=== PATIENT | female | born 1940 | race Two or more races ===

== ENCOUNTER 2018-05-24 12:49 | Inpatient (IN) | payer MEDICARE ==
[~2018-05-24] VITALS: Ht 154.9 cm; Wt 54.7 kg
[2018-05-24 13:09] VITALS: BP 148/94
[2018-05-24] MEDS ORDERED: MAG HYDROX/AL HYDROX/SIMETH 30 ML ORAL.SUSP PO PRN (13:45)
[2018-05-24] MEDS ORDERED: traMADol 50 MG TABLET PO PRN (13:45)
[2018-05-24] MEDS ORDERED: PROPAFENONE HCL 150 MG PO SCH (14:00)
[2018-05-24] MEDS ORDERED: GABA-585 PO (14:07)
[2018-05-24] MEDS ORDERED: MAG355OR12 PO (14:07)
[2018-05-24] MEDS ORDERED: APIX5TAB3 PO (14:07)
[2018-05-24] MEDS ORDERED: DONE5TAB7 PO (14:07)
[2018-05-24] MEDS ORDERED: ACET500T68 PO (14:07)
[2018-05-24] MEDS ORDERED: CALC-30 PO (14:07)
[2018-05-24] MEDS ORDERED: TRAM50TA PO (14:07)
[2018-05-24] MEDS ORDERED: RISP0.5T24 PO (14:07)
[2018-05-24] MEDS ORDERED: TRAZ-120 PO (14:07)
[2018-05-24] MEDS ORDERED: ACET325T9 PO (14:07)
[2018-05-24] MEDS ORDERED: LEVE500T6 PO (14:07)
[2018-05-24] MEDS ORDERED: MIRA25TA PO (14:07)
[2018-05-24] MEDS ORDERED: BISA10SU55 RC (14:07)
[2018-05-24] MEDS ORDERED: MAGN2400 PO (14:07)
[2018-05-24] MEDS ORDERED: LORA0.5T PO ×2 (14:07)
[2018-05-24] MEDS ORDERED: LEVO100T5 PO (14:07)
[2018-05-24] MEDS ORDERED: PROP150T2 PO (14:07)
[2018-05-24] MEDS ORDERED: OLAN5TAB9 PO (14:07)
[2018-05-24] MEDS ORDERED: METHYL SALICYLATE/MENTHOL TOPICAL OINTMENT 29GM TUBE. TP PRN (14:15)
[2018-05-24] MEDS: GABAPENTIN 100 MG CAPSULE. PO SCH ×2 (14:19→20:42)
[2018-05-24] MEDS ORDERED: LORazepam 0.5 MG TABLET PO PRN (14:30)
[2018-05-24] MEDS ORDERED: ACETAMINOPHEN 500 MG TABLET PO PRN (14:30)
[2018-05-24] MEDS ORDERED: BISACODYL 10 MG SUPP.RECT PR PRN (14:30)
[2018-05-24] MEDS ORDERED: risperiDONE 0.5 MG TABLET. PO PRN (14:45)
[2018-05-24] MEDS ORDERED: traZODone 50 MG TABLET. PO PRN (14:45)
[2018-05-24 15:17] LABS: BASO % 0 % (0-3); EOS # 0.2 x10^3/uL (0.0-0.7); EOS % 4 % (0-3); HEMATOCRIT 41.3 % (36.0-47.0); HEMOGLOBIN 13.7 g/dL (12.0-15.5); LYMPH # 1.6 x10^3/uL (1.0-4.8); LYMPH % 30 % (24-48); MEAN CORPUSCULAR HEMOGLOBIN 32 pg (25-35); MEAN CORPUSCULAR HGB CONC 33 g/dL (31-37); MEAN CORPUSCULAR VOLUME 97 fL (79-100); MONO # 0.4 x10^3/uL (0.0-1.1); MONO % 7 % (0-9); NEUT # 3.2 x10^3uL (1.8-7.7); NEUT % 59 % (31-73); PLATELET COUNT 252 x10^3/uL (140-400); RED BLOOD COUNT 4.25 x10^6/uL (3.50-5.40); RED CELL DISTRIBUTION WIDTH 13.3 % (11.5-14.5); WHITE BLOOD COUNT 5.5 x10^3/uL (4.0-11.0)
[2018-05-24 15:29] LABS: ALBUMIN 3.8 g/dL (3.4-5.0); ALBUMIN/GLOBULIN RATIO 0.9 (1.0-1.7); CALCIUM 9.1 mg/dL (8.5-10.1); CREATININE 1.8 mg/dL (0.6-1.0); GFR 27.1; MAGNESIUM 2.2 mg/dL (1.8-2.4); POTASSIUM 4.5 mmol/L (3.5-5.1); TOTAL BILIRUBIN 0.4 mg/dL (0.2-1.0); TOTAL PROTEIN 8.1 g/dL (6.4-8.2)
[2018-05-24 15:35] VITALS: BP 120/78
[2018-05-24] MEDS: PROPAFENONE 150 MG TABLET. PO SCH ×2 (16:18→20:42)
[2018-05-24] MEDS: APIXABAN 5 MG TABLET. PO SCH (20:42)
[2018-05-24] MEDS: ACETAMINOPHEN 325 MG TABLET PO SCH (20:42)
[2018-05-24] MEDS: levETIRAcetam 500 MG TABLET PO SCH (20:42)
[2018-05-24] MEDS: DONEPEZIL HCL 5 MG TABLET. PO SCH (20:42)
[2018-05-24 20:44] VITALS: BP 133/84
[2018-05-24] MEDS ORDERED: PROPAFENONE 150 MG TABLET. PO SCH (21:00)
--- NOTE | 2018-05-24 22:24 | PDOC ---
Exam Note: Christopher Note: Please also refer to the separate dictated note~for this date of service dictated separately. Discussed the patient with Nursing staff reviewed the chart.~Reviewed interim history and current functioning. Reviewed vital signs,~ Labs/ Radiology~and current medications noted below. Continue current treatment with the changes noted in the dictated addendum note Assessment: Vital Signs: Vital Signs Date Time Temp Pulse Resp B/P (MAP) Pulse Ox O2 Delivery O2 Flow Rate FiO2 05/24/18 20:44 82 133/84 (100) 05/24/18 15:35 97.7 16 97 Labs: Laboratory Tests Test 05/24/18 15:00 White Blood Count 5.5 x10^3/uL (4.0-11.0) Red Blood Count 4.25 x10^6/uL (3.50-5.40) Hemoglobin 13.7 g/dL (12.0-15.5) Hematocrit 41.3 % (36.0-47.0) Mean Corpuscular Volume 97 fL (79-100) Mean Corpuscular Hemoglobin 32 pg (25-35) Mean Corpuscular Hemoglobin Concent 33 g/dL (31-37) Red Cell Distribution Width 13.3 % (11.5-14.5) Platelet Count 252 x10^3/uL (140-400) Neutrophils (%) (Auto) 59 % (31-73) Lymphocytes (%) (Auto) 30 % (24-48) Monocytes (%) (Auto) 7 % (0-9) Eosinophils (%) (Auto) 4 % (0-3) H Basophils (%) (Auto) 0 % (0-3) Neutrophils # (Auto) 3.2 x10^3uL (1.8-7.7) Lymphocytes # (Auto) 1.6 x10^3/uL (1.0-4.8) Monocytes # (Auto) 0.4 x10^3/uL (0.0-1.1) Eosinophils # (Auto) 0.2 x10^3/uL (0.0-0.7) Basophils # (Auto) 0.0 x10^3/uL (0.0-0.2) Sodium Level 141 mmol/L (136-145) Potassium Level 4.5 mmol/L (3.5-5.1) Chloride Level 104 mmol/L (98-107) Carbon Dioxide Level 29 mmol/L (21-32) Anion Gap 8 (6-14) Blood Urea Nitrogen 26 mg/dL (7-20) H Creatinine 1.8 mg/dL (0.6-1.0) H Estimated GFR (Cockcroft-Gault) 27.1 BUN/Creatinine Ratio 14 (6-20) Glucose Level 101 mg/dL (70-99) H Calcium Level 9.1 mg/dL (8.5-10.1) Magnesium Level 2.2 mg/dL (1.8-2.4) Total Bilirubin 0.4 mg/dL (0.2-1.0) Aspartate Amino Transferase (AST) 24 U/L (15-37) Alanine Aminotransferase (ALT) 23 U/L (14-59) Alkaline Phosphatase 78 U/L (46-116) Total Protein 8.1 g/dL (6.4-8.2) Albumin 3.8 g/dL (3.4-5.0) Albumin/Globulin Ratio 0.9 (1.0-1.7) L Current Medications: Meds: Current Medications Acetaminophen (Tylenol) 650 mg BID PO Last administered on 05/24/18at 20:42; Start 05/24/18 at 21:00 Gabapentin (Neurontin) 200 mg TID PO Last administered on 05/24/18at 20:42; Start 05/24/18 at 14:30 Levothyroxine Sodium (Synthroid) 100 mcg DAILYAC PO ; Start 05/25/18 at 07:30 Al Hydroxide/Mg Hydroxide (Mylanta Plus Xs) 20 ml PRN Q4HRS PRN PO DYSPEPSIA; Start 05/24/18 at 13:45 Mirabegron (Myrbetriq) 25 mg DAILY PO ; Start 05/25/18 at 09:00 Tramadol HCl (Ultram) 50 mg PRN Q8HRS PRN PO PAIN; Start 05/24/18 at 13:45 Acetaminophen (Tylenol) 1,000 mg PRN Q6HRS PRN PO PAIN / TEMP; Start 05/24/18 at 14:30 Apixaban (Eliquis) 5 mg BID PO Last administered on 05/24/18at 20:42; Start at 21:00 Bisacodyl (Dulcolax Supp) 10 mg PRN DAILY PRN [place] CONSTIPATION; Start 05/24/18 at 14:30 Calcium/Vitamin D (Oscal D 500mg/ 200uts) 1 tab DAILY PO ; Start 05/25/18 at 09: 00 Donepezil HCl (Aricept) 5 mg HS PO Last administered on 05/24/18at 20:42; Start 05/24/18 at 21:00 Levetiracetam (Keppra) 500 mg BID PO Last administered on 05/24/18at 20:42; Start 05/24/18 at 21:00 Lorazepam (Ativan) 0.5 mg DAILYWLUN PO ; Start 05/25/18 at 12:00 Lorazepam (Ativan) 0.5 mg PRN Q6HRS PRN PO ANXIETY / AGITATION; Start 05/24/18 at 14:30 Magnesium Hydroxide (Milk Of Magnesia) 2,400 mg PRN QHS PRN PO CONSTIPATION; Start 05/24/18 at 14:30 Olanzapine (ZyPREXA ZYDIS) 2.5 mg PRN Q6HRS PRN PO ANXIETY / AGITATION; Start 05/24/18 at 14:45 Non-Formulary Medication (Propafenone Hcl ) 150 mg TID PO ; Start 05/24/18 at 14 :00; Stop 05/24/18 at 14:37; Status DC Risperidone (RisperDAL) 0.5 mg PRN Q12HR PRN PO ANXIETY / AGITATION; Start at 14:45 Trazodone HCl (Desyrel) 50 mg PRN QHS PRN PO INSOMNIA; Start 05/24/18 at 14:45 Multi-Ingredient Ointment (Analgesic [place]) 1 norbert PRN QID PRN TP MUSCLE PAIN; Start 05/24/18 at 14:15 Propafenone HCl (Rythmol) 150 mg TID PO ; Start 05/24/18 at 21:00; Status Cancel Propafenone HCl (Rythmol) 150 mg TID PO Last administered on 05/24/18at 20:42; Start 05/24/18 at 15:00 Active Scripts Active Reported Acetaminophen 500 Mg Tablet 1,000 Mg PO PRN Q6HRS PRN Lorazepam 0.5 Mg Tablet 0.5 Mg PO PRN Q6HRS PRN Dulcolax (Bisacodyl) 10 Mg Supp.rect 10 Mg RC PRN DAILY PRN Maalox Maximum Strength Susp (Mag Hydrox/Al Hydrox/Simeth) 355 Ml Oral.susp 20 Ml PO PRN Q4HRS PRN Propafenone Hcl 150 Mg Tablet 150 Mg PO TID Myrbetriq (Mirabegron) 25 Mg Tab.er.24h 25 Mg PO DAILY Trazodone Hcl 50 Mg Tablet 50 Mg PO PRN QHS PRN Tramadol Hcl (Tramadol HCl) 50 Mg Tablet 50 Mg PO PRN Q8HRS PRN Risperdal (Risperidone) 0.5 Mg Tablet 0.5 Mg PO PRN Q12HR PRN Olanzapine 5 Mg Tablet 2.5 Mg PO PRN Q6HRS PRN Milk Of Magnesia (Magnesium Hydroxide) 2,400 Mg/10 Ml Oral.susp 2,400 Mg PO PRN QHS PRN Tylenol (Acetaminophen) 325 Mg Tablet 650 Mg PO BID Lorazepam 0.5 Mg Tablet 0.5 Mg PO DAILYWLUN Levothyroxine Sodium 100 Mcg Tablet 100 Mcg PO DAILYAC Levetiracetam 500 Mg Tablet 500 Mg PO BID Gabapentin (Gabapentin) 100 Mg Capsule 200 Mg PO TID Eliquis (Apixaban) 5 Mg Tablet 5 Mg PO BID Donepezil Hcl 5 Mg Tablet 5 Mg PO HS Calcium 500 + Vit D 400 Tablet (Calcium Carbonate/Vitamin D3) 1 Each Tablet 1 Each PO DAILY I have reviewed the current psychotropics carefully including drug interactions. Risk benefit ratio favors no change other than as noted in my dictated progress note. VIKI VALLE MD May 24, 2018 22:24
[2018-05-25 05:53] VITALS: BP 133/73
[2018-05-25] MEDS ORDERED: LEVOTHYROXINE 100 MCG TABLET PO SCH (07:30)
[2018-05-25] MEDS: levETIRAcetam 500 MG TABLET PO SCH ×2 (07:51→20:12)
[2018-05-25] MEDS: APIXABAN 5 MG TABLET. PO SCH ×2 (07:51→20:12)
[2018-05-25] MEDS: ACETAMINOPHEN 325 MG TABLET PO SCH ×2 (07:52→20:12)
[2018-05-25] MEDS: CALCIUM CARB/VIT D3 500/200 TABLET PO SCH (07:56)
[2018-05-25] MEDS: GABAPENTIN 100 MG CAPSULE. PO SCH ×3 (07:56→20:12)
[2018-05-25] MEDS: PROPAFENONE 150 MG TABLET. PO SCH ×3 (07:57→20:14)
[2018-05-25] MEDS: MIRABEGRON 25 MG TAB.ER.24H PO SCH (07:57)
[2018-05-25] MEDS: LORazepam 0.5 MG TABLET PO SCH (12:10)
[2018-05-25 12:57] LABS: THYROID STIM HORMONE (TSH) 2.841 uIU/mL (0.358-3.740)
[2018-05-25 16:35] VITALS: BP 148/74
[2018-05-25 17:43] LABS: BILIRUBIN,URINE NEG (NEG); CLARITY,URINE HAZY; COLOR,URINE YELLOW; GLUCOSE,URINE NEG (NEG); UROBILINOGEN,URINE 1 mg/dL (0.2 mg/dL)
[2018-05-25 17:44] LABS: BACTERIA,URINE MANY /HPF (0-FEW); HYALINE CASTS, URINE OCC /HPF; NITRITE,URINE NEG (NEG); SQUAMOUS EPITHELIAL CELL,UR OCC /LPF
--- NOTE | 2018-05-25 18:10 | EKG ---
[address] [address] Test Date: 2018-05-24 Test Time: 16:12:02 Pat Name: MARIA LUISA RUFFIN Department: Room: [address] [place] [address] Gender: F Tile Setter: : 1940 Requested By: VIKI VALLE Order Number: [id number] Reading MD: Joseph Stevenson Measurements Intervals [place] Rate: 77 P: 28 DC: 194 QRS: -21 QRSD: 126 T: 134 QT: 416 QTc: 473 Interpretive Statements SINUS RHYTHM LEFT BUNDLE BRANCH BLOCK ABNORMAL ECG RI6.01 No previous ECG available for comparison Electronically Signed On 06-03-2018 17:03:43 [employer] by Joseph Stevenson
[2018-05-25] MEDS ORDERED: CHOLECALCIFEROL (VITAMIN D3) 50,000 UNIT CAPSULE PO SCH (18:15)
[2018-05-25] MEDS: DONEPEZIL HCL 5 MG TABLET. PO SCH (20:12)
--- NOTE | 2018-05-25 20:12 | HP ---
ADMIT DATE: 05/25/2018 PSYCHIATRIC ADMISSION HISTORY/EVALUATION This note covers elements not covered in my initial note of 05/25/2018. I have discussed with nursing staff several times since the patient's admission and prior to the patient's admission including reviewing referral information with Maribel Deluca, giving admission orders to nursing staff and earlier during the day today as the patient was extremely agitated, psychotic, started on Zyprexa p.r.n. IDENTIFYING DATA: The patient is a 77-year-old female referred from the [facility] by Dr. Hooker, her primary care physician on account of worsening confusion within the context of her dementia, probably vascular with delusion, behavioral disturbance. The patient had become aggressive at the facility, was having explosive behaviors. She flipped over a table through her coffee, was verbally and physically aggressive to staff and peers, resistive to medications and agitated. She had failed outpatient psychiatric interventions, was quite psychotic, confused. She had been previously sent to the Emergency Room on 05/20/2018, received Zyprexa intramuscular in the ER, returned back to the facility. She is unmanageable at the facility and is being admitted by her son, Bridger Villafana, who is her DPOA together with her daughter, Hoda Puente. CHIEF COMPLAINT: "I'm okay." After I visit the patient was "quite insistent" shut the door behind you. She is quite hard of hearing. I had to talk loudly to communicate with her. HISTORY OF PRESENT ILLNESS: The patient has a history of dementia, probably vascular, possibly Alzheimer's. She has been getting more confused recently having some sleep and appetite changes with worsening paranoia, agitation, aggression as noted above. Behaviors have been dangerous, out of control, especially after she flipped over a table and threw coffee at the facility. No clear history of bipolar disorder, suicidal or homicidal ideation. PAST PSYCHIATRIC HISTORY: As above. PAST MEDICAL HISTORY: Positive for atrial fibrillation, hypertension, degenerative joint disease, pacemaker in place, hypothyroidism, history of syncope, history of DVT, cardiomyopathy, seizure disorder, hard of hearing, GERD, osteoporosis, tachycardia, progressive memory deficits. ACCU-CHEKS: None. DIET: Regular. Takes medications whole, ambulates independently and with walker. CODE STATUS: Full code. ALLERGIES: ADHESIVE, AMITRIPTYLINE, PENICILLIN, SULFA, KETOROLAC, NEVANAC. FAMILY HISTORY: Noncontributory. CURRENT PSYCHOTROPICS: Aricept 5 mg a day, Ativan 0.5 1200 and p.r.n. q. 6 hours, Zyprexa 2.5 mg q. 6 hours p.r.n. psychosis, agitation. Risperdal 0.5 mg q. 12 hours p.r.n., Keppra 500 b.i.d., Neurontin 200 mg t.i.d., trazodone 50 mg at bedtime p.r.n. FAMILY HISTORY: Noncontributory. SOCIAL HISTORY: No history of alcohol, drug abuse, physical, sexual or elder abuse. She is not known to be a perpetrator. REACTION TO HOSPITALIZATION: The patient accepting of this, but oblivious to way she is. ASSETS: Supportive family, stable living at the [facility]. MENTAL STATUS EXAMINATION: The patient was seen individually evening of 05/25/2018. She is quite irritable, had to talk loudly. She is quite hard of hearing. Insight, judgment, recent and remote memory, attention, concentration, fund of knowledge poor, consistent with her diagnosis. She minimizes being depressed, but seems extremely anxious, somewhat paranoid, very confused. LABORATORY DATA: Reviewed. IMPRESSION: Major neurocognitive disorder, probably vascular with delusion, depression, behavioral disturbance; anxiety disorder, unspecified; impulse control disorder, unspecified. Rest as above. PLAN: Admit to geropsychiatry unit at [facility]. I will see the patient daily individually from a psychiatric standpoint, medical followup with Dr. Mejia. Continue the patient on her current psychotropics and Zyprexa was initiated p.r.n. Discontinue the Risperdal p.r.n. Start Zoloft 25 mg a day for 3 days, then 50 mg a day thereafter. We will make further adjustments as clinically indicated. Keep open the option of using BuSpar for anxiety and/or Depakote as a mood stabilizer. MAN Eddi VALLE MD DR: SPIKE/stefano JOB#: [id number] / [id number]
--- NOTE | 2018-05-25 21:19 | CONS ---
DATE OF CONSULTATION: 05/25/2018 REASON FOR CONSULTATION: Medical management. HISTORY OF PRESENT ILLNESS: The patient is a 77-year-old female, resident at [facility], who was admitted on account of having displaying explosive behavior, flipped over a table, threw coffee, verbally and physically aggressive to staff and peers, resistive to medication, agitation, all this in a background of dementia with behavioral disturbances. She apparently was seen at [facility] and has had extensive lab work that seemed to be within acceptable range. [facility]. PAST MEDICAL HISTORY: Significant for atrial fibrillation, hypertension, degenerative joint disease, pacemaker, hypothyroidism, syncope, history of DVT, cardiomyopathy, seizure disorder, hearing loss, gastroesophageal reflux disease, osteoporosis, tachycardia and dementia. PAST SURGICAL HISTORY: Unremarkable. ALLERGIES: SHE IS ALLERGIC TO ADHESIVES, AMITRIPTYLINE, PENICILLIN, SULFA, KETOROLAC AND NEVANAC. FAMILY HISTORY: Noncontributory. SOCIAL HISTORY: She is a resident at [facility]. She apparently does not smoke, drink alcohol or recreational drugs. She ambulates with a walker. MEDICATIONS: She is currently on following medications: She is on Aricept 5 mg at bedtime, apixaban 5 mg twice a day, propafenone 150 mg 3 times a day, tramadol 50 mg every 8 hours, acetaminophen 650 mg p.o. b.i.d. and 1000 mg every 6 hours as needed, gabapentin 200 mg 3 times a day, Keppra 500 mg twice a day, trazodone 50 mg at bedtime, olanzapine 2.5 mg every 6 hours, risperidone 0.5 mg every 12 hours and lorazepam 0.5 mg daily with lunch, lorazepam 0.5 mg every 6 hours as needed for anxiety and agitation. She is on calcium carbonate with vitamin D3 one tablet once a day, Maalox 20 mL every 4 hours as needed for dyspepsia, bisacodyl 10 mg suppositories as needed rectally for constipation, magnesium hydroxide for milk of magnesia 30 mL p.o. daily p.r.n. for constipation, levothyroxine sodium 100 mcg daily before breakfast and Myrbetriq 25 mg daily for overactive bladder. REVIEW OF SYSTEMS: Unobtainable as the patient is very hard of hearing and demented. PHYSICAL EXAMINATION: GENERAL: When I examined her this afternoon, she was sitting comfortably in her chair, in no apparent respiratory distress, she was pale, but no jaundice, cyanosis or thyromegaly. No jugular venous distension. No limb edema. VITAL SIGNS: Her heart rate was 67, blood pressure 148/74, temperature was 98, respiratory rate was 18 and oxygen saturation was 97%. HEAD, EYES, EARS, NOSE AND THROAT: Showed normocephalic, atraumatic. NECK: Supple. HEART: Showed normal first and second heart sounds. No gallop, rub or murmur. CHEST: Clear to auscultation. No crepitation or rhonchi. ABDOMEN: Distended, soft, nontender. No guarding or rigidity. No organomegaly. All hernial orifices intact. Bowel sounds normal. NEUROLOGIC: She is very hard of hearing, otherwise, all other cranial nerves are intact. EXTREMITIES: She moves extremities without difficulty. She ambulates with a walker. LABORATORY DATA: Today showed a white cell count of 5500, hemoglobin 14, hematocrit 41, MCV 97 and platelet count 252,000. Her chemistry showed a serum sodium 141, potassium 4.5, chloride 104, bicarbonate 29, anion gap of 8, BUN 26, creatinine 1.8. Estimated GFR was 27 mL per minute. Her glucose was 101, calcium was 9.1, magnesium was 2.2. Serum iron was 52, TIBC was 323, iron saturation was 16%. Her total bilirubin, AST, ALT, alkaline phosphatase were normal. Total protein 8.1, albumin 3.8. Her serum triglycerides were 99. Total cholesterol 184, LDL cholesterol was 111, VLDL was 19 and HDL cholesterol was 54, ratio was 3. Her vitamin B12 was 328 pg/mL, 25-hydroxy vitamin D was only 24.9. Her TSH was normal. Urinalysis showed that the urine was yellow, hazy with a pH of 8.5, specific gravity 1.015. There was small amount of protein. The urine was negative for glucose, ketones, small amount of blood, negative for nitrite, small amount of leukocyte esterase, 1-2 rbc's, 11-20 wbc's, and many bacteria. Her treponema pallidum antibody was nonreactive. IMPRESSION: In summary, this is a 77-year-old female patient, a resident at [facility], who was admitted on account of explosive behavior, flipped over a table, threw coffee, verbally and physically aggressive to staff and peers, resistive to medication and very agitated, all this in a background of dementia with behavioral disturbances. She has multiple medical problems including atrial fibrillation, hypertension, history of deep vein thrombosis, hypothyroidism, cardiomyopathy, seizure disorder, severe sensorineural deafness, gastroesophageal reflux disease, osteoporosis, dementia. She seemed to be, all in all, medically stable. All her vital signs are within acceptable range. Her lab works are all within normal range except perhaps for vitamin D deficiency. Urinalysis showed that she has leukocytosis and many bacteria and I will definitely send the urine for culture and sensitivity. She does not seem to be symptomatic. I would wait for the culture and sensitivity, and once we have the culture and sensitivity, we will start her on antibiotic unless she is decompensated, becomes afebrile, and we will start her sooner on that. Thank you, Dr. Jones, for allowing me to participate in the care of this patient. LEONARDO GONZALES MD DR: ARLENE/stefano JOB#: [id number] / [id number]
[2018-05-25 22:08] LABS: THYROXINE 7.1 ug/dL (4.5-12.0)
--- NOTE | 2018-05-25 22:28 | PDOC ---
Exam Note: Christopher Note: Please also refer to the separate dictated note~for this date of service dictated separately.~Patient seen individually. Discussed the patient with Nursing staff reviewed the chart.~Reviewed interim history and current functioning. Reviewed vital signs,~Labs/ Radiology~and current medications noted below. Continue current treatment with the changes noted in the dictated addendum note Assessment: Vital Signs: Vital Signs Date Time Temp Pulse Resp B/P (MAP) Pulse Ox O2 Delivery O2 Flow Rate FiO2 05/25/18 20:14 67 148/74 05/25/18 16:35 98.0 18 97 I&O Intake and Output 05/25/18 07:01 Intake Total 360 ml Balance 360 ml Intake Oral 360 ml Labs: Laboratory Tests Test 05/25/18 17:00 Urine Collection Type Unknown Urine Color Yellow Urine Clarity Hazy Urine pH 8.5 Urine Specific [place] 1.015 Urine Protein 30 mg/dl (NEG-TRACE) Urine Glucose (UA) Neg mg/dL (NEG) Urine Ketones (Stick) Neg mg/dL (NEG) Urine Blood Small (NEG) Urine Nitrite Neg (NEG) Urine Bilirubin Neg (NEG) Urine Urobilinogen Dipstick 1 mg/dL (0.2 mg/dL) Urine Leukocyte Esterase Small (NEG) Urine RBC 1-2 /HPF (0-2) Urine WBC 11-20 /HPF (0-4) Urine Squamous Epithelial Cells Occ /LPF Urine Bacteria Many /HPF (0-FEW) Urine Hyaline Casts Occ /HPF Current Medications: Meds: Current Medications Acetaminophen (Tylenol) 650 mg BID PO Last administered on 05/25/18at 20:12; Start 05/24/18 at 21:00 Gabapentin (Neurontin) 200 mg TID PO Last administered on 05/25/18at 20:12; Start 05/24/18 at 14:30 Levothyroxine Sodium (Synthroid) 100 mcg DAILYAC PO Last administered on at 07:56; Start 05/25/18 at 07:30; Stop 05/25/18 at 07:59; Status DC Al Hydroxide/Mg Hydroxide (Mylanta Plus Xs) 20 ml PRN Q4HRS PRN PO DYSPEPSIA; Start 05/24/18 at 13:45 Mirabegron (Myrbetriq) 25 mg DAILY PO Last administered on 05/25/18at 07:57; Start 05/25/18 at 09:00 Tramadol HCl (Ultram) 50 mg PRN Q8HRS PRN PO PAIN; Start 05/24/18 at 13:45 Acetaminophen (Tylenol) 1,000 mg PRN Q6HRS PRN PO PAIN / TEMP; Start 05/24/18 at 14:30 Apixaban (Eliquis) 5 mg BID PO Last administered on 05/25/18at 20:12; Start at 21:00 Bisacodyl (Dulcolax Supp) 10 mg PRN DAILY PRN [place] CONSTIPATION; Start 05/24/18 at 14:30 Calcium/Vitamin D (Oscal D 500mg/ 200uts) 1 tab DAILY PO Last administered on at 07:56; Start 05/25/18 at 09:00 Donepezil HCl (Aricept) 5 mg HS PO Last administered on 05/25/18at 20:12; Start 05/24/18 at 21:00 Levetiracetam (Keppra) 500 mg BID PO Last administered on 05/25/18at 20:12; Start 05/24/18 at 21:00 Lorazepam (Ativan) 0.5 mg DAILYWLUN PO Last administered on 05/25/18at 12:10; Start 05/25/18 at 12:00 Lorazepam (Ativan) 0.5 mg PRN Q6HRS PRN PO ANXIETY / AGITATION; Start 05/24/18 at 14:30 Magnesium Hydroxide (Milk Of Magnesia) 2,400 mg PRN QHS PRN PO CONSTIPATION; Start 05/24/18 at 14:30 Olanzapine (ZyPREXA ZYDIS) 2.5 mg PRN Q6HRS PRN PO ANXIETY / AGITATION Last administered on 05/25/18at 10:15; Start 05/24/18 at 14:45 Non-Formulary Medication (Propafenone Hcl ) 150 mg TID PO ; Start 05/24/18 at 14 :00; Stop 05/24/18 at 14:37; Status DC Risperidone (RisperDAL) 0.5 mg PRN Q12HR PRN PO ANXIETY / AGITATION; Start at 14:45; Stop 05/25/18 at 21:57; Status DC Trazodone HCl (Desyrel) 50 mg PRN QHS PRN PO INSOMNIA; Start 05/24/18 at 14:45 Multi-Ingredient Ointment (Analgesic [place]) 1 norbert PRN QID PRN TP MUSCLE PAIN; Start 05/24/18 at 14:15 Propafenone HCl (Rythmol) 150 mg TID PO ; Start 05/24/18 at 21:00; Status Cancel Propafenone HCl (Rythmol) 150 mg TID PO Last administered on 05/25/18at 20:14; Start 05/24/18 at 15:00 Levothyroxine Sodium (Synthroid) 100 mcg 0600 PO ; Start 05/26/18 at 06:00 Vitamin D (Vitamin D3) 50,000 unit WEEKLY PO ; Start 05/25/18 at 18:15; Stop at 18:36; Status DC Vitamin D (Vitamin D3) 50,000 unit WEEKLY PO ; Start 05/26/18 at 09:00 Sertraline HCl (Zoloft) 25 mg DAILY PO ; Start 05/26/18 at 09:00; Stop 05/29/18 at 08:59 Sertraline HCl (Zoloft) 50 mg DAILY PO ; Start 05/29/18 at 09:00 Active Scripts Active Reported Acetaminophen 500 Mg Tablet 1,000 Mg PO PRN Q6HRS PRN Lorazepam 0.5 Mg Tablet 0.5 Mg PO PRN Q6HRS PRN Dulcolax (Bisacodyl) 10 Mg Supp.rect 10 Mg RC PRN DAILY PRN Maalox Maximum Strength Susp (Mag Hydrox/Al Hydrox/Simeth) 355 Ml Oral.susp 20 Ml PO PRN Q4HRS PRN Propafenone Hcl 150 Mg Tablet 150 Mg PO TID Myrbetriq (Mirabegron) 25 Mg Tab.er.24h 25 Mg PO DAILY Trazodone Hcl 50 Mg Tablet 50 Mg PO PRN QHS PRN Tramadol Hcl (Tramadol HCl) 50 Mg Tablet 50 Mg PO PRN Q8HRS PRN Risperdal (Risperidone) 0.5 Mg Tablet 0.5 Mg PO PRN Q12HR PRN Olanzapine 5 Mg Tablet 2.5 Mg PO PRN Q6HRS PRN Milk Of Magnesia (Magnesium Hydroxide) 2,400 Mg/10 Ml Oral.susp 2,400 Mg PO PRN QHS PRN Tylenol (Acetaminophen) 325 Mg Tablet 650 Mg PO BID Lorazepam 0.5 Mg Tablet 0.5 Mg PO DAILYWLUN Levothyroxine Sodium 100 Mcg Tablet 100 Mcg PO DAILYAC Levetiracetam 500 Mg Tablet 500 Mg PO BID Gabapentin (Gabapentin) 100 Mg Capsule 200 Mg PO TID Eliquis (Apixaban) 5 Mg Tablet 5 Mg PO BID Donepezil Hcl 5 Mg Tablet 5 Mg PO HS Calcium 500 + Vit D 400 Tablet (Calcium Carbonate/Vitamin D3) 1 Each Tablet 1 Each PO DAILY I have reviewed the current psychotropics carefully including drug interactions. Risk benefit ratio favors no change other than as noted in my dictated progress note. Diagnosis: Problems: (1) Anxiety disorder (2) Dementia, vascular, with delusions (3) Dementia, vascular, with depression (4) Dementia in Alzheimer's disease with delusions (5) Dementia in Alzheimer's disease with depression (6) Impulse control disorder VIKI VALLE MD May 25, 2018 22:28
[2018-05-25 23:11] LABS: HEMOGLOBIN A1C 5.3 % (4.8-5.6)
[2018-05-26] MEDS: LEVOTHYROXINE 100 MCG TABLET PO SCH (05:27)
[2018-05-26 05:31] VITALS: BP 114/77
[2018-05-26] MEDS: CALCIUM CARB/VIT D3 500/200 TABLET PO SCH (07:48)
[2018-05-26] MEDS: ACETAMINOPHEN 325 MG TABLET PO SCH ×2 (07:48→20:08)
[2018-05-26] MEDS: MIRABEGRON 25 MG TAB.ER.24H PO SCH (07:49)
[2018-05-26] MEDS: levETIRAcetam 500 MG TABLET PO SCH ×2 (07:49→20:08)
[2018-05-26] MEDS: GABAPENTIN 100 MG CAPSULE. PO SCH ×3 (07:49→20:09)
[2018-05-26] MEDS: PROPAFENONE 150 MG TABLET. PO SCH ×3 (07:49→20:09)
[2018-05-26] MEDS: APIXABAN 5 MG TABLET. PO SCH ×2 (07:49→20:09)
[2018-05-26] MEDS: SERTRALINE 25 MG TABLET. PO SCH (07:50)
[2018-05-26] MEDS: CHOLECALCIFEROL (VITAMIN D3) 50,000 UNIT CAPSULE PO SCH (07:51)
[2018-05-26] MEDS: LORazepam 0.5 MG TABLET PO SCH (11:58)
[2018-05-26 15:43] VITALS: BP 107/70
[2018-05-26] MEDS: DONEPEZIL HCL 5 MG TABLET. PO SCH (20:09)
--- NOTE | 2018-05-26 22:19 | PDOC ---
Exam Note: Christopher Note: Please also refer to the separate dictated note~for this date of service dictated separately.~Patient seen individually. Discussed the patient with Nursing staff reviewed the chart.~Reviewed interim history and current functioning. Reviewed vital signs,~Labs/ Radiology~and current medications noted below. Continue current treatment with the changes noted in the dictated addendum note Assessment: Vital Signs: Vital Signs Date Time Temp Pulse Resp B/P (MAP) Pulse Ox O2 Delivery O2 Flow Rate FiO2 05/26/18 20:09 72 107/70 05/26/18 15:43 97.2 20 94 05/26/18 05:31 Room Air I&O Intake and Output 05/26/18 07:01 Intake Total 1320 ml Balance 1320 ml Intake Oral 1320 ml Current Medications: Meds: Current Medications Acetaminophen (Tylenol) 650 mg BID PO Last administered on 05/26/18at 20:08; Start 05/24/18 at 21:00 Gabapentin (Neurontin) 200 mg TID PO Last administered on 05/26/18at 20:09; Start 05/24/18 at 14:30 Levothyroxine Sodium (Synthroid) 100 mcg DAILYAC PO Last administered on at 07:56; Start 05/25/18 at 07:30; Stop 05/25/18 at 07:59; Status DC Al Hydroxide/Mg Hydroxide (Mylanta Plus Xs) 20 ml PRN Q4HRS PRN PO DYSPEPSIA; Start 05/24/18 at 13:45 Mirabegron (Myrbetriq) 25 mg DAILY PO Last administered on 05/26/18at 07:49; Start 05/25/18 at 09:00 Tramadol HCl (Ultram) 50 mg PRN Q8HRS PRN PO PAIN; Start 05/24/18 at 13:45 Acetaminophen (Tylenol) 1,000 mg PRN Q6HRS PRN PO PAIN / TEMP; Start 05/24/18 at 14:30 Apixaban (Eliquis) 5 mg BID PO Last administered on 05/26/18at 20:09; Start at 21:00 Bisacodyl (Dulcolax Supp) 10 mg PRN DAILY PRN [place] CONSTIPATION; Start 05/24/18 at 14:30 Calcium/Vitamin D (Oscal D 500mg/ 200uts) 1 tab DAILY PO Last administered on at 07:48; Start 05/25/18 at 09:00 Donepezil HCl (Aricept) 5 mg HS PO Last administered on 05/26/18at 20:09; Start 05/24/18 at 21:00 Levetiracetam (Keppra) 500 mg BID PO Last administered on 05/26/18 20:08; Start 05/24/18 at 21:00 Lorazepam (Ativan) 0.5 mg DAILYWLUN PO Last administered on 05/26/18at 11:58; Start 05/25/18 at 12:00 Lorazepam (Ativan) 0.5 mg PRN Q6HRS PRN PO ANXIETY / AGITATION; Start 05/24/18 at 14:30 Magnesium Hydroxide (Milk Of Magnesia) 2,400 mg PRN QHS PRN PO CONSTIPATION; Start 05/24/18 at 14:30 Olanzapine (ZyPREXA ZYDIS) 2.5 mg PRN Q6HRS PRN PO ANXIETY / AGITATION Last administered on 05/26/18at 12:33; Start 05/24/18 at 14:45 Non-Formulary Medication (Propafenone Hcl ) 150 mg TID PO ; Start 05/24/18 at 14 :00; Stop 05/24/18 at 14:37; Status DC Risperidone (RisperDAL) 0.5 mg PRN Q12HR PRN PO ANXIETY / AGITATION; Start at 14:45; Stop 05/25/18 at 21:57; Status DC Trazodone HCl (Desyrel) 50 mg PRN QHS PRN PO INSOMNIA; Start 05/24/18 at 14:45 Multi-Ingredient Ointment (Analgesic [place]) 1 norbert PRN QID PRN TP MUSCLE PAIN; Start 05/24/18 at 14:15 Propafenone HCl (Rythmol) 150 mg TID PO ; Start 05/24/18 at 21:00; Status Cancel Propafenone HCl (Rythmol) 150 mg TID PO Last administered on 05/26/18at 20:09; Start 05/24/18 at 15:00 Levothyroxine Sodium (Synthroid) 100 mcg 0600 PO Last administered on at 05:27; Start 05/26/18 at 06:00 Vitamin D (Vitamin D3) 50,000 unit WEEKLY PO ; Start 05/25/18 at 18:15; Stop at 18:36; Status DC Vitamin D (Vitamin D3) 50,000 unit WEEKLY PO Last administered on 05/26/18at 07: 51; Start 05/26/18 at 09:00 Sertraline HCl (Zoloft) 25 mg DAILY PO Last administered on 05/26/18at 07:50; Start 05/26/18 at 09:00; Stop 05/29/18 at 08:59 Sertraline HCl (Zoloft) 50 mg DAILY PO ; Start 05/29/18 at 09:00 Active Scripts Active Reported Acetaminophen 500 Mg Tablet 1,000 Mg PO PRN Q6HRS PRN Lorazepam 0.5 Mg Tablet 0.5 Mg PO PRN Q6HRS PRN Dulcolax (Bisacodyl) 10 Mg Supp.rect 10 Mg RC PRN DAILY PRN Maalox Maximum Strength Susp (Mag Hydrox/Al Hydrox/Simeth) 355 Ml Oral.susp 20 Ml PO PRN Q4HRS PRN Propafenone Hcl 150 Mg Tablet 150 Mg PO TID Myrbetriq (Mirabegron) 25 Mg Tab.er.24h 25 Mg PO DAILY Trazodone Hcl 50 Mg Tablet 50 Mg PO PRN QHS PRN Tramadol Hcl (Tramadol HCl) 50 Mg Tablet 50 Mg PO PRN Q8HRS PRN Risperdal (Risperidone) 0.5 Mg Tablet 0.5 Mg PO PRN Q12HR PRN Olanzapine 5 Mg Tablet 2.5 Mg PO PRN Q6HRS PRN Milk Of Magnesia (Magnesium Hydroxide) 2,400 Mg/10 Ml Oral.susp 2,400 Mg PO PRN QHS PRN Tylenol (Acetaminophen) 325 Mg Tablet 650 Mg PO BID Lorazepam 0.5 Mg Tablet 0.5 Mg PO DAILYWLUN Levothyroxine Sodium 100 Mcg Tablet 100 Mcg PO DAILYAC Levetiracetam 500 Mg Tablet 500 Mg PO BID Gabapentin (Gabapentin) 100 Mg Capsule 200 Mg PO TID Eliquis (Apixaban) 5 Mg Tablet 5 Mg PO BID Donepezil Hcl 5 Mg Tablet 5 Mg PO HS Calcium 500 + Vit D 400 Tablet (Calcium Carbonate/Vitamin D3) 1 Each Tablet 1 Each PO DAILY I have reviewed the current psychotropics carefully including drug interactions. Risk benefit ratio favors no change other than as noted in my dictated progress note. Diagnosis: Problems: (1) Anxiety disorder (2) Dementia, vascular, with delusions (3) Dementia, vascular, with depression (4) Dementia in Alzheimer's disease with delusions (5) Dementia in Alzheimer's disease with depression (6) Impulse control disorder VIKI VALLE MD May 26, 2018 22:19
--- NOTE | 2018-05-26 23:27 | PN ---
DATE: 05/25/2018 PSYCHIATRIC PROGRESS NOTE This late entry, date of service 05/25/2018 covers elements not covered in my initial note 05/25/2018 and initial admission history and evaluation. MENTAL STATUS EXAM: The patient does present with depressive symptoms. PLAN: We will start Zoloft 25 mg a day for 3 days, then 50 mg a day and stop the Risperdal p.r.n. since she is on Zyprexa p.r.n. Maintain Aricept along with Ativan scheduled and p.r.n., trazodone, gabapentin, and Keppra, the latter for her seizures. VIKI VALLE MD DR: SPIKE/stefano JOB#: [id number] / [id number]
[2018-05-27 06:13] VITALS: BP 92/59
[2018-05-27] MEDS: LEVOTHYROXINE 100 MCG TABLET PO SCH (06:28)
[2018-05-27] MEDS: SERTRALINE 25 MG TABLET. PO SCH (07:08)
[2018-05-27] MEDS: APIXABAN 5 MG TABLET. PO SCH ×2 (07:08→19:50)
[2018-05-27] MEDS: levETIRAcetam 500 MG TABLET PO SCH ×2 (07:08→19:50)
[2018-05-27] MEDS: CALCIUM CARB/VIT D3 500/200 TABLET PO SCH (07:08)
[2018-05-27] MEDS: GABAPENTIN 100 MG CAPSULE. PO SCH ×3 (07:08→19:55)
[2018-05-27] MEDS: ACETAMINOPHEN 325 MG TABLET PO SCH ×2 (07:09→19:50)
[2018-05-27] MEDS: MIRABEGRON 25 MG TAB.ER.24H PO SCH (07:09)
[2018-05-27] MEDS: PROPAFENONE 150 MG TABLET. PO SCH ×3 (08:58→19:55)
[2018-05-27] MEDS: LORazepam 0.5 MG TABLET PO SCH (12:14)
[2018-05-27 16:53] VITALS: BP 128/66
[2018-05-27] MEDS: DONEPEZIL HCL 10 MG TABLET PO SCH (19:56)
--- NOTE | 2018-05-27 20:32 | PN ---
DATE: 05/26/2018 This late entry for 05/26/2018 covers elements not covered in my initial note. SUBJECTIVE: I met with the patient in the evening. The patient slept 7 hours previous night. I met with her in her room. She has been disorganized per nursing staff, looking for her baby, did well in the morning till the late afternoon, then was agitated, angry, looking for "Ambrose." She received Zyprexa at 12:40 p.m. then took a nap and did better. REVIEW OF SYSTEMS: No CV, , pulmonary, eye, ENT system symptoms on review. Gait unsteady with walker. Reliability poor. MENTAL STATUS EXAM: Oriented to herself. Insight, judgment, recent and remote memory, attention, concentration, fund of knowledge poor, consistent with her diagnosis mentioned in my initial note. IMPRESSION: Major neurocognitive disorder, Alzheimer, vascular with delusion, depression, behavioral disturbance; anxiety disorder, unspecified; impulse control disorder, unspecified. PLAN: Continue psychotropics from initial note. Zoloft was initiated. We will gradually increase to 50 mg a day. Risperdal was discontinued p.r.n. MAN Eddi VALLE MD DR: SPIKE/stefano JOB#: [id number] / [id number]
--- NOTE | 2018-05-27 22:33 | PDOC ---
Exam Note: Christopher Note: Please also refer to the separate dictated note~for this date of service dictated separately.~Patient seen individually. Discussed the patient with Nursing staff reviewed the chart.~Reviewed interim history and current functioning. Reviewed vital signs,~Labs/ Radiology~and current medications noted below. Continue current treatment with the changes noted in the dictated addendum note Assessment: Vital Signs: Vital Signs Date Time Temp Pulse Resp B/P (MAP) Pulse Ox O2 Delivery O2 Flow Rate FiO2 05/27/18 19:55 74 128/66 05/27/18 16:53 98.4 19 95 05/26/18 05:31 Room Air I&O Intake and Output 05/27/18 07:01 Intake Total 960 ml Balance 960 ml Intake Oral 960 ml Current Medications: Meds: Current Medications Acetaminophen (Tylenol) 650 mg BID PO Last administered on 05/27/18at 19:50; Start 05/24/18 at 21:00 Gabapentin (Neurontin) 200 mg TID PO Last administered on 05/27/18at 19:55; Start 05/24/18 at 14:30 Levothyroxine Sodium (Synthroid) 100 mcg DAILYAC PO Last administered on at 07:56; Start 05/25/18 at 07:30; Stop 05/25/18 at 07:59; Status DC Al Hydroxide/Mg Hydroxide (Mylanta Plus Xs) 20 ml PRN Q4HRS PRN PO DYSPEPSIA; Start 05/24/18 at 13:45 Mirabegron (Myrbetriq) 25 mg DAILY PO Last administered on 05/27/18at 07:09; Start 05/25/18 at 09:00 Tramadol HCl (Ultram) 50 mg PRN Q8HRS PRN PO PAIN; Start 05/24/18 at 13:45 Acetaminophen (Tylenol) 1,000 mg PRN Q6HRS PRN PO PAIN / TEMP; Start 05/24/18 at 14:30 Apixaban (Eliquis) 5 mg BID PO Last administered on 05/27/18at 19:50; Start at 21:00 Bisacodyl (Dulcolax Supp) 10 mg PRN DAILY PRN [place] CONSTIPATION; Start 05/24/18 at 14:30 Calcium/Vitamin D (Oscal D 500mg/ 200uts) 1 tab DAILY PO Last administered on at 07:08; Start 05/25/18 at 09:00 Donepezil HCl (Aricept) 5 mg HS PO Last administered on 05/26/18at 20:09; Start 05/24/18 at 21:00; Stop 05/27/18 at 18:19; Status DC Levetiracetam (Keppra) 500 mg BID PO Last administered on 05/27/18at 19:50; Start 05/24/18 at 21:00 Lorazepam (Ativan) 0.5 mg DAILYWLUN PO Last administered on 05/27/18at 12:14; Start 05/25/18 at 12:00 Lorazepam (Ativan) 0.5 mg PRN Q6HRS PRN PO ANXIETY / AGITATION; Start 05/24/18 at 14:30 Magnesium Hydroxide (Milk Of Magnesia) 2,400 mg PRN QHS PRN PO CONSTIPATION; Start 05/24/18 at 14:30 Olanzapine (ZyPREXA ZYDIS) 2.5 mg PRN Q6HRS PRN PO ANXIETY / AGITATION Last administered on 05/26/18at 12:33; Start 05/24/18 at 14:45 Non-Formulary Medication (Propafenone Hcl ) 150 mg TID PO ; Start 05/24/18 at 14 :00; Stop 05/24/18 at 14:37; Status DC Risperidone (RisperDAL) 0.5 mg PRN Q12HR PRN PO ANXIETY / AGITATION; Start at 14:45; Stop 05/25/18 at 21:57; Status DC Trazodone HCl (Desyrel) 50 mg PRN QHS PRN PO INSOMNIA; Start 05/24/18 at 14:45 Multi-Ingredient Ointment (Analgesic [place]) 1 norbert PRN QID PRN TP MUSCLE PAIN; Start 05/24/18 at 14:15 Propafenone HCl (Rythmol) 150 mg TID PO ; Start 05/24/18 at 21:00; Status Cancel Propafenone HCl (Rythmol) 150 mg TID PO Last administered on 05/27/18at 19:55; Start 05/24/18 at 15:00 Levothyroxine Sodium (Synthroid) 100 mcg 0600 PO Last administered on at 06:28; Start 05/26/18 at 06:00 Vitamin D (Vitamin D3) 50,000 unit WEEKLY PO ; Start 05/25/18 at 18:15; Stop at 18:36; Status DC Vitamin D (Vitamin D3) 50,000 unit WEEKLY PO Last administered on 05/26/18at 07: 51; Start 05/26/18 at 09:00 Sertraline HCl (Zoloft) 25 mg DAILY PO Last administered on 05/27/18at 07:08; Start 05/26/18 at 09:00; Stop 05/29/18 at 08:59 Sertraline HCl (Zoloft) 50 mg DAILY PO ; Start 05/29/18 at 09:00 Donepezil HCl (Aricept) 10 mg QHS PO Last administered on 05/27/18at 19:56; Start 05/27/18 at 21:00 Active Scripts Active Reported Acetaminophen 500 Mg Tablet 1,000 Mg PO PRN Q6HRS PRN Lorazepam 0.5 Mg Tablet 0.5 Mg PO PRN Q6HRS PRN Dulcolax (Bisacodyl) 10 Mg Supp.rect 10 Mg RC PRN DAILY PRN Maalox Maximum Strength Susp (Mag Hydrox/Al Hydrox/Simeth) 355 Ml Oral.susp 20 Ml PO PRN Q4HRS PRN Propafenone Hcl 150 Mg Tablet 150 Mg PO TID Myrbetriq (Mirabegron) 25 Mg Tab.er.24h 25 Mg PO DAILY Trazodone Hcl 50 Mg Tablet 50 Mg PO PRN QHS PRN Tramadol Hcl (Tramadol HCl) 50 Mg Tablet 50 Mg PO PRN Q8HRS PRN Risperdal (Risperidone) 0.5 Mg Tablet 0.5 Mg PO PRN Q12HR PRN Olanzapine 5 Mg Tablet 2.5 Mg PO PRN Q6HRS PRN Milk Of Magnesia (Magnesium Hydroxide) 2,400 Mg/10 Ml Oral.susp 2,400 Mg PO PRN QHS PRN Tylenol (Acetaminophen) 325 Mg Tablet 650 Mg PO BID Lorazepam 0.5 Mg Tablet 0.5 Mg PO DAILYWLUN Levothyroxine Sodium 100 Mcg Tablet 100 Mcg PO DAILYAC Levetiracetam 500 Mg Tablet 500 Mg PO BID Gabapentin (Gabapentin) 100 Mg Capsule 200 Mg PO TID Eliquis (Apixaban) 5 Mg Tablet 5 Mg PO BID Donepezil Hcl 5 Mg Tablet 5 Mg PO HS Calcium 500 + Vit D 400 Tablet (Calcium Carbonate/Vitamin D3) 1 Each Tablet 1 Each PO DAILY I have reviewed the current psychotropics carefully including drug interactions. Risk benefit ratio favors no change other than as noted in my dictated progress note. Diagnosis: Problems: (1) Anxiety disorder (2) Dementia, vascular, with delusions (3) Dementia, vascular, with depression (4) Dementia in Alzheimer's disease with delusions (5) Dementia in Alzheimer's disease with depression (6) Impulse control disorder VIKI VALLE MD May 27, 2018 22:33
[2018-05-28] MEDS: LEVOTHYROXINE 100 MCG TABLET PO SCH (05:17)
[2018-05-28 05:30] VITALS: BP 112/66
[2018-05-28] MEDS: SERTRALINE 25 MG TABLET. PO SCH (07:59)
[2018-05-28] MEDS: CALCIUM CARB/VIT D3 500/200 TABLET PO SCH (07:59)
[2018-05-28] MEDS: APIXABAN 5 MG TABLET. PO SCH ×2 (07:59→20:05)
[2018-05-28] MEDS: levETIRAcetam 500 MG TABLET PO SCH ×2 (07:59→20:04)
[2018-05-28] MEDS: GABAPENTIN 100 MG CAPSULE. PO SCH ×3 (07:59→20:05)
[2018-05-28] MEDS: MIRABEGRON 25 MG TAB.ER.24H PO SCH (08:01)
[2018-05-28] MEDS: ACETAMINOPHEN 325 MG TABLET PO SCH ×2 (08:01→20:05)
[2018-05-28] MEDS: PROPAFENONE 150 MG TABLET. PO SCH ×3 (08:02→20:05)
[2018-05-28] MEDS: LORazepam 0.5 MG TABLET PO SCH (12:11)
[2018-05-28] MEDS: MAGNESIUM HYDROXIDE 2,400 MG/30 ML ORAL.SUSP. PO PRN (12:11)
[2018-05-28] MEDS: DONEPEZIL HCL 10 MG TABLET PO SCH (20:04)
[2018-05-28] MEDS: AMOXICILLIN/K CLAV 500/125MG TABLET. PO SCH (20:08)
--- NOTE | 2018-05-28 22:44 | PDOC ---
Exam Note: Christopher Note: Please also refer to the separate dictated note~for this date of service dictated separately.~Patient seen individually. Discussed the patient with Nursing staff reviewed the chart.~Reviewed interim history and current functioning. Reviewed vital signs,~Labs/ Radiology~and current medications noted below. Continue current treatment with the changes noted in the dictated addendum note Assessment: Vital Signs: Vital Signs Date Time Temp Pulse Resp B/P (MAP) Pulse Ox O2 Delivery O2 Flow Rate FiO2 05/28/18 20:05 62 112/66 05/28/18 05:30 98.5 18 94 05/26/18 05:31 Room Air I&O Intake and Output 05/28/18 07:01 Intake Total 640 ml Balance 640 ml Intake Oral 640 ml Current Medications: Meds: Current Medications Acetaminophen (Tylenol) 650 mg BID PO Last administered on 05/28/18at 20:05; Start 05/24/18 at 21:00 Gabapentin (Neurontin) 200 mg TID PO Last administered on 05/28/18at 20:05; Start 05/24/18 at 14:30 Levothyroxine Sodium (Synthroid) 100 mcg DAILYAC PO Last administered on at 07:56; Start 05/25/18 at 07:30; Stop 05/25/18 at 07:59; Status DC Al Hydroxide/Mg Hydroxide (Mylanta Plus Xs) 20 ml PRN Q4HRS PRN PO DYSPEPSIA; Start 05/24/18 at 13:45 Mirabegron (Myrbetriq) 25 mg DAILY PO Last administered on 05/28/18at 08:01; Start 05/25/18 at 09:00 Tramadol HCl (Ultram) 50 mg PRN Q8HRS PRN PO PAIN; Start 05/24/18 at 13:45 Acetaminophen (Tylenol) 1,000 mg PRN Q6HRS PRN PO PAIN / TEMP; Start 05/24/18 at 14:30 Apixaban (Eliquis) 5 mg BID PO Last administered on 05/28/18at 20:05; Start at 21:00 Bisacodyl (Dulcolax Supp) 10 mg PRN DAILY PRN [place] CONSTIPATION; Start 05/24/18 at 14:30 Calcium/Vitamin D (Oscal D 500mg/ 200uts) 1 tab DAILY PO Last administered on 07:59; Start 05/25/18 at 09:00 Donepezil HCl (Aricept) 5 mg HS PO Last administered on 05/26/18 20:09; Start 05/24/18 at 21:00; Stop 05/27/18 at 18:19; Status DC Levetiracetam (Keppra) 500 mg BID PO Last administered on 05/28/18 20:04; Start 05/24/18 at 21:00 Lorazepam (Ativan) 0.5 mg DAILYWLUN PO Last administered on 05/28/18 12:11; Start 05/25/18 at 12:00 Lorazepam (Ativan) 0.5 mg PRN Q6HRS PRN PO ANXIETY / AGITATION Last administered on 05/28/18 16:00; Start 05/24/18 at 14:30 Magnesium Hydroxide (Milk Of Magnesia) 2,400 mg PRN QHS PRN PO CONSTIPATION Last administered on 05/28/18 12:11; Start 05/24/18 at 14:30 Olanzapine (ZyPREXA ZYDIS) 2.5 mg PRN Q6HRS PRN PO ANXIETY / AGITATION Last administered on 05/28/18 15:11; Start 05/24/18 at 14:45 Non-Formulary Medication (Propafenone Hcl ) 150 mg TID PO ; Start 05/24/18 at 14 :00; Stop 05/24/18 at 14:37; Status DC Risperidone (RisperDAL) 0.5 mg PRN Q12HR PRN PO ANXIETY / AGITATION; Start at 14:45; Stop 05/25/18 at 21:57; Status DC Trazodone HCl (Desyrel) 50 mg PRN QHS PRN PO INSOMNIA; Start 05/24/18 at 14:45 Multi-Ingredient Ointment (Analgesic [place]) 1 norbert PRN QID PRN TP MUSCLE PAIN; Start 05/24/18 at 14:15 Propafenone HCl (Rythmol) 150 mg TID PO ; Start 05/24/18 at 21:00; Status Cancel Propafenone HCl (Rythmol) 150 mg TID PO Last administered on 05/28/18 20:05; Start 05/24/18 at 15:00 Levothyroxine Sodium (Synthroid) 100 mcg 0600 PO Last administered on at 05:17; Start 05/26/18 at 06:00 Vitamin D (Vitamin D3) 50,000 unit WEEKLY PO ; Start 05/25/18 at 18:15; Stop at 18:36; Status DC Vitamin D (Vitamin D3) 50,000 unit WEEKLY PO Last administered on 05/26/18at 07: 51; Start 05/26/18 at 09:00 Sertraline HCl (Zoloft) 25 mg DAILY PO Last administered on 05/28/18at 07:59; Start 05/26/18 at 09:00; Stop 05/29/18 at 08:59 Sertraline HCl (Zoloft) 50 mg DAILY PO ; Start 05/29/18 at 09:00 Donepezil HCl (Aricept) 10 mg QHS PO Last administered on 05/28/18at 20:04; Start 05/27/18 at 21:00 Amoxicillin/ Clavulanate Potassium (Augmentin 500/ 125mg) 1 tab BID PO Last administered on 05/28/18at 20:08; Start 05/28/18 at 21:00; Stop 06/04/18 at 20:59 Active Scripts Active Reported Acetaminophen 500 Mg Tablet 1,000 Mg PO PRN Q6HRS PRN Lorazepam 0.5 Mg Tablet 0.5 Mg PO PRN Q6HRS PRN Dulcolax (Bisacodyl) 10 Mg Supp.rect 10 Mg RC PRN DAILY PRN Maalox Maximum Strength Susp (Mag Hydrox/Al Hydrox/Simeth) 355 Ml Oral.susp 20 Ml PO PRN Q4HRS PRN Propafenone Hcl 150 Mg Tablet 150 Mg PO TID Myrbetriq (Mirabegron) 25 Mg Tab.er.24h 25 Mg PO DAILY Trazodone Hcl 50 Mg Tablet 50 Mg PO PRN QHS PRN Tramadol Hcl (Tramadol HCl) 50 Mg Tablet 50 Mg PO PRN Q8HRS PRN Risperdal (Risperidone) 0.5 Mg Tablet 0.5 Mg PO PRN Q12HR PRN Olanzapine 5 Mg Tablet 2.5 Mg PO PRN Q6HRS PRN Milk Of Magnesia (Magnesium Hydroxide) 2,400 Mg/10 Ml Oral.susp 2,400 Mg PO PRN QHS PRN Tylenol (Acetaminophen) 325 Mg Tablet 650 Mg PO BID Lorazepam 0.5 Mg Tablet 0.5 Mg PO DAILYWLUN Levothyroxine Sodium 100 Mcg Tablet 100 Mcg PO DAILYAC Levetiracetam 500 Mg Tablet 500 Mg PO BID Gabapentin (Gabapentin) 100 Mg Capsule 200 Mg PO TID Eliquis (Apixaban) 5 Mg Tablet 5 Mg PO BID Donepezil Hcl 5 Mg Tablet 5 Mg PO HS Calcium 500 + Vit D 400 Tablet (Calcium Carbonate/Vitamin D3) 1 Each Tablet 1 Each PO DAILY I have reviewed the current psychotropics carefully including drug interactions. Risk benefit ratio favors no change other than as noted in my dictated progress note. Diagnosis: Problems: (1) Anxiety disorder (2) Dementia, vascular, with delusions (3) Dementia, vascular, with depression (4) Dementia in Alzheimer's disease with delusions (5) Dementia in Alzheimer's disease with depression (6) Impulse control disorder VIKI VALLE MD May 28, 2018 22:44
[2018-05-29 05:55] VITALS: BP 143/84
[2018-05-29] MEDS: LEVOTHYROXINE 100 MCG TABLET PO SCH (06:12)
[2018-05-29] MEDS: levETIRAcetam 500 MG TABLET PO SCH ×2 (07:53→19:33)
[2018-05-29] MEDS: AMOXICILLIN/K CLAV 500/125MG TABLET. PO SCH ×2 (07:53→19:32)
[2018-05-29] MEDS: CALCIUM CARB/VIT D3 500/200 TABLET PO SCH (07:53)
[2018-05-29] MEDS: APIXABAN 5 MG TABLET. PO SCH ×2 (07:53→19:33)
[2018-05-29] MEDS: ACETAMINOPHEN 325 MG TABLET PO SCH ×2 (07:53→19:32)
[2018-05-29] MEDS: GABAPENTIN 100 MG CAPSULE. PO SCH ×3 (07:54→19:33)
[2018-05-29] MEDS: PROPAFENONE 150 MG TABLET. PO SCH ×3 (07:58→19:33)
[2018-05-29] MEDS: SERTRALINE 50 MG TABLET. PO SCH (07:58)
[2018-05-29] MEDS: MIRABEGRON 25 MG TAB.ER.24H PO SCH (07:59)
[2018-05-29] MEDS: LACTOBACILLUS RHAMNOSUS GG 1 CAPSULE. PO SCH ×2 (09:00→19:33)
[2018-05-29] MEDS: LORazepam 0.5 MG TABLET PO SCH (13:06)
--- NOTE | 2018-05-29 15:43 | PN ---
DATE: 05/27/2018 PSYCHIATRIC PROGRESS NOTE This late entry 05/27/2018 covers elements not covered in my initial note. SUBJECTIVE: I met with the patient in the evening in her room. The patient slept 7-3/4 hours previous night. She has been confused, otherwise pleasant, hard of hearing. Ambulation impaired with walker. The patient is compliant with her psychotropics, agitated at times, wandering. Appetite is fair. REVIEW OF SYSTEMS: No CV, , pulmonary, eye, ENT system symptoms on review. Reliability poor other than being hard of hearing. MENTAL STATUS EXAM: Oriented to herself. Insight, judgment, recent and remote memory, attention, concentration, fund of knowledge poor, consistent with her diagnosis mentioned in my initial note. PLAN: No change from initial note, but we will increase the Aricept from 5 mg a day to 10 mg a day. Rest unchanged. MAN Eddi VALLE MD DR: SPIKE/stefano JOB#: [id number] / [id number]
--- NOTE | 2018-05-29 16:04 | PN ---
DATE: 05/28/2018 PSYCHIATRIC PROGRESS NOTE This late entry 05/28/2018 covers elements not covered in my initial note. SUBJECTIVE: I met with the patient in the evening and staffed at a treatment team meeting with the entire team in the morning. The patient's appetite is 50%, slept 7 hours. She does have a urinary tract infection. We will defer to Dr. Mejia for treatment. REVIEW OF SYSTEMS: No CV, , pulmonary, eye, ENT system symptoms on review. Reliability poor. MENTAL STATUS EXAM: Oriented to herself. Insight, judgment, recent and remote memory, attention, concentration, fund of knowledge poor, consistent with her diagnosis. She is quite hard of hearing. She received Zyprexa and Ativan at 3:15 and 4:30 p.m., was agitated, pulling on the curtains, paranoid, believes someone is killing her . MENTAL STATUS EXAM: Oriented to herself. Insight, judgment, recent and remote memory, attention, concentration, fund of knowledge poor, consistent with her diagnosis. IMPRESSION: Major neurocognitive disorder, Alzheimer, vascular with delusion, depression, behavioral disturbance, urinary tract infection; anxiety disorder, unspecified; impulse control disorder, unspecified. PLAN: Continue psychotropics from initial note. Treat the UTI, Zoloft 50 mg a day. Rest unchanged. MAN Eddi VALLE MD DR: SPIKE/stefano JOB#: [id number] / [id number]
[2018-05-29 16:33] VITALS: BP 195/71
[2018-05-29] MEDS: DONEPEZIL HCL 10 MG TABLET PO SCH (19:33)
--- NOTE | 2018-05-29 22:34 | PDOC ---
Exam Note: Christopher Note: Please also refer to the separate dictated note~for this date of service dictated separately.~Patient seen individually. Discussed the patient with Nursing staff reviewed the chart.~Reviewed interim history and current functioning. Reviewed vital signs,~Labs/ Radiology~and current medications noted below. Continue current treatment with the changes noted in the dictated addendum note Assessment: Vital Signs: Vital Signs Date Time Temp Pulse Resp B/P (MAP) Pulse Ox O2 Delivery O2 Flow Rate FiO2 05/29/18 19:33 75 195/71 05/29/18 16:33 97.5 20 96 Room Air I&O Intake and Output 05/29/18 07:01 Intake Total 800 ml Balance 800 ml Intake Oral 800 ml # Voids 1 Current Medications: Meds: Current Medications Acetaminophen (Tylenol) 650 mg BID PO Last administered on 05/29/18at 19:32; Start 05/24/18 at 21:00 Gabapentin (Neurontin) 200 mg TID PO Last administered on 05/29/18at 19:33; Start 05/24/18 at 14:30 Levothyroxine Sodium (Synthroid) 100 mcg DAILYAC PO Last administered on at 07:56; Start 05/25/18 at 07:30; Stop 05/25/18 at 07:59; Status DC Al Hydroxide/Mg Hydroxide (Mylanta Plus Xs) 20 ml PRN Q4HRS PRN PO DYSPEPSIA; Start 05/24/18 at 13:45 Mirabegron (Myrbetriq) 25 mg DAILY PO Last administered on 05/29/18at 07:59; Start 05/25/18 at 09:00 Tramadol HCl (Ultram) 50 mg PRN Q8HRS PRN PO PAIN; Start 05/24/18 at 13:45 Acetaminophen (Tylenol) 1,000 mg PRN Q6HRS PRN PO PAIN / TEMP; Start 05/24/18 at 14:30 Apixaban (Eliquis) 5 mg BID PO Last administered on 05/29/18at 19:33; Start at 21:00 Bisacodyl (Dulcolax Supp) 10 mg PRN DAILY PRN [place] CONSTIPATION; Start 05/24/18 at 14:30 Calcium/Vitamin D (Oscal D 500mg/ 200uts) 1 tab DAILY PO Last administered on 07:53; Start 05/25/18 at 09:00 Donepezil HCl (Aricept) 5 mg HS PO Last administered on 05/26/18 20:09; Start 05/24/18 at 21:00; Stop 05/27/18 at 18:19; Status DC Levetiracetam (Keppra) 500 mg BID PO Last administered on 05/29/18 19:33; Start 05/24/18 at 21:00 Lorazepam (Ativan) 0.5 mg DAILYWLUN PO Last administered on 05/29/18 13:06; Start 05/25/18 at 12:00 Lorazepam (Ativan) 0.5 mg PRN Q6HRS PRN PO ANXIETY / AGITATION Last administered on 05/28/18 16:00; Start 05/24/18 at 14:30 Magnesium Hydroxide (Milk Of Magnesia) 2,400 mg PRN QHS PRN PO CONSTIPATION Last administered on 05/28/18 12:11; Start 05/24/18 at 14:30 Olanzapine (ZyPREXA ZYDIS) 2.5 mg PRN Q6HRS PRN PO ANXIETY / AGITATION Last administered on 05/28/18 15:11; Start 05/24/18 at 14:45 Non-Formulary Medication (Propafenone Hcl ) 150 mg TID PO ; Start 05/24/18 at 14 :00; Stop 05/24/18 at 14:37; Status DC Risperidone (RisperDAL) 0.5 mg PRN Q12HR PRN PO ANXIETY / AGITATION; Start at 14:45; Stop 05/25/18 at 21:57; Status DC Trazodone HCl (Desyrel) 50 mg PRN QHS PRN PO INSOMNIA; Start 05/24/18 at 14:45 Multi-Ingredient Ointment (Analgesic [place]) 1 norbert PRN QID PRN TP MUSCLE PAIN; Start 05/24/18 at 14:15 Propafenone HCl (Rythmol) 150 mg TID PO ; Start 05/24/18 at 21:00; Status Cancel Propafenone HCl (Rythmol) 150 mg TID PO Last administered on 05/29/18 19:33; Start 05/24/18 at 15:00 Levothyroxine Sodium (Synthroid) 100 mcg 0600 PO Last administered on at 06:12; Start 05/26/18 at 06:00 Vitamin D (Vitamin D3) 50,000 unit WEEKLY PO ; Start 05/25/18 at 18:15; Stop at 18:36; Status DC Vitamin D (Vitamin D3) 50,000 unit WEEKLY PO Last administered on 05/26/18at 07: 51; Start 05/26/18 at 09:00 Sertraline HCl (Zoloft) 25 mg DAILY PO Last administered on 05/28/18at 07:59; Start 05/26/18 at 09:00; Stop 05/29/18 at 08:59; Status DC Sertraline HCl (Zoloft) 50 mg DAILY PO Last administered on 05/29/18at 07:58; Start 05/29/18 at 09:00 Donepezil HCl (Aricept) 10 mg QHS PO Last administered on 05/29/18at 19:33; Start 05/27/18 at 21:00 Amoxicillin/ Clavulanate Potassium (Augmentin 500/ 125mg) 1 tab BID PO Last administered on 05/29/18at 19:32; Start 05/28/18 at 21:00; Stop 06/04/18 at 20:59 Lactobacillus Rhamnosus (Culturelle) 1 cap BID PO Last administered on at 19:33; Start 05/29/18 at 09:00 Active Scripts Active Reported Acetaminophen 500 Mg Tablet 1,000 Mg PO PRN Q6HRS PRN Lorazepam 0.5 Mg Tablet 0.5 Mg PO PRN Q6HRS PRN Dulcolax (Bisacodyl) 10 Mg Supp.rect 10 Mg RC PRN DAILY PRN Maalox Maximum Strength Susp (Mag Hydrox/Al Hydrox/Simeth) 355 Ml Oral.susp 20 Ml PO PRN Q4HRS PRN Propafenone Hcl 150 Mg Tablet 150 Mg PO TID Myrbetriq (Mirabegron) 25 Mg Tab.er.24h 25 Mg PO DAILY Trazodone Hcl 50 Mg Tablet 50 Mg PO PRN QHS PRN Tramadol Hcl (Tramadol HCl) 50 Mg Tablet 50 Mg PO PRN Q8HRS PRN Risperdal (Risperidone) 0.5 Mg Tablet 0.5 Mg PO PRN Q12HR PRN Olanzapine 5 Mg Tablet 2.5 Mg PO PRN Q6HRS PRN Milk Of Magnesia (Magnesium Hydroxide) 2,400 Mg/10 Ml Oral.susp 2,400 Mg PO PRN QHS PRN Tylenol (Acetaminophen) 325 Mg Tablet 650 Mg PO BID Lorazepam 0.5 Mg Tablet 0.5 Mg PO DAILYWLUN Levothyroxine Sodium 100 Mcg Tablet 100 Mcg PO DAILYAC Levetiracetam 500 Mg Tablet 500 Mg PO BID Gabapentin (Gabapentin) 100 Mg Capsule 200 Mg PO TID Eliquis (Apixaban) 5 Mg Tablet 5 Mg PO BID Donepezil Hcl 5 Mg Tablet 5 Mg PO HS Calcium 500 + Vit D 400 Tablet (Calcium Carbonate/Vitamin D3) 1 Each Tablet 1 Each PO DAILY I have reviewed the current psychotropics carefully including drug interactions. Risk benefit ratio favors no change other than as noted in my dictated progress note. Diagnosis: Problems: (1) Anxiety disorder (2) Dementia, vascular, with delusions (3) Dementia, vascular, with depression (4) Dementia in Alzheimer's disease with delusions (5) Dementia in Alzheimer's disease with depression (6) Impulse control disorder VIKI VALLE MD May 29, 2018 22:34
[2018-05-30] MEDS: LEVOTHYROXINE 100 MCG TABLET PO SCH (05:02)
[2018-05-30 06:23] VITALS: BP 131/72
[2018-05-30 07:04] LABS: BASO % 0 % (0-3); EOS # 0.2 x10^3/uL (0.0-0.7); EOS % 3 % (0-3); HEMATOCRIT 36.2 % (36.0-47.0); HEMOGLOBIN 12.3 g/dL (12.0-15.5); LYMPH # 1.1 x10^3/uL (1.0-4.8); LYMPH % 19 % (24-48); MEAN CORPUSCULAR HEMOGLOBIN 32 pg (25-35); MEAN CORPUSCULAR HGB CONC 34 g/dL (31-37); MEAN CORPUSCULAR VOLUME 95 fL (79-100); MONO # 0.4 x10^3/uL (0.0-1.1); MONO % 7 % (0-9); NEUT # 4.1 x10^3uL (1.8-7.7); NEUT % 70 % (31-73); PLATELET COUNT 216 x10^3/uL (140-400); RED BLOOD COUNT 3.81 x10^6/uL (3.50-5.40); RED CELL DISTRIBUTION WIDTH 13.1 % (11.5-14.5); WHITE BLOOD COUNT 5.8 x10^3/uL (4.0-11.0)
[2018-05-30 07:17] LABS: ALBUMIN 3.3 g/dL (3.4-5.0); ALBUMIN/GLOBULIN RATIO 0.9 (1.0-1.7); CALCIUM 8.6 mg/dL (8.5-10.1); CREATININE 1.3 mg/dL (0.6-1.0); GFR 39.5; TOTAL BILIRUBIN 0.4 mg/dL (0.2-1.0); TOTAL PROTEIN 6.9 g/dL (6.4-8.2)
[2018-05-30] MEDS: GABAPENTIN 100 MG CAPSULE. PO SCH ×3 (07:26→19:54)
[2018-05-30] MEDS: AMOXICILLIN/K CLAV 500/125MG TABLET. PO SCH ×2 (07:27→19:53)
[2018-05-30] MEDS: APIXABAN 5 MG TABLET. PO SCH ×2 (07:27→19:53)
[2018-05-30] MEDS: CALCIUM CARB/VIT D3 500/200 TABLET PO SCH (07:27)
[2018-05-30] MEDS: ACETAMINOPHEN 325 MG TABLET PO SCH ×2 (07:27→19:54)
[2018-05-30] MEDS: SERTRALINE 50 MG TABLET. PO SCH (07:27)
[2018-05-30] MEDS: LACTOBACILLUS RHAMNOSUS GG 1 CAPSULE. PO SCH ×2 (07:27→19:53)
[2018-05-30] MEDS: levETIRAcetam 500 MG TABLET PO SCH ×2 (07:28→19:54)
[2018-05-30] MEDS: MIRABEGRON 25 MG TAB.ER.24H PO SCH (07:29)
[2018-05-30] MEDS: PROPAFENONE 150 MG TABLET. PO SCH ×3 (07:30→20:03)
[2018-05-30] MEDS: LORazepam 0.5 MG TABLET PO SCH (12:47)
[2018-05-30 15:44] VITALS: BP 113/81
[2018-05-30] MEDS: DONEPEZIL HCL 10 MG TABLET PO SCH (19:54)
[2018-05-30 20:02] VITALS: BP 129/69
--- NOTE | 2018-05-30 22:13 | PDOC ---
Exam Note: Christopher Note: Please also refer to the separate dictated note~for this date of service dictated separately.~Patient seen individually. Discussed the patient with Nursing staff reviewed the chart.~Reviewed interim history and current functioning. Reviewed vital signs,~Labs/ Radiology~and current medications noted below. Continue current treatment with the changes noted in the dictated addendum note Assessment: Vital Signs: Vital Signs Date Time Temp Pulse Resp B/P (MAP) Pulse Ox O2 Delivery O2 Flow Rate FiO2 05/30/18 20:03 68 129/69 05/30/18 15:44 98.5 18 95 05/29/18 16:33 Room Air I&O Intake and Output 05/30/18 07:01 Intake Total 840 ml Balance 840 ml Intake Oral 840 ml Labs: Laboratory Tests Test 05/30/18 06:45 White Blood Count 5.8 x10^3/uL (4.0-11.0) Red Blood Count 3.81 x10^6/uL (3.50-5.40) Hemoglobin 12.3 g/dL (12.0-15.5) Hematocrit 36.2 % (36.0-47.0) Mean Corpuscular Volume 95 fL (79-100) Mean Corpuscular Hemoglobin 32 pg (25-35) Mean Corpuscular Hemoglobin Concent 34 g/dL (31-37) Red Cell Distribution Width 13.1 % (11.5-14.5) Platelet Count 216 x10^3/uL (140-400) Neutrophils (%) (Auto) 70 % (31-73) Lymphocytes (%) (Auto) 19 % (24-48) L Monocytes (%) (Auto) 7 % (0-9) Eosinophils (%) (Auto) 3 % (0-3) Basophils (%) (Auto) 0 % (0-3) Neutrophils # (Auto) 4.1 x10^3uL (1.8-7.7) Lymphocytes # (Auto) 1.1 x10^3/uL (1.0-4.8) Monocytes # (Auto) 0.4 x10^3/uL (0.0-1.1) Eosinophils # (Auto) 0.2 x10^3/uL (0.0-0.7) Basophils # (Auto) 0.0 x10^3/uL (0.0-0.2) Sodium Level 142 mmol/L (136-145) Potassium Level 4.0 mmol/L (3.5-5.1) Chloride Level 107 mmol/L (98-107) Carbon Dioxide Level 27 mmol/L (21-32) Anion Gap 8 (6-14) Blood Urea Nitrogen 23 mg/dL (7-20) H Creatinine 1.3 mg/dL (0.6-1.0) H Estimated GFR (Cockcroft-Gault) 39.5 BUN/Creatinine Ratio 18 (6-20) Glucose Level 99 mg/dL (70-99) Calcium Level 8.6 mg/dL (8.5-10.1) Total Bilirubin 0.4 mg/dL (0.2-1.0) Aspartate Amino Transferase (AST) 31 U/L (15-37) Alanine Aminotransferase (ALT) 22 U/L (14-59) Alkaline Phosphatase 73 U/L (46-116) Total Protein 6.9 g/dL (6.4-8.2) Albumin 3.3 g/dL (3.4-5.0) L Albumin/Globulin Ratio 0.9 (1.0-1.7) L Current Medications: Meds: Current Medications Acetaminophen (Tylenol) 650 mg BID PO Last administered on 05/30/18 19:54; Start 05/24/18 at 21:00 Gabapentin (Neurontin) 200 mg TID PO Last administered on 05/30/18at 19:54; Start 05/24/18 at 14:30 Levothyroxine Sodium (Synthroid) 100 mcg DAILYAC PO Last administered on at 07:56; Start 05/25/18 at 07:30; Stop 05/25/18 at 07:59; Status DC Al Hydroxide/Mg Hydroxide (Mylanta Plus Xs) 20 ml PRN Q4HRS PRN PO DYSPEPSIA; Start 05/24/18 at 13:45 Mirabegron (Myrbetriq) 25 mg DAILY PO Last administered on 05/30/18at 07:29; Start 05/25/18 at 09:00 Tramadol HCl (Ultram) 50 mg PRN Q8HRS PRN PO PAIN; Start 05/24/18 at 13:45 Acetaminophen (Tylenol) 1,000 mg PRN Q6HRS PRN PO PAIN / TEMP; Start 05/24/18 at 14:30 Apixaban (Eliquis) 5 mg BID PO Last administered on 05/30/18 19:53; Start at 21:00 Bisacodyl (Dulcolax Supp) 10 mg PRN DAILY PRN [place] CONSTIPATION; Start 05/24/18 at 14:30 Calcium/Vitamin D (Oscal D 500mg/ 200uts) 1 tab DAILY PO Last administered on at 07:27; Start 05/25/18 at 09:00 Donepezil HCl (Aricept) 5 mg HS PO Last administered on 05/26/18 20:09; Start 05/24/18 at 21:00; Stop 05/27/18 at 18:19; Status DC Levetiracetam (Keppra) 500 mg BID PO Last administered on 05/30/18 19:54; Start 05/24/18 at 21:00 Lorazepam (Ativan) 0.5 mg DAILYWLUN PO Last administered on 05/30/18at 12:47; Start 05/25/18 at 12:00 Lorazepam (Ativan) 0.5 mg PRN Q6HRS PRN PO ANXIETY / AGITATION Last administered on 05/28/18 16:00; Start 05/24/18 at 14:30 Magnesium Hydroxide (Milk Of Magnesia) 2,400 mg PRN QHS PRN PO CONSTIPATION Last administered on 05/28/18 12:11; Start 05/24/18 at 14:30 Olanzapine (ZyPREXA ZYDIS) 2.5 mg PRN Q6HRS PRN PO ANXIETY / AGITATION Last administered on 05/30/18 09:11; Start 05/24/18 at 14:45 Non-Formulary Medication (Propafenone Hcl ) 150 mg TID PO ; Start 05/24/18 at 14 :00; Stop 05/24/18 at 14:37; Status DC Risperidone (RisperDAL) 0.5 mg PRN Q12HR PRN PO ANXIETY / AGITATION; Start at 14:45; Stop 05/25/18 at 21:57; Status DC Trazodone HCl (Desyrel) 50 mg PRN QHS PRN PO INSOMNIA; Start 05/24/18 at 14:45 Multi-Ingredient Ointment (Analgesic [place]) 1 norbert PRN QID PRN TP MUSCLE PAIN; Start 05/24/18 at 14:15 Propafenone HCl (Rythmol) 150 mg TID PO ; Start 05/24/18 at 21:00; Status Cancel Propafenone HCl (Rythmol) 150 mg TID PO Last administered on 05/30/18at 20:03; Start 05/24/18 at 15:00 Levothyroxine Sodium (Synthroid) 100 mcg 0600 PO Last administered on at 05:02; Start 05/26/18 at 06:00 Vitamin D (Vitamin D3) 50,000 unit WEEKLY PO ; Start 05/25/18 at 18:15; Stop at 18:36; Status DC Vitamin D (Vitamin D3) 50,000 unit WEEKLY PO Last administered on 05/26/18at 07: 51; Start 05/26/18 at 09:00 Sertraline HCl (Zoloft) 25 mg DAILY PO Last administered on 05/28/18at 07:59; Start 05/26/18 at 09:00; Stop 05/29/18 at 08:59; Status DC Sertraline HCl (Zoloft) 50 mg DAILY PO Last administered on 05/30/18at 07:27; Start 05/29/18 at 09:00 Donepezil HCl (Aricept) 10 mg QHS PO Last administered on 05/30/18at 19:54; Start 05/27/18 at 21:00 Amoxicillin/ Clavulanate Potassium (Augmentin 500/ 125mg) 1 tab BID PO Last administered on 05/30/18at 19:53; Start 05/28/18 at 21:00; Stop 06/04/18 at 20:59 Lactobacillus Rhamnosus (Culturelle) 1 cap BID PO Last administered on at 19:53; Start 05/29/18 at 09:00 Active Scripts Active Reported Acetaminophen 500 Mg Tablet 1,000 Mg PO PRN Q6HRS PRN Lorazepam 0.5 Mg Tablet 0.5 Mg PO PRN Q6HRS PRN Dulcolax (Bisacodyl) 10 Mg Supp.rect 10 Mg RC PRN DAILY PRN Maalox Maximum Strength Susp (Mag Hydrox/Al Hydrox/Simeth) 355 Ml Oral.susp 20 Ml PO PRN Q4HRS PRN Propafenone Hcl 150 Mg Tablet 150 Mg PO TID Myrbetriq (Mirabegron) 25 Mg Tab.er.24h 25 Mg PO DAILY Trazodone Hcl 50 Mg Tablet 50 Mg PO PRN QHS PRN Tramadol Hcl (Tramadol HCl) 50 Mg Tablet 50 Mg PO PRN Q8HRS PRN Risperdal (Risperidone) 0.5 Mg Tablet 0.5 Mg PO PRN Q12HR PRN Olanzapine 5 Mg Tablet 2.5 Mg PO PRN Q6HRS PRN Milk Of Magnesia (Magnesium Hydroxide) 2,400 Mg/10 Ml Oral.susp 2,400 Mg PO PRN QHS PRN Tylenol (Acetaminophen) 325 Mg Tablet 650 Mg PO BID Lorazepam 0.5 Mg Tablet 0.5 Mg PO DAILYWLUN Levothyroxine Sodium 100 Mcg Tablet 100 Mcg PO DAILYAC Levetiracetam 500 Mg Tablet 500 Mg PO BID Gabapentin (Gabapentin) 100 Mg Capsule 200 Mg PO TID Eliquis (Apixaban) 5 Mg Tablet 5 Mg PO BID Donepezil Hcl 5 Mg Tablet 5 Mg PO HS Calcium 500 + Vit D 400 Tablet (Calcium Carbonate/Vitamin D3) 1 Each Tablet 1 Each PO DAILY I have reviewed the current psychotropics carefully including drug interactions. Risk benefit ratio favors no change other than as noted in my dictated progress note. Diagnosis: Problems: (1) Anxiety disorder (2) Dementia, vascular, with delusions (3) Dementia, vascular, with depression (4) Dementia in Alzheimer's disease with delusions (5) Dementia in Alzheimer's disease with depression (6) Impulse control disorder VIKI VALLE MD May 30, 2018 22:12
--- NOTE | 2018-05-31 01:26 | PN ---
DATE: 05/29/2018 PSYCHIATRIC PROGRESS NOTE This is a late entry of 05/29/2018, covers elements not covered in my initial note. SUBJECTIVE: I met with the patient in the evening. The patient slept 10 hours previous evening. She remains confused, withdrawn, does have a UTI and started on Augmentin. She gets a little anxious at times. REVIEW OF SYSTEMS: Extremely hard of hearing. No CV, , pulmonary, eye system symptoms on review. MENTAL STATUS EXAM: Oriented to herself. Insight, judgment, recent and remote memory, attention, concentration, fund of knowledge poor, consistent with her diagnosis mentioned in my initial note. PLAN: No change from initial note. Treat the UTI and then decide thereafter. She remains intermittently paranoid, suspicious about different things, pulling on the curtains, believes someone is killing her . MAN Eddi VALLE MD DR: SPIKE/stefano JOB#: [id number] / [id number]
[2018-05-31 05:49] VITALS: BP 119/76
[2018-05-31] MEDS: LEVOTHYROXINE 100 MCG TABLET PO SCH (06:02)
[2018-05-31] MEDS: SERTRALINE 50 MG TABLET. PO SCH (07:37)
[2018-05-31] MEDS: levETIRAcetam 500 MG TABLET PO SCH ×2 (07:37→21:27)
[2018-05-31] MEDS: MIRABEGRON 25 MG TAB.ER.24H PO SCH (07:38)
[2018-05-31] MEDS: CALCIUM CARB/VIT D3 500/200 TABLET PO SCH (07:38)
[2018-05-31] MEDS: AMOXICILLIN/K CLAV 500/125MG TABLET. PO SCH ×2 (07:38→21:27)
[2018-05-31] MEDS: PROPAFENONE 150 MG TABLET. PO SCH ×3 (07:38→21:27)
[2018-05-31] MEDS: APIXABAN 5 MG TABLET. PO SCH ×2 (07:38→21:27)
[2018-05-31] MEDS: ACETAMINOPHEN 325 MG TABLET PO SCH ×2 (07:38→21:27)
[2018-05-31] MEDS: LACTOBACILLUS RHAMNOSUS GG 1 CAPSULE. PO SCH ×2 (07:38→21:27)
[2018-05-31] MEDS: GABAPENTIN 100 MG CAPSULE. PO SCH ×3 (07:38→21:27)
[2018-05-31] MEDS: LORazepam 0.5 MG TABLET PO SCH (13:34)
[2018-05-31 16:07] VITALS: BP 132/69
[2018-05-31] MEDS ORDERED: CARBIDOPA/LEVODOPA CR 25/100MG TABLET.SA PO SCH (21:00)
[2018-05-31] MEDS: DONEPEZIL HCL 10 MG TABLET PO SCH (21:27)
--- NOTE | 2018-05-31 22:51 | PDOC ---
Exam Note: Christopher Note: Please also refer to the separate dictated note~for this date of service dictated separately.~Patient seen individually. Discussed the patient with Nursing staff reviewed the chart.~Reviewed interim history and current functioning. Reviewed vital signs,~Labs/ Radiology~and current medications noted below. Continue current treatment with the changes noted in the dictated addendum note Assessment: Vital Signs: Vital Signs Date Time Temp Pulse Resp B/P (MAP) Pulse Ox O2 Delivery O2 Flow Rate FiO2 05/31/18 21:27 67 132/69 05/31/18 16:07 98.7 18 95 05/29/18 16:33 Room Air I&O Intake and Output 05/31/18 07:01 Intake Total 720 ml Balance 720 ml Intake Oral 720 ml Current Medications: Meds: Current Medications Acetaminophen (Tylenol) 650 mg BID PO Last administered on 05/31/18at 21:27; Start 05/24/18 at 21:00 Gabapentin (Neurontin) 200 mg TID PO Last administered on 05/31/18at 21:27; Start 05/24/18 at 14:30 Levothyroxine Sodium (Synthroid) 100 mcg DAILYAC PO Last administered on at 07:56; Start 05/25/18 at 07:30; Stop 05/25/18 at 07:59; Status DC Al Hydroxide/Mg Hydroxide (Mylanta Plus Xs) 20 ml PRN Q4HRS PRN PO DYSPEPSIA; Start 05/24/18 at 13:45 Mirabegron (Myrbetriq) 25 mg DAILY PO Last administered on 05/31/18at 07:38; Start 05/25/18 at 09:00 Tramadol HCl (Ultram) 50 mg PRN Q8HRS PRN PO PAIN; Start 05/24/18 at 13:45 Acetaminophen (Tylenol) 1,000 mg PRN Q6HRS PRN PO PAIN / TEMP; Start 05/24/18 at 14:30 Apixaban (Eliquis) 5 mg BID PO Last administered on 05/31/18at 21:27; Start at 21:00 Bisacodyl (Dulcolax Supp) 10 mg PRN DAILY PRN [place] CONSTIPATION; Start 05/24/18 at 14:30 Calcium/Vitamin D (Oscal D 500mg/ 200uts) 1 tab DAILY PO Last administered on 07:38; Start 05/25/18 at 09:00 Donepezil HCl (Aricept) 5 mg HS PO Last administered on 05/26/18at 20:09; Start 05/24/18 at 21:00; Stop 05/27/18 at 18:19; Status DC Levetiracetam (Keppra) 500 mg BID PO Last administered on 05/31/18at 21:27; Start 05/24/18 at 21:00 Lorazepam (Ativan) 0.5 mg DAILYWLUN PO Last administered on 05/31/18 13:34; Start 05/25/18 at 12:00 Lorazepam (Ativan) 0.5 mg PRN Q6HRS PRN PO ANXIETY / AGITATION Last administered on 05/28/18 16:00; Start 05/24/18 at 14:30 Magnesium Hydroxide (Milk Of Magnesia) 2,400 mg PRN QHS PRN PO CONSTIPATION Last administered on 05/28/18 12:11; Start 05/24/18 at 14:30 Olanzapine (ZyPREXA ZYDIS) 2.5 mg PRN Q6HRS PRN PO ANXIETY / AGITATION Last administered on 05/31/18 18:07; Start 05/24/18 at 14:45; Stop 05/31/18 at 20:27 ; Status DC Non-Formulary Medication (Propafenone Hcl ) 150 mg TID PO ; Start 05/24/18 at 14 :00; Stop 05/24/18 at 14:37; Status DC Risperidone (RisperDAL) 0.5 mg PRN Q12HR PRN PO ANXIETY / AGITATION; Start at 14:45; Stop 05/25/18 at 21:57; Status DC Trazodone HCl (Desyrel) 50 mg PRN QHS PRN PO INSOMNIA; Start 05/24/18 at 14:45 Multi-Ingredient Ointment (Analgesic [place]) 1 norbert PRN QID PRN TP MUSCLE PAIN; Start 05/24/18 at 14:15 Propafenone HCl (Rythmol) 150 mg TID PO ; Start 05/24/18 at 21:00; Status Cancel Propafenone HCl (Rythmol) 150 mg TID PO Last administered on 05/31/18 21:27; Start 05/24/18 at 15:00 Levothyroxine Sodium (Synthroid) 100 mcg 0600 PO Last administered on at 06:02; Start 05/26/18 at 06:00 Vitamin D (Vitamin D3) 50,000 unit WEEKLY PO ; Start 05/25/18 at 18:15; Stop at 18:36; Status DC Vitamin D (Vitamin D3) 50,000 unit WEEKLY PO Last administered on 05/26/18at 07: 51; Start 05/26/18 at 09:00 Sertraline HCl (Zoloft) 25 mg DAILY PO Last administered on 05/28/18 07:59; Start 05/26/18 at 09:00; Stop 05/29/18 at 08:59; Status DC Sertraline HCl (Zoloft) 50 mg DAILY PO Last administered on 05/31/18at 07:37; Start 05/29/18 at 09:00 Donepezil HCl (Aricept) 10 mg QHS PO Last administered on 05/31/18at 21:27; Start 05/27/18 at 21:00 Amoxicillin/ Clavulanate Potassium (Augmentin 500/ 125mg) 1 tab BID PO Last administered on 05/31/18at 21:27; Start 05/28/18 at 21:00; Stop 06/04/18 at 20:59 Lactobacillus Rhamnosus (Culturelle) 1 cap BID PO Last administered on at 21:27; Start 05/29/18 at 09:00 Carbidopa/Levodopa (Sinemet Cr) 1 tab.sa TID PO ; Start 05/31/18 at 21:00; Stop 05/31/18 at 21:00; Status DC Olanzapine (ZyPREXA ZYDIS) 2.5 mg PRN Q2HR PRN PO ANXIETY / AGITATION; Start at 20:30 Olanzapine (ZyPREXA ZYDIS) 5 mg 1X ONCE PO Last administered on 05/31/18at 20: 36; Start 05/31/18 at 20:30; Stop 05/31/18 at 20:34; Status DC Active Scripts Active Reported Acetaminophen 500 Mg Tablet 1,000 Mg PO PRN Q6HRS PRN Lorazepam 0.5 Mg Tablet 0.5 Mg PO PRN Q6HRS PRN Dulcolax (Bisacodyl) 10 Mg Supp.rect 10 Mg RC PRN DAILY PRN Maalox Maximum Strength Susp (Mag Hydrox/Al Hydrox/Simeth) 355 Ml Oral.susp 20 Ml PO PRN Q4HRS PRN Propafenone Hcl 150 Mg Tablet 150 Mg PO TID Myrbetriq (Mirabegron) 25 Mg Tab.er.24h 25 Mg PO DAILY Trazodone Hcl 50 Mg Tablet 50 Mg PO PRN QHS PRN Tramadol Hcl (Tramadol HCl) 50 Mg Tablet 50 Mg PO PRN Q8HRS PRN Risperdal (Risperidone) 0.5 Mg Tablet 0.5 Mg PO PRN Q12HR PRN Olanzapine 5 Mg Tablet 2.5 Mg PO PRN Q6HRS PRN Milk Of Magnesia (Magnesium Hydroxide) 2,400 Mg/10 Ml Oral.susp 2,400 Mg PO PRN QHS PRN Tylenol (Acetaminophen) 325 Mg Tablet 650 Mg PO BID Lorazepam 0.5 Mg Tablet 0.5 Mg PO DAILYWLUN Levothyroxine Sodium 100 Mcg Tablet 100 Mcg PO DAILYAC Levetiracetam 500 Mg Tablet 500 Mg PO BID Gabapentin (Gabapentin) 100 Mg Capsule 200 Mg PO TID Eliquis (Apixaban) 5 Mg Tablet 5 Mg PO BID Donepezil Hcl 5 Mg Tablet 5 Mg PO HS Calcium 500 + Vit D 400 Tablet (Calcium Carbonate/Vitamin D3) 1 Each Tablet 1 Each PO DAILY I have reviewed the current psychotropics carefully including drug interactions. Risk benefit ratio favors no change other than as noted in my dictated progress note. Diagnosis: Problems: (1) Anxiety disorder (2) Dementia, vascular, with delusions (3) Dementia, vascular, with depression (4) Dementia in Alzheimer's disease with delusions (5) Dementia in Alzheimer's disease with depression (6) Impulse control disorder VIKI VALLE MD May 31, 2018 22:51
[2018-06-01 05:42] VITALS: BP 106/61
[2018-06-01] MEDS: LEVOTHYROXINE 100 MCG TABLET PO SCH (05:46)
[2018-06-01] MEDS: CALCIUM CARB/VIT D3 500/200 TABLET PO SCH (07:43)
[2018-06-01] MEDS: levETIRAcetam 500 MG TABLET PO SCH ×2 (07:43→19:43)
[2018-06-01] MEDS: SERTRALINE 50 MG TABLET. PO SCH (07:43)
[2018-06-01] MEDS: ACETAMINOPHEN 325 MG TABLET PO SCH ×2 (07:43→19:43)
[2018-06-01] MEDS: APIXABAN 5 MG TABLET. PO SCH ×2 (07:43→19:41)
[2018-06-01] MEDS: LACTOBACILLUS RHAMNOSUS GG 1 CAPSULE. PO SCH ×2 (07:44→19:43)
[2018-06-01] MEDS: AMOXICILLIN/K CLAV 500/125MG TABLET. PO SCH ×2 (07:44→19:43)
[2018-06-01] MEDS: GABAPENTIN 100 MG CAPSULE. PO SCH ×3 (07:45→19:43)
[2018-06-01] MEDS: MIRABEGRON 25 MG TAB.ER.24H PO SCH (07:45)
[2018-06-01] MEDS: PROPAFENONE 150 MG TABLET. PO SCH ×3 (07:46→19:48)
--- NOTE | 2018-06-01 08:22 | PN ---
DATE: 05/31/2018 This note covers elements not covered in my initial note. SUBJECTIVE: I met with the patient in the evening. The patient slept 8-3/4 hours previous night. She remains confused, withdrawn, did alright till about dinnertime and since then she has been extremely paranoid. She tried to flip over an overweight chair and has been banging on the doors, agitated, aggressive, disruptive, yelling, screaming, totally unmanageable. She has received Zyprexa p.r.n., extremely paranoid, believes the nursing staff has stolen her shoes. REVIEW OF SYSTEMS: Hard of hearing. No CV, , pulmonary, eye system symptoms on review. Reliability poor. As I met with her, she is convinced that someone is trying to kill her . MENTAL STATUS EXAM: Oriented to herself. Insight, judgment, recent and remote memory, attention, concentration, fund of knowledge poor, consistent with her diagnoses. IMPRESSION: Major neurocognitive disorder, Alzheimer, vascular with delusion, depression, behavioral disturbance. Rest unchanged. PLAN: No change from initial note. She does have a UTI and is on Augmentin and as this resolves, I feel the agitation will improve as well, but we will increase her Zyprexa p.r.n. with respect to frequency to help temporarily. MAN Eddi VALLE MD DR: SPIKE/stefano JOB#: [id number] / [id number]
[2018-06-01] MEDS: LORazepam 0.5 MG TABLET PO SCH (12:15)
[2018-06-01 15:39] VITALS: BP 133/61
[2018-06-01] MEDS: DONEPEZIL HCL 10 MG TABLET PO SCH (19:43)
[2018-06-01] MEDS: risperiDONE 0.25 MG TABLET. PO SCH (19:48)
--- NOTE | 2018-06-01 22:12 | PN ---
DATE: 05/30/2018 This is a late entry for 05/30/2018 covers elements not covered in my initial note. SUBJECTIVE: I met with the patient in the evening. The patient slept 8-1/2 hours previous night. She was agitated in the morning, received Zyprexa x 1, delusional thought she had a miscarriage. REVIEW OF SYSTEMS: Hard of hearing. No CV, , pulmonary, eye system symptoms on review. MENTAL STATUS EXAM: Oriented to herself. Insight, judgment, recent and remote memory, attention, concentration, fund of knowledge poor, consistent with her diagnosis. She appears quite paranoid. LABORATORY DATA: Reviewed. IMPRESSION: Major neurocognitive disorder, Alzheimer, vascular with delusion, depression, behavioral disturbance. Rest unchanged from initial note. PLAN: No change from initial note, but we may add Risperdal as an atypical antipsychotic if her paranoia persists. MAN Eddi VALLE MD DR: SPIKE/stefano JOB#: [id number] / [id number]
--- NOTE | 2018-06-01 22:47 | PDOC ---
Exam Note: Christopher Note: Please also refer to the separate dictated note~for this date of service dictated separately.~Patient seen individually. Discussed the patient with Nursing staff reviewed the chart.~Reviewed interim history and current functioning. Reviewed vital signs,~Labs/ Radiology~and current medications noted below. Continue current treatment with the changes noted in the dictated addendum note Assessment: Vital Signs: Vital Signs Date Time Temp Pulse Resp B/P (MAP) Pulse Ox O2 Delivery O2 Flow Rate FiO2 06/01/18 19:48 66 133/61 06/01/18 15:39 98.7 18 98 05/29/18 16:33 Room Air I&O Intake and Output 06/01/18 07:01 Intake Total 1080 ml Balance 1080 ml Intake Oral 1080 ml # Voids 1 Current Medications: Meds: Current Medications Acetaminophen (Tylenol) 650 mg BID PO Last administered on 06/01/18at 19:43; Start 05/24/18 at 21:00 Gabapentin (Neurontin) 200 mg TID PO Last administered on 06/01/18at 19:43; Start 05/24/18 at 14:30 Levothyroxine Sodium (Synthroid) 100 mcg DAILYAC PO Last administered on at 07:56; Start 05/25/18 at 07:30; Stop 05/25/18 at 07:59; Status DC Al Hydroxide/Mg Hydroxide (Mylanta Plus Xs) 20 ml PRN Q4HRS PRN PO DYSPEPSIA; Start 05/24/18 at 13:45 Mirabegron (Myrbetriq) 25 mg DAILY PO Last administered on 06/01/18at 07:45; Start 05/25/18 at 09:00 Tramadol HCl (Ultram) 50 mg PRN Q8HRS PRN PO PAIN; Start 05/24/18 at 13:45 Acetaminophen (Tylenol) 1,000 mg PRN Q6HRS PRN PO PAIN / TEMP; Start 05/24/18 at 14:30 Apixaban (Eliquis) 5 mg BID PO Last administered on 06/01/18at 19:41; Start at 21:00 Bisacodyl (Dulcolax Supp) 10 mg PRN DAILY PRN [place] CONSTIPATION; Start 05/24/18 at 14:30 Calcium/Vitamin D (Oscal D 500mg/ 200uts) 1 tab DAILY PO Last administered on 07:43; Start 05/25/18 at 09:00 Donepezil HCl (Aricept) 5 mg HS PO Last administered on 05/26/18 20:09; Start 05/24/18 at 21:00; Stop 05/27/18 at 18:19; Status DC Levetiracetam (Keppra) 500 mg BID PO Last administered on 06/01/18 19:43; Start 05/24/18 at 21:00 Lorazepam (Ativan) 0.5 mg DAILYWLUN PO Last administered on 06/01/18 12:15; Start 05/25/18 at 12:00 Lorazepam (Ativan) 0.5 mg PRN Q6HRS PRN PO ANXIETY / AGITATION Last administered on 05/28/18 16:00; Start 05/24/18 at 14:30 Magnesium Hydroxide (Milk Of Magnesia) 2,400 mg PRN QHS PRN PO CONSTIPATION Last administered on 05/28/18 12:11; Start 05/24/18 at 14:30 Olanzapine (ZyPREXA ZYDIS) 2.5 mg PRN Q6HRS PRN PO ANXIETY / AGITATION Last administered on 05/31/18 18:07; Start 05/24/18 at 14:45; Stop 05/31/18 at 20:27 ; Status DC Non-Formulary Medication (Propafenone Hcl ) 150 mg TID PO ; Start 05/24/18 at 14 :00; Stop 05/24/18 at 14:37; Status DC Risperidone (RisperDAL) 0.5 mg PRN Q12HR PRN PO ANXIETY / AGITATION; Start at 14:45; Stop 05/25/18 at 21:57; Status DC Trazodone HCl (Desyrel) 50 mg PRN QHS PRN PO INSOMNIA; Start 05/24/18 at 14:45 Multi-Ingredient Ointment (Analgesic [place]) 1 norbert PRN QID PRN TP MUSCLE PAIN; Start 05/24/18 at 14:15 Propafenone HCl (Rythmol) 150 mg TID PO ; Start 05/24/18 at 21:00; Status Cancel Propafenone HCl (Rythmol) 150 mg TID PO Last administered on 06/01/18 19:48; Start 05/24/18 at 15:00 Levothyroxine Sodium (Synthroid) 100 mcg 0600 PO Last administered on 05:46; Start 05/26/18 at 06:00 Vitamin D (Vitamin D3) 50,000 unit WEEKLY PO ; Start 05/25/18 at 18:15; Stop at 18:36; Status DC Vitamin D (Vitamin D3) 50,000 unit WEEKLY PO Last administered on 05/26/18 07: 51; Start 05/26/18 at 09:00 Sertraline HCl (Zoloft) 25 mg DAILY PO Last administered on 05/28/18 07:59; Start 05/26/18 at 09:00; Stop 05/29/18 at 08:59; Status DC Sertraline HCl (Zoloft) 50 mg DAILY PO Last administered on 06/01/18 07:43; Start 05/29/18 at 09:00 Donepezil HCl (Aricept) 10 mg QHS PO Last administered on 06/01/18 19:43; Start 05/27/18 at 21:00 Amoxicillin/ Clavulanate Potassium (Augmentin 500/ 125mg) 1 tab BID PO Last administered on 06/01/18 19:43; Start 05/28/18 at 21:00; Stop 06/04/18 at 20:59 Lactobacillus Rhamnosus (Culturelle) 1 cap BID PO Last administered on 19:43; Start 05/29/18 at 09:00 Carbidopa/Levodopa (Sinemet Cr) 1 tab.sa TID PO ; Start 05/31/18 at 21:00; Stop 05/31/18 at 21:00; Status DC Olanzapine (ZyPREXA ZYDIS) 2.5 mg PRN Q2HR PRN PO ANXIETY / AGITATION; Start at 20:30 Olanzapine (ZyPREXA ZYDIS) 5 mg 1X ONCE PO Last administered on 05/31/18 20: 36; Start 05/31/18 at 20:30; Stop 05/31/18 at 20:34; Status DC Risperidone (RisperDAL) 0.25 mg HS PO Last administered on 1/28/19at 19:48; Start 06/01/18 at 21:00 Active Scripts Active Reported Acetaminophen 500 Mg Tablet 1,000 Mg PO PRN Q6HRS PRN Lorazepam 0.5 Mg Tablet 0.5 Mg PO PRN Q6HRS PRN Dulcolax (Bisacodyl) 10 Mg Supp.rect 10 Mg RC PRN DAILY PRN Maalox Maximum Strength Susp (Mag Hydrox/Al Hydrox/Simeth) 355 Ml Oral.susp 20 Ml PO PRN Q4HRS PRN Propafenone Hcl 150 Mg Tablet 150 Mg PO TID Myrbetriq (Mirabegron) 25 Mg Tab.er.24h 25 Mg PO DAILY Trazodone Hcl 50 Mg Tablet 50 Mg PO PRN QHS PRN Tramadol Hcl (Tramadol HCl) 50 Mg Tablet 50 Mg PO PRN Q8HRS PRN Risperdal (Risperidone) 0.5 Mg Tablet 0.5 Mg PO PRN Q12HR PRN Olanzapine 5 Mg Tablet 2.5 Mg PO PRN Q6HRS PRN Milk Of Magnesia (Magnesium Hydroxide) 2,400 Mg/10 Ml Oral.susp 2,400 Mg PO PRN QHS PRN Tylenol (Acetaminophen) 325 Mg Tablet 650 Mg PO BID Lorazepam 0.5 Mg Tablet 0.5 Mg PO DAILYWLUN Levothyroxine Sodium 100 Mcg Tablet 100 Mcg PO DAILYAC Levetiracetam 500 Mg Tablet 500 Mg PO BID Gabapentin (Gabapentin) 100 Mg Capsule 200 Mg PO TID Eliquis (Apixaban) 5 Mg Tablet 5 Mg PO BID Donepezil Hcl 5 Mg Tablet 5 Mg PO HS Calcium 500 + Vit D 400 Tablet (Calcium Carbonate/Vitamin D3) 1 Each Tablet 1 Each PO DAILY I have reviewed the current psychotropics carefully including drug interactions. Risk benefit ratio favors no change other than as noted in my dictated progress note. Diagnosis: Problems: (1) Anxiety disorder (2) Dementia, vascular, with delusions (3) Dementia, vascular, with depression (4) Dementia in Alzheimer's disease with delusions (5) Dementia in Alzheimer's disease with depression (6) Impulse control disorder VIKI VALLE MD Jun 01, 2018 22:47
[2018-06-02 06:15] VITALS: BP 130/73
[2018-06-02] MEDS: LEVOTHYROXINE 100 MCG TABLET PO SCH (06:18)
[2018-06-02] MEDS: GABAPENTIN 100 MG CAPSULE. PO SCH ×3 (08:02→20:10)
[2018-06-02] MEDS: ACETAMINOPHEN 325 MG TABLET PO SCH ×2 (08:02→20:10)
[2018-06-02] MEDS: SERTRALINE 50 MG TABLET. PO SCH (08:02)
[2018-06-02] MEDS: AMOXICILLIN/K CLAV 500/125MG TABLET. PO SCH ×2 (08:02→20:01)
[2018-06-02] MEDS: LACTOBACILLUS RHAMNOSUS GG 1 CAPSULE. PO SCH ×2 (08:02→20:01)
[2018-06-02] MEDS: PROPAFENONE 150 MG TABLET. PO SCH ×3 (08:03→20:10)
[2018-06-02] MEDS: APIXABAN 5 MG TABLET. PO SCH ×2 (08:03→20:01)
[2018-06-02] MEDS: levETIRAcetam 500 MG TABLET PO SCH ×2 (08:03→20:01)
[2018-06-02] MEDS: CALCIUM CARB/VIT D3 500/200 TABLET PO SCH (08:03)
[2018-06-02] MEDS: CHOLECALCIFEROL (VITAMIN D3) 50,000 UNIT CAPSULE PO SCH (08:03)
[2018-06-02] MEDS: MIRABEGRON 25 MG TAB.ER.24H PO SCH (08:03)
[2018-06-02] MEDS: LORazepam 0.5 MG TABLET PO SCH (11:54)
[2018-06-02 16:08] VITALS: BP 158/88
[2018-06-02] MEDS: DONEPEZIL HCL 10 MG TABLET PO SCH (20:00)
[2018-06-02] MEDS: risperiDONE 0.25 MG TABLET. PO SCH (20:01)
--- NOTE | 2018-06-02 21:45 | PN ---
DATE: 06/01/2018 This late entry 06/01/2018 covers elements not covered in my initial note. SUBJECTIVE: I met with the patient in the evening. The patient slept 6-3/4 hours previous night. She was extremely agitated previous night, aggressive, striking out at nursing staff, combative. In the morning, she is pleasant, somewhat withdrawn. She remains paranoid. REVIEW OF SYSTEMS: Hard of hearing. No CV, , pulmonary, eye system symptoms on review. MENTAL STATUS EXAM: Oriented to herself. Insight, judgment, recent and remote memory, attention, concentration, fund of knowledge poor, consistent with her diagnosis. LABORATORY DATA: Reviewed. IMPRESSION: Major neurocognitive disorder, Alzheimer, vascular with delusion, depression, behavioral disturbance. Rest unchanged. PLAN: Start Risperdal 0.25 mg p.o. at bedtime. Rest psychotropics unchanged for now. MAN Eddi VALLE MD DR: SPIKE/stefano JOB#: [id number] / [id number]
--- NOTE | 2018-06-02 22:36 | PDOC ---
Exam Note: Christopher Note: Please also refer to the separate dictated note~for this date of service dictated separately.~Patient seen individually. Discussed the patient with Nursing staff reviewed the chart.~Reviewed interim history and current functioning. Reviewed vital signs,~Labs/ Radiology~and current medications noted below. Continue current treatment with the changes noted in the dictated addendum note Assessment: Vital Signs: Vital Signs Date Time Temp Pulse Resp B/P (MAP) Pulse Ox O2 Delivery O2 Flow Rate FiO2 06/02/18 20:10 75 158/88 06/02/18 16:08 98.4 17 96 Room Air I&O Intake and Output 06/02/18 07:01 Intake Total 1440 ml Balance 1440 ml Intake Oral 1440 ml Current Medications: Meds: Current Medications Acetaminophen (Tylenol) 650 mg BID PO Last administered on 06/02/18at 20:10; Start 05/24/18 at 21:00 Gabapentin (Neurontin) 200 mg TID PO Last administered on 06/02/18at 20:10; Start 05/24/18 at 14:30 Levothyroxine Sodium (Synthroid) 100 mcg DAILYAC PO Last administered on at 07:56; Start 05/25/18 at 07:30; Stop 05/25/18 at 07:59; Status DC Al Hydroxide/Mg Hydroxide (Mylanta Plus Xs) 20 ml PRN Q4HRS PRN PO DYSPEPSIA; Start 05/24/18 at 13:45 Mirabegron (Myrbetriq) 25 mg DAILY PO Last administered on 06/02/18at 08:03; Start 05/25/18 at 09:00 Tramadol HCl (Ultram) 50 mg PRN Q8HRS PRN PO PAIN; Start 05/24/18 at 13:45 Acetaminophen (Tylenol) 1,000 mg PRN Q6HRS PRN PO PAIN / TEMP; Start 05/24/18 at 14:30 Apixaban (Eliquis) 5 mg BID PO Last administered on 06/02/18at 20:01; Start at 21:00 Bisacodyl (Dulcolax Supp) 10 mg PRN DAILY PRN [place] CONSTIPATION; Start 05/24/18 at 14:30 Calcium/Vitamin D (Oscal D 500mg/ 200uts) 1 tab DAILY PO Last administered on 08:03; Start 05/25/18 at 09:00 Donepezil HCl (Aricept) 5 mg HS PO Last administered on 05/26/18 20:09; Start 05/24/18 at 21:00; Stop 05/27/18 at 18:19; Status DC Levetiracetam (Keppra) 500 mg BID PO Last administered on 06/02/18 20:01; Start 05/24/18 at 21:00 Lorazepam (Ativan) 0.5 mg DAILYWLUN PO Last administered on 06/02/18 11:54; Start 05/25/18 at 12:00 Lorazepam (Ativan) 0.5 mg PRN Q6HRS PRN PO ANXIETY / AGITATION Last administered on 05/28/18 16:00; Start 05/24/18 at 14:30 Magnesium Hydroxide (Milk Of Magnesia) 2,400 mg PRN QHS PRN PO CONSTIPATION Last administered on 05/28/18 12:11; Start 05/24/18 at 14:30 Olanzapine (ZyPREXA ZYDIS) 2.5 mg PRN Q6HRS PRN PO ANXIETY / AGITATION Last administered on 05/31/18 18:07; Start 05/24/18 at 14:45; Stop 05/31/18 at 20:27 ; Status DC Non-Formulary Medication (Propafenone Hcl ) 150 mg TID PO ; Start 05/24/18 at 14 :00; Stop 05/24/18 at 14:37; Status DC Risperidone (RisperDAL) 0.5 mg PRN Q12HR PRN PO ANXIETY / AGITATION; Start at 14:45; Stop 05/25/18 at 21:57; Status DC Trazodone HCl (Desyrel) 50 mg PRN QHS PRN PO INSOMNIA; Start 05/24/18 at 14:45 Multi-Ingredient Ointment (Analgesic [place]) 1 norbert PRN QID PRN TP MUSCLE PAIN; Start 05/24/18 at 14:15 Propafenone HCl (Rythmol) 150 mg TID PO ; Start 05/24/18 at 21:00; Status Cancel Propafenone HCl (Rythmol) 150 mg TID PO Last administered on 06/02/18 20:10; Start 05/24/18 at 15:00 Levothyroxine Sodium (Synthroid) 100 mcg 0600 PO Last administered on 06:18; Start 05/26/18 at 06:00 Vitamin D (Vitamin D3) 50,000 unit WEEKLY PO ; Start 05/25/18 at 18:15; Stop at 18:36; Status DC Vitamin D (Vitamin D3) 50,000 unit WEEKLY PO Last administered on 06/02/18 08: 03; Start 05/26/18 at 09:00 Sertraline HCl (Zoloft) 25 mg DAILY PO Last administered on 05/28/18 07:59; Start 05/26/18 at 09:00; Stop 05/29/18 at 08:59; Status DC Sertraline HCl (Zoloft) 50 mg DAILY PO Last administered on 06/02/18 08:02; Start 05/29/18 at 09:00 Donepezil HCl (Aricept) 10 mg QHS PO Last administered on 06/02/18 20:00; Start 05/27/18 at 21:00 Amoxicillin/ Clavulanate Potassium (Augmentin 500/ 125mg) 1 tab BID PO Last administered on 06/02/18 20:01; Start 05/28/18 at 21:00; Stop 06/04/18 at 20:59 Lactobacillus Rhamnosus (Culturelle) 1 cap BID PO Last administered on 20:01; Start 05/29/18 at 09:00 Carbidopa/Levodopa (Sinemet Cr) 1 tab.sa TID PO ; Start 05/31/18 at 21:00; Stop 05/31/18 at 21:00; Status DC Olanzapine (ZyPREXA ZYDIS) 2.5 mg PRN Q2HR PRN PO ANXIETY / AGITATION; Start at 20:30 Olanzapine (ZyPREXA ZYDIS) 5 mg 1X ONCE PO Last administered on 05/31/18 20: 36; Start 05/31/18 at 20:30; Stop 05/31/18 at 20:34; Status DC Risperidone (RisperDAL) 0.25 mg HS PO Last administered on 06/02/18 20:01; Start 06/01/18 at 21:00 Active Scripts Active Reported Acetaminophen 500 Mg Tablet 1,000 Mg PO PRN Q6HRS PRN Lorazepam 0.5 Mg Tablet 0.5 Mg PO PRN Q6HRS PRN Dulcolax (Bisacodyl) 10 Mg Supp.rect 10 Mg RC PRN DAILY PRN Maalox Maximum Strength Susp (Mag Hydrox/Al Hydrox/Simeth) 355 Ml Oral.susp 20 Ml PO PRN Q4HRS PRN Propafenone Hcl 150 Mg Tablet 150 Mg PO TID Myrbetriq (Mirabegron) 25 Mg Tab.er.24h 25 Mg PO DAILY Trazodone Hcl 50 Mg Tablet 50 Mg PO PRN QHS PRN Tramadol Hcl (Tramadol HCl) 50 Mg Tablet 50 Mg PO PRN Q8HRS PRN Risperdal (Risperidone) 0.5 Mg Tablet 0.5 Mg PO PRN Q12HR PRN Olanzapine 5 Mg Tablet 2.5 Mg PO PRN Q6HRS PRN Milk Of Magnesia (Magnesium Hydroxide) 2,400 Mg/10 Ml Oral.susp 2,400 Mg PO PRN QHS PRN Tylenol (Acetaminophen) 325 Mg Tablet 650 Mg PO BID Lorazepam 0.5 Mg Tablet 0.5 Mg PO DAILYWLUN Levothyroxine Sodium 100 Mcg Tablet 100 Mcg PO DAILYAC Levetiracetam 500 Mg Tablet 500 Mg PO BID Gabapentin (Gabapentin) 100 Mg Capsule 200 Mg PO TID Eliquis (Apixaban) 5 Mg Tablet 5 Mg PO BID Donepezil Hcl 5 Mg Tablet 5 Mg PO HS Calcium 500 + Vit D 400 Tablet (Calcium Carbonate/Vitamin D3) 1 Each Tablet 1 Each PO DAILY I have reviewed the current psychotropics carefully including drug interactions. Risk benefit ratio favors no change other than as noted in my dictated progress note. Diagnosis: Problems: (1) Anxiety disorder (2) Dementia, vascular, with delusions (3) Dementia, vascular, with depression (4) Dementia in Alzheimer's disease with delusions (5) Dementia in Alzheimer's disease with depression (6) Impulse control disorder VIKI VALLE MD Jun 02, 2018 22:36
[2018-06-03] MEDS: LEVOTHYROXINE 100 MCG TABLET PO SCH (05:51)
[2018-06-03 05:52] VITALS: BP 144/78
[2018-06-03] MEDS: LACTOBACILLUS RHAMNOSUS GG 1 CAPSULE. PO SCH ×2 (08:06→20:07)
[2018-06-03] MEDS: SERTRALINE 50 MG TABLET. PO SCH (08:06)
[2018-06-03] MEDS: ACETAMINOPHEN 325 MG TABLET PO SCH ×2 (08:06→20:07)
[2018-06-03] MEDS: levETIRAcetam 500 MG TABLET PO SCH ×2 (08:06→20:08)
[2018-06-03] MEDS: CALCIUM CARB/VIT D3 500/200 TABLET PO SCH (08:06)
[2018-06-03] MEDS: AMOXICILLIN/K CLAV 500/125MG TABLET. PO SCH ×2 (08:06→20:07)
[2018-06-03] MEDS: APIXABAN 5 MG TABLET. PO SCH ×2 (08:06→20:08)
[2018-06-03] MEDS: GABAPENTIN 100 MG CAPSULE. PO SCH ×3 (08:07→20:08)
[2018-06-03] MEDS: MIRABEGRON 25 MG TAB.ER.24H PO SCH (08:09)
[2018-06-03] MEDS: PROPAFENONE 150 MG TABLET. PO SCH ×3 (08:11→20:09)
[2018-06-03] MEDS: LORazepam 0.5 MG TABLET PO SCH (12:08)
[2018-06-03 16:27] VITALS: BP 133/84
[2018-06-03] MEDS: MAGNESIUM HYDROXIDE 2,400 MG/30 ML ORAL.SUSP. PO PRN (17:01)
[2018-06-03] MEDS: DONEPEZIL HCL 10 MG TABLET PO SCH (20:08)
[2018-06-03] MEDS: risperiDONE 0.25 MG TABLET. PO SCH (20:08)
--- NOTE | 2018-06-03 21:00 | PN ---
DATE: 06/02/2018 PSYCHIATRIC PROGRESS NOTE This late entry 06/02/2018 covers elements not covered in my initial note. SUBJECTIVE: I met with the patient in the evening. The patient slept 7-3/4 hours previous night. She has been somewhat sedated during the day, withdrawn, but less paranoid. REVIEW OF SYSTEMS: Extremely hard of hearing. I met with her in her room. REVIEW OF SYSTEMS: No CV, , pulmonary, eye system symptoms on review. MENTAL STATUS EXAM: Oriented to herself. Insight, judgment, recent and remote memory, attention concentration, fund of knowledge poor, consistent with her diagnoses. IMPRESSION: Major neurocognitive disorder, Alzheimer, vascular with delusion, depression, behavioral disturbance; anxiety disorder, unspecified; impulse control disorder, unspecified. PLAN: Continue current psychotropics including Risperdal 0.25 mg p.o. at bedtime as noted in my initial note. MAN Eddi VALLE MD DR: SPIKE/stefano JOB#: [id number] / [id number]
--- NOTE | 2018-06-03 22:30 | PDOC ---
Exam Note: Christopher Note: Please also refer to the separate dictated note~for this date of service dictated separately.~Patient seen individually. Discussed the patient with Nursing staff reviewed the chart.~Reviewed interim history and current functioning. Reviewed vital signs,~Labs/ Radiology~and current medications noted below. Continue current treatment with the changes noted in the dictated addendum note Assessment: Vital Signs: Vital Signs Date Time Temp Pulse Resp B/P (MAP) Pulse Ox O2 Delivery O2 Flow Rate FiO2 06/03/18 20:09 78 133/84 06/03/18 16:27 98.9 16 97 06/02/18 16:08 Room Air I&O Intake and Output 06/03/18 07:01 Intake Total 480 ml Balance 480 ml Intake Oral 480 ml Current Medications: Meds: Current Medications Acetaminophen (Tylenol) 650 mg BID PO Last administered on 06/03/18at 20:07; Start 05/24/18 at 21:00 Gabapentin (Neurontin) 200 mg TID PO Last administered on 06/03/18at 20:08; Start 05/24/18 at 14:30 Levothyroxine Sodium (Synthroid) 100 mcg DAILYAC PO Last administered on at 07:56; Start 05/25/18 at 07:30; Stop 05/25/18 at 07:59; Status DC Al Hydroxide/Mg Hydroxide (Mylanta Plus Xs) 20 ml PRN Q4HRS PRN PO DYSPEPSIA; Start 05/24/18 at 13:45 Mirabegron (Myrbetriq) 25 mg DAILY PO Last administered on 06/03/18at 08:09; Start 05/25/18 at 09:00 Tramadol HCl (Ultram) 50 mg PRN Q8HRS PRN PO PAIN; Start 05/24/18 at 13:45 Acetaminophen (Tylenol) 1,000 mg PRN Q6HRS PRN PO PAIN / TEMP; Start 05/24/18 at 14:30 Apixaban (Eliquis) 5 mg BID PO Last administered on 06/03/18at 20:08; Start at 21:00 Bisacodyl (Dulcolax Supp) 10 mg PRN DAILY PRN AL CONSTIPATION; Start 05/24/18 at 14:30 Calcium/Vitamin D (Oscal D 500mg/ 200uts) 1 tab DAILY PO Last administered on 08:06; Start 05/25/18 at 09:00 Donepezil HCl (Aricept) 5 mg HS PO Last administered on 05/26/18 20:09; Start 05/24/18 at 21:00; Stop 05/27/18 at 18:19; Status DC Levetiracetam (Keppra) 500 mg BID PO Last administered on 06/03/18 20:08; Start 05/24/18 at 21:00 Lorazepam (Ativan) 0.5 mg DAILYWLUN PO Last administered on 06/03/18 12:08; Start 05/25/18 at 12:00 Lorazepam (Ativan) 0.5 mg PRN Q6HRS PRN PO ANXIETY / AGITATION Last administered on 05/28/18 16:00; Start 05/24/18 at 14:30 Magnesium Hydroxide (Milk Of Magnesia) 2,400 mg PRN QHS PRN PO CONSTIPATION Last administered on 06/03/18 17:01; Start 05/24/18 at 14:30 Olanzapine (ZyPREXA ZYDIS) 2.5 mg PRN Q6HRS PRN PO ANXIETY / AGITATION Last administered on 05/31/18 18:07; Start 05/24/18 at 14:45; Stop 05/31/18 at 20:27 ; Status DC Non-Formulary Medication (Propafenone Hcl ) 150 mg TID PO ; Start 05/24/18 at 14 :00; Stop 05/24/18 at 14:37; Status DC Risperidone (RisperDAL) 0.5 mg PRN Q12HR PRN PO ANXIETY / AGITATION; Start at 14:45; Stop 05/25/18 at 21:57; Status DC Trazodone HCl (Desyrel) 50 mg PRN QHS PRN PO INSOMNIA; Start 05/24/18 at 14:45 Multi-Ingredient Ointment (Analgesic [place]) 1 norbert PRN QID PRN TP MUSCLE PAIN; Start 05/24/18 at 14:15 Propafenone HCl (Rythmol) 150 mg TID PO ; Start 05/24/18 at 21:00; Status Cancel Propafenone HCl (Rythmol) 150 mg TID PO Last administered on 06/03/18 20:09; Start 05/24/18 at 15:00 Levothyroxine Sodium (Synthroid) 100 mcg 0600 PO Last administered on 05:51; Start 05/26/18 at 06:00 Vitamin D (Vitamin D3) 50,000 unit WEEKLY PO ; Start 05/25/18 at 18:15; Stop at 18:36; Status DC Vitamin D (Vitamin D3) 50,000 unit WEEKLY PO Last administered on 06/02/18 08: 03; Start 05/26/18 at 09:00 Sertraline HCl (Zoloft) 25 mg DAILY PO Last administered on 05/28/18 07:59; Start 05/26/18 at 09:00; Stop 05/29/18 at 08:59; Status DC Sertraline HCl (Zoloft) 50 mg DAILY PO Last administered on 06/03/18 08:06; Start 05/29/18 at 09:00 Donepezil HCl (Aricept) 10 mg QHS PO Last administered on 06/03/18 20:08; Start 05/27/18 at 21:00 Amoxicillin/ Clavulanate Potassium (Augmentin 500/ 125mg) 1 tab BID PO Last administered on 06/03/18 20:07; Start 05/28/18 at 21:00; Stop 06/04/18 at 20:59 Lactobacillus Rhamnosus (Culturelle) 1 cap BID PO Last administered on 20:07; Start 05/29/18 at 09:00 Carbidopa/Levodopa (Sinemet Cr) 1 tab.sa TID PO ; Start 05/31/18 at 21:00; Stop 05/31/18 at 21:00; Status DC Olanzapine (ZyPREXA ZYDIS) 2.5 mg PRN Q2HR PRN PO ANXIETY / AGITATION; Start at 20:30 Olanzapine (ZyPREXA ZYDIS) 5 mg 1X ONCE PO Last administered on 05/31/18 20: 36; Start 05/31/18 at 20:30; Stop 05/31/18 at 20:34; Status DC Risperidone (RisperDAL) 0.25 mg HS PO Last administered on 06/03/18 20:08; Start 06/01/18 at 21:00 Active Scripts Active Reported Acetaminophen 500 Mg Tablet 1,000 Mg PO PRN Q6HRS PRN Lorazepam 0.5 Mg Tablet 0.5 Mg PO PRN Q6HRS PRN Dulcolax (Bisacodyl) 10 Mg Supp.rect 10 Mg RC PRN DAILY PRN Maalox Maximum Strength Susp (Mag Hydrox/Al Hydrox/Simeth) 355 Ml Oral.susp 20 Ml PO PRN Q4HRS PRN Propafenone Hcl 150 Mg Tablet 150 Mg PO TID Myrbetriq (Mirabegron) 25 Mg Tab.er.24h 25 Mg PO DAILY Trazodone Hcl 50 Mg Tablet 50 Mg PO PRN QHS PRN Tramadol Hcl (Tramadol HCl) 50 Mg Tablet 50 Mg PO PRN Q8HRS PRN Risperdal (Risperidone) 0.5 Mg Tablet 0.5 Mg PO PRN Q12HR PRN Olanzapine 5 Mg Tablet 2.5 Mg PO PRN Q6HRS PRN Milk Of Magnesia (Magnesium Hydroxide) 2,400 Mg/10 Ml Oral.susp 2,400 Mg PO PRN QHS PRN Tylenol (Acetaminophen) 325 Mg Tablet 650 Mg PO BID Lorazepam 0.5 Mg Tablet 0.5 Mg PO DAILYWLUN Levothyroxine Sodium 100 Mcg Tablet 100 Mcg PO DAILYAC Levetiracetam 500 Mg Tablet 500 Mg PO BID Gabapentin (Gabapentin) 100 Mg Capsule 200 Mg PO TID Eliquis (Apixaban) 5 Mg Tablet 5 Mg PO BID Donepezil Hcl 5 Mg Tablet 5 Mg PO HS Calcium 500 + Vit D 400 Tablet (Calcium Carbonate/Vitamin D3) 1 Each Tablet 1 Each PO DAILY I have reviewed the current psychotropics carefully including drug interactions. Risk benefit ratio favors no change other than as noted in my dictated progress note. Diagnosis: Problems: (1) Anxiety disorder (2) Dementia, vascular, with delusions (3) Dementia, vascular, with depression (4) Dementia in Alzheimer's disease with delusions (5) Dementia in Alzheimer's disease with depression (6) Impulse control disorder VIKI VALLE MD Jun 03, 2018 22:30
[2018-06-04] MEDS: LEVOTHYROXINE 100 MCG TABLET PO SCH (06:07)
[2018-06-04 06:47] VITALS: BP 121/71
[2018-06-04] MEDS: SERTRALINE 50 MG TABLET. PO SCH (12:19)
[2018-06-04] MEDS: levETIRAcetam 500 MG TABLET PO SCH ×2 (12:19→20:33)
[2018-06-04] MEDS: AMOXICILLIN/K CLAV 500/125MG TABLET. PO SCH (12:19)
[2018-06-04] MEDS: ACETAMINOPHEN 325 MG TABLET PO SCH ×2 (12:19→20:34)
[2018-06-04] MEDS: LACTOBACILLUS RHAMNOSUS GG 1 CAPSULE. PO SCH ×2 (12:19→20:32)
[2018-06-04] MEDS: GABAPENTIN 100 MG CAPSULE. PO SCH ×3 (12:20→20:34)
[2018-06-04] MEDS: MIRABEGRON 25 MG TAB.ER.24H PO SCH (12:20)
[2018-06-04] MEDS: APIXABAN 5 MG TABLET. PO SCH ×2 (12:20→20:34)
[2018-06-04] MEDS: PROPAFENONE 150 MG TABLET. PO SCH ×3 (12:20→20:33)
[2018-06-04] MEDS: CALCIUM CARB/VIT D3 500/200 TABLET PO SCH (12:20)
[2018-06-04] MEDS: LORazepam 0.5 MG TABLET PO SCH (12:20)
[2018-06-04 16:12] VITALS: BP 103/63
[2018-06-04] MEDS: risperiDONE 0.25 MG TABLET. PO SCH (20:33)
[2018-06-04] MEDS: DONEPEZIL HCL 10 MG TABLET PO SCH (20:33)
--- NOTE | 2018-06-04 22:25 | PDOC ---
Exam Note: Christopher Note: Please also refer to the separate dictated note~for this date of service dictated separately.~Patient seen individually. Discussed the patient with Nursing staff reviewed the chart.~Reviewed interim history and current functioning. Reviewed vital signs,~Labs/ Radiology~and current medications noted below. Continue current treatment with the changes noted in the dictated addendum note Assessment: Vital Signs: Vital Signs Date Time Temp Pulse Resp B/P (MAP) Pulse Ox O2 Delivery O2 Flow Rate FiO2 06/04/18 20:33 69 103/63 06/04/18 16:12 97.9 16 06/04/18 06:47 94 06/02/18 16:08 Room Air I&O Intake and Output 06/04/18 07:01 Intake Total 1325 ml Balance 1325 ml Intake Oral 1325 ml # Voids 1 Current Medications: Meds: Current Medications Acetaminophen (Tylenol) 650 mg BID PO Last administered on 06/04/18at 20:34; Start 05/24/18 at 21:00 Gabapentin (Neurontin) 200 mg TID PO Last administered on 06/04/18at 20:34; Start 05/24/18 at 14:30 Levothyroxine Sodium (Synthroid) 100 mcg DAILYAC PO Last administered on at 07:56; Start 05/25/18 at 07:30; Stop 05/25/18 at 07:59; Status DC Al Hydroxide/Mg Hydroxide (Mylanta Plus Xs) 20 ml PRN Q4HRS PRN PO DYSPEPSIA; Start 05/24/18 at 13:45 Mirabegron (Myrbetriq) 25 mg DAILY PO Last administered on 06/04/18at 12:20; Start 05/25/18 at 09:00 Tramadol HCl (Ultram) 50 mg PRN Q8HRS PRN PO PAIN; Start 05/24/18 at 13:45 Acetaminophen (Tylenol) 1,000 mg PRN Q6HRS PRN PO PAIN / TEMP; Start 05/24/18 at 14:30 Apixaban (Eliquis) 5 mg BID PO Last administered on 06/04/18at 20:34; Start at 21:00 Bisacodyl (Dulcolax Supp) 10 mg PRN DAILY PRN [place] CONSTIPATION; Start 05/24/18 at 14:30 Calcium/Vitamin D (Oscal D 500mg/ 200uts) 1 tab DAILY PO Last administered on 12:20; Start 05/25/18 at 09:00 Donepezil HCl (Aricept) 5 mg HS PO Last administered on 05/26/18at 20:09; Start 05/24/18 at 21:00; Stop 05/27/18 at 18:19; Status DC Levetiracetam (Keppra) 500 mg BID PO Last administered on 06/04/18 20:33; Start 05/24/18 at 21:00 Lorazepam (Ativan) 0.5 mg DAILYWLUN PO Last administered on 06/04/18 12:20; Start 05/25/18 at 12:00 Lorazepam (Ativan) 0.5 mg PRN Q6HRS PRN PO ANXIETY / AGITATION Last administered on 05/28/18 16:00; Start 05/24/18 at 14:30 Magnesium Hydroxide (Milk Of Magnesia) 2,400 mg PRN QHS PRN PO CONSTIPATION Last administered on 06/03/18 17:01; Start 05/24/18 at 14:30 Olanzapine (ZyPREXA ZYDIS) 2.5 mg PRN Q6HRS PRN PO ANXIETY / AGITATION Last administered on 05/31/18 18:07; Start 05/24/18 at 14:45; Stop 05/31/18 at 20:27 ; Status DC Non-Formulary Medication (Propafenone Hcl ) 150 mg TID PO ; Start 05/24/18 at 14 :00; Stop 05/24/18 at 14:37; Status DC Risperidone (RisperDAL) 0.5 mg PRN Q12HR PRN PO ANXIETY / AGITATION; Start at 14:45; Stop 05/25/18 at 21:57; Status DC Trazodone HCl (Desyrel) 50 mg PRN QHS PRN PO INSOMNIA; Start 05/24/18 at 14:45 Multi-Ingredient Ointment (Analgesic [place]) 1 norbert PRN QID PRN TP MUSCLE PAIN; Start 05/24/18 at 14:15 Propafenone HCl (Rythmol) 150 mg TID PO ; Start 05/24/18 at 21:00; Status Cancel Propafenone HCl (Rythmol) 150 mg TID PO Last administered on 06/04/18at 20:33; Start 05/24/18 at 15:00 Levothyroxine Sodium (Synthroid) 100 mcg 0600 PO Last administered on at 06:07; Start 05/26/18 at 06:00 Vitamin D (Vitamin D3) 50,000 unit WEEKLY PO ; Start 05/25/18 at 18:15; Stop at 18:36; Status DC Vitamin D (Vitamin D3) 50,000 unit WEEKLY PO Last administered on 06/02/18at 08: 03; Start 05/26/18 at 09:00 Sertraline HCl (Zoloft) 25 mg DAILY PO Last administered on 05/28/18at 07:59; Start 05/26/18 at 09:00; Stop 05/29/18 at 08:59; Status DC Sertraline HCl (Zoloft) 50 mg DAILY PO Last administered on 06/04/18at 12:19; Start 05/29/18 at 09:00 Donepezil HCl (Aricept) 10 mg QHS PO Last administered on 06/04/18at 20:33; Start 05/27/18 at 21:00 Amoxicillin/ Clavulanate Potassium (Augmentin 500/ 125mg) 1 tab BID PO Last administered on 06/04/18at 12:19; Start 05/28/18 at 21:00; Stop 06/04/18 at 20:59 ; Status DC Lactobacillus Rhamnosus (Culturelle) 1 cap BID PO Last administered on at 20:32; Start 05/29/18 at 09:00 Carbidopa/Levodopa (Sinemet Cr) 1 tab.sa TID PO ; Start 05/31/18 at 21:00; Stop 05/31/18 at 21:00; Status DC Olanzapine (ZyPREXA ZYDIS) 2.5 mg PRN Q2HR PRN PO ANXIETY / AGITATION; Start at 20:30 Olanzapine (ZyPREXA ZYDIS) 5 mg 1X ONCE PO Last administered on 05/31/18at 20: 36; Start 05/31/18 at 20:30; Stop 05/31/18 at 20:34; Status DC Risperidone (RisperDAL) 0.25 mg HS PO Last administered on 06/04/18at 20:33; Start 06/01/18 at 21:00 Active Scripts Active Reported Acetaminophen 500 Mg Tablet 1,000 Mg PO PRN Q6HRS PRN Lorazepam 0.5 Mg Tablet 0.5 Mg PO PRN Q6HRS PRN Dulcolax (Bisacodyl) 10 Mg Supp.rect 10 Mg RC PRN DAILY PRN Maalox Maximum Strength Susp (Mag Hydrox/Al Hydrox/Simeth) 355 Ml Oral.susp 20 Ml PO PRN Q4HRS PRN Propafenone Hcl 150 Mg Tablet 150 Mg PO TID Myrbetriq (Mirabegron) 25 Mg Tab.er.24h 25 Mg PO DAILY Trazodone Hcl 50 Mg Tablet 50 Mg PO PRN QHS PRN Tramadol Hcl (Tramadol HCl) 50 Mg Tablet 50 Mg PO PRN Q8HRS PRN Risperdal (Risperidone) 0.5 Mg Tablet 0.5 Mg PO PRN Q12HR PRN Olanzapine 5 Mg Tablet 2.5 Mg PO PRN Q6HRS PRN Milk Of Magnesia (Magnesium Hydroxide) 2,400 Mg/10 Ml Oral.susp 2,400 Mg PO PRN QHS PRN Tylenol (Acetaminophen) 325 Mg Tablet 650 Mg PO BID Lorazepam 0.5 Mg Tablet 0.5 Mg PO DAILYWLUN Levothyroxine Sodium 100 Mcg Tablet 100 Mcg PO DAILYAC Levetiracetam 500 Mg Tablet 500 Mg PO BID Gabapentin (Gabapentin) 100 Mg Capsule 200 Mg PO TID Eliquis (Apixaban) 5 Mg Tablet 5 Mg PO BID Donepezil Hcl 5 Mg Tablet 5 Mg PO HS Calcium 500 + Vit D 400 Tablet (Calcium Carbonate/Vitamin D3) 1 Each Tablet 1 Each PO DAILY I have reviewed the current psychotropics carefully including drug interactions. Risk benefit ratio favors no change other than as noted in my dictated progress note. Diagnosis: Problems: (1) Anxiety disorder (2) Dementia, vascular, with delusions (3) Dementia, vascular, with depression (4) Dementia in Alzheimer's disease with delusions (5) Dementia in Alzheimer's disease with depression (6) Impulse control disorder VIKI VALLE MD Jun 04, 2018 22:25
--- NOTE | 2018-06-05 00:53 | PN ---
DATE: 06/03/2018 This late entry for 06/03/2018 covers elements not covered in my initial note. SUBJECTIVE: I met with the patient in the evening. The patient slept 7-1/2 hours previous night. She remains confused, extremely hard of hearing, but compliant. In the evening, she was restless and wandering. Sedation is much improved, at times exit seeking. REVIEW OF SYSTEMS: Ambulation impaired with walker, hard of hearing. No CV, , pulmonary, eye system symptoms on review. MENTAL STATUS EXAM: Oriented to herself. Insight, judgment, recent and remote memory, attention, concentration, fund of knowledge poor, consistent with her diagnosis mentioned in my initial note. PLAN: No change from initial note. MAN Eddi VALLE MD DR: SPIKE/stefano JOB#: [id number] / [id number]
[2018-06-05] MEDS: LEVOTHYROXINE 100 MCG TABLET PO SCH (06:04)
[2018-06-05 06:16] VITALS: BP 133/71
[2018-06-05] MEDS: MIRABEGRON 25 MG TAB.ER.24H PO SCH (07:53)
[2018-06-05] MEDS: APIXABAN 5 MG TABLET. PO SCH ×2 (07:53→21:00)
[2018-06-05] MEDS: CALCIUM CARB/VIT D3 500/200 TABLET PO SCH (07:53)
[2018-06-05] MEDS: LACTOBACILLUS RHAMNOSUS GG 1 CAPSULE. PO SCH ×2 (07:53→21:00)
[2018-06-05] MEDS: SERTRALINE 50 MG TABLET. PO SCH (07:53)
[2018-06-05] MEDS: levETIRAcetam 500 MG TABLET PO SCH ×2 (07:53→21:00)
[2018-06-05] MEDS: ACETAMINOPHEN 325 MG TABLET PO SCH ×2 (07:53→21:00)
[2018-06-05] MEDS: PROPAFENONE 150 MG TABLET. PO SCH ×3 (07:55→21:00)
[2018-06-05] MEDS: GABAPENTIN 100 MG CAPSULE. PO SCH ×3 (07:56→21:00)
[2018-06-05] MEDS: LORazepam 0.5 MG TABLET PO SCH (12:00)
[2018-06-05 16:01] VITALS: BP 113/63
[2018-06-05] MEDS: DONEPEZIL HCL 10 MG TABLET PO SCH (21:00)
[2018-06-05] MEDS: risperiDONE 0.25 MG TABLET. PO SCH (21:00)
--- NOTE | 2018-06-05 22:49 | PDOC ---
Exam Note: Christopher Note: Please also refer to the separate dictated note~for this date of service dictated separately.~Patient seen individually. Discussed the patient with Nursing staff reviewed the chart.~Reviewed interim history and current functioning. Reviewed vital signs,~Labs/ Radiology~and current medications noted below. Continue current treatment with the changes noted in the dictated addendum note Assessment: Vital Signs: Vital Signs Date Time Temp Pulse Resp B/P (MAP) Pulse Ox O2 Delivery O2 Flow Rate FiO2 06/05/18 16:01 98.4 71 16 113/63 (80) 95 Room Air I&O Intake and Output 06/05/18 07:01 Intake Total 680 ml Balance 680 ml Intake Oral 680 ml Current Medications: Meds: Current Medications Acetaminophen (Tylenol) 650 mg BID PO Last administered on 06/05/18 07:53; Start 05/24/18 at 21:00 Gabapentin (Neurontin) 200 mg TID PO Last administered on 06/05/18at 14:00; Start 05/24/18 at 14:30 Levothyroxine Sodium (Synthroid) 100 mcg DAILYAC PO Last administered on at 07:56; Start 05/25/18 at 07:30; Stop 05/25/18 at 07:59; Status DC Al Hydroxide/Mg Hydroxide (Mylanta Plus Xs) 20 ml PRN Q4HRS PRN PO DYSPEPSIA; Start 05/24/18 at 13:45 Mirabegron (Myrbetriq) 25 mg DAILY PO Last administered on 06/05/18 07:53; Start 05/25/18 at 09:00 Tramadol HCl (Ultram) 50 mg PRN Q8HRS PRN PO PAIN; Start 05/24/18 at 13:45 Acetaminophen (Tylenol) 1,000 mg PRN Q6HRS PRN PO PAIN / TEMP; Start 05/24/18 at 14:30 Apixaban (Eliquis) 5 mg BID PO Last administered on 06/05/18 07:53; Start 05/24 at 21:00 Bisacodyl (Dulcolax Supp) 10 mg PRN DAILY PRN [place] CONSTIPATION; Start 05/24/18 at 14:30 Calcium/Vitamin D (Oscal D 500mg/ 200uts) 1 tab DAILY PO Last administered on 07:53; Start 05/25/18 at 09:00 Donepezil HCl (Aricept) 5 mg HS PO Last administered on 05/26/18 20:09; Start 05/24/18 at 21:00; Stop 05/27/18 at 18:19; Status DC Levetiracetam (Keppra) 500 mg BID PO Last administered on 06/05/18 07:53; Start 05/24/18 at 21:00 Lorazepam (Ativan) 0.5 mg DAILYWLUN PO Last administered on 06/05/18at 12:00; Start 05/25/18 at 12:00 Lorazepam (Ativan) 0.5 mg PRN Q6HRS PRN PO ANXIETY / AGITATION Last administered on 05/28/18 16:00; Start 05/24/18 at 14:30 Magnesium Hydroxide (Milk Of Magnesia) 2,400 mg PRN QHS PRN PO CONSTIPATION Last administered on 06/03/18 17:01; Start 05/24/18 at 14:30 Olanzapine (ZyPREXA ZYDIS) 2.5 mg PRN Q6HRS PRN PO ANXIETY / AGITATION Last administered on 05/31/18 18:07; Start 05/24/18 at 14:45; Stop 05/31/18 at 20:27 ; Status DC Non-Formulary Medication (Propafenone Hcl ) 150 mg TID PO ; Start 05/24/18 at 14 :00; Stop 05/24/18 at 14:37; Status DC Risperidone (RisperDAL) 0.5 mg PRN Q12HR PRN PO ANXIETY / AGITATION; Start at 14:45; Stop 05/25/18 at 21:57; Status DC Trazodone HCl (Desyrel) 50 mg PRN QHS PRN PO INSOMNIA; Start 05/24/18 at 14:45 Multi-Ingredient Ointment (Analgesic [place]) 1 norbert PRN QID PRN TP MUSCLE PAIN; Start 05/24/18 at 14:15 Propafenone HCl (Rythmol) 150 mg TID PO ; Start 05/24/18 at 21:00; Status Cancel Propafenone HCl (Rythmol) 150 mg TID PO Last administered on 06/05/18at 14:00; Start 05/24/18 at 15:00 Levothyroxine Sodium (Synthroid) 100 mcg 0600 PO Last administered on 06/05/18 06:04; Start 05/26/18 at 06:00 Vitamin D (Vitamin D3) 50,000 unit WEEKLY PO ; Start 05/25/18 at 18:15; Stop at 18:36; Status DC Vitamin D (Vitamin D3) 50,000 unit WEEKLY PO Last administered on 06/02/18at 08: 03; Start 05/26/18 at 09:00 Sertraline HCl (Zoloft) 25 mg DAILY PO Last administered on 05/28/18at 07:59; Start 05/26/18 at 09:00; Stop 05/29/18 at 08:59; Status DC Sertraline HCl (Zoloft) 50 mg DAILY PO Last administered on 06/05/18 07:53; Start 05/29/18 at 09:00 Donepezil HCl (Aricept) 10 mg QHS PO Last administered on 06/04/18at 20:33; Start 05/27/18 at 21:00 Amoxicillin/ Clavulanate Potassium (Augmentin 500/ 125mg) 1 tab BID PO Last administered on 06/04/18at 12:19; Start 05/28/18 at 21:00; Stop 06/04/18 at 20:59 ; Status DC Lactobacillus Rhamnosus (Culturelle) 1 cap BID PO Last administered on 07:53; Start 05/29/18 at 09:00 Carbidopa/Levodopa (Sinemet Cr) 1 tab.sa TID PO ; Start 05/31/18 at 21:00; Stop 05/31/18 at 21:00; Status DC Olanzapine (ZyPREXA ZYDIS) 2.5 mg PRN Q2HR PRN PO ANXIETY / AGITATION Last administered on 06/05/18 12:30; Start 05/31/18 at 20:30 Olanzapine (ZyPREXA ZYDIS) 5 mg 1X ONCE PO Last administered on 05/31/18at 20: 36; Start 05/31/18 at 20:30; Stop 05/31/18 at 20:34; Status DC Risperidone (RisperDAL) 0.25 mg HS PO Last administered on 06/04/18at 20:33; Start 06/01/18 at 21:00 Active Scripts Active Reported Acetaminophen 500 Mg Tablet 1,000 Mg PO PRN Q6HRS PRN Lorazepam 0.5 Mg Tablet 0.5 Mg PO PRN Q6HRS PRN Dulcolax (Bisacodyl) 10 Mg Supp.rect 10 Mg RC PRN DAILY PRN Maalox Maximum Strength Susp (Mag Hydrox/Al Hydrox/Simeth) 355 Ml Oral.susp 20 Ml PO PRN Q4HRS PRN Propafenone Hcl 150 Mg Tablet 150 Mg PO TID Myrbetriq (Mirabegron) 25 Mg Tab.er.24h 25 Mg PO DAILY Trazodone Hcl 50 Mg Tablet 50 Mg PO PRN QHS PRN Tramadol Hcl (Tramadol HCl) 50 Mg Tablet 50 Mg PO PRN Q8HRS PRN Risperdal (Risperidone) 0.5 Mg Tablet 0.5 Mg PO PRN Q12HR PRN Olanzapine 5 Mg Tablet 2.5 Mg PO PRN Q6HRS PRN Milk Of Magnesia (Magnesium Hydroxide) 2,400 Mg/10 Ml Oral.susp 2,400 Mg PO PRN QHS PRN Tylenol (Acetaminophen) 325 Mg Tablet 650 Mg PO BID Lorazepam 0.5 Mg Tablet 0.5 Mg PO DAILYWLUN Levothyroxine Sodium 100 Mcg Tablet 100 Mcg PO DAILYAC Levetiracetam 500 Mg Tablet 500 Mg PO BID Gabapentin (Gabapentin) 100 Mg Capsule 200 Mg PO TID Eliquis (Apixaban) 5 Mg Tablet 5 Mg PO BID Donepezil Hcl 5 Mg Tablet 5 Mg PO HS Calcium 500 + Vit D 400 Tablet (Calcium Carbonate/Vitamin D3) 1 Each Tablet 1 Each PO DAILY I have reviewed the current psychotropics carefully including drug interactions. Risk benefit ratio favors no change other than as noted in my dictated progress note. Diagnosis: Problems: (1) Anxiety disorder (2) Dementia, vascular, with delusions (3) Dementia, vascular, with depression (4) Dementia in Alzheimer's disease with delusions (5) Dementia in Alzheimer's disease with depression (6) Impulse control disorder VIKI VALLE MD Jun 05, 2018 22:49
--- NOTE | 2018-06-05 22:51 | PN ---
DATE: 06/04/2018 This is a late entry for 06/04/2018 covers elements not covered in my initial note. SUBJECTIVE: The patient was staffed at a treatment team meeting with the entire team in the morning and Jannet, the nurse from the [facility], attended the conference. Reviewed the patient's history, diagnosis, progress, treatment on Risperdal at length. In the past, she was on 1 mg Risperdal and was having extrapyramidal side effects. She is currently on 0.25 mg for psychosis, tolerating it better. She slept 7-1/2 hours previous night. Appetite is 50%. We will consult Dr. Vela, Neurology for possible Parkinson's. She does have some head and hand tremors, minimal. REVIEW OF SYSTEMS: Ambulation impaired with walker. No CV, , pulmonary, eye system symptoms on review. MENTAL STATUS EXAM: Oriented to herself. Insight, judgment, recent and remote memory, attention, concentration, fund of knowledge poor, consistent with her diagnoses. IMPRESSION: Major neurocognitive disorder, Alzheimer, vascular with delusion, depression, behavioral disturbance. Rest unchanged. PLAN: No change from initial note. MAN Eddi VALLE MD DR: SPIKE/stefano JOB#: [id number] / [id number]
[2018-06-06] MEDS: LEVOTHYROXINE 100 MCG TABLET PO SCH (05:48)
[2018-06-06 06:03] VITALS: BP 130/72
[2018-06-06] MEDS: MIRABEGRON 25 MG TAB.ER.24H PO SCH (07:28)
[2018-06-06] MEDS: PROPAFENONE 150 MG TABLET. PO SCH ×3 (07:28→22:10)
[2018-06-06] MEDS: ACETAMINOPHEN 325 MG TABLET PO SCH ×2 (07:28→21:56)
[2018-06-06] MEDS: GABAPENTIN 100 MG CAPSULE. PO SCH ×3 (07:28→21:55)
[2018-06-06] MEDS: CALCIUM CARB/VIT D3 500/200 TABLET PO SCH (07:28)
[2018-06-06] MEDS: APIXABAN 5 MG TABLET. PO SCH ×2 (07:28→21:55)
[2018-06-06] MEDS: levETIRAcetam 500 MG TABLET PO SCH ×2 (07:28→21:56)
[2018-06-06] MEDS: SERTRALINE 50 MG TABLET. PO SCH (07:28)
[2018-06-06] MEDS: LACTOBACILLUS RHAMNOSUS GG 1 CAPSULE. PO SCH ×2 (07:28→21:58)
[2018-06-06 09:46] LABS: BASO % 0 % (0-3); EOS # 0.2 x10^3/uL (0.0-0.7); EOS % 4 % (0-3); HEMATOCRIT 35.8 % (36.0-47.0); LYMPH # 1.4 x10^3/uL (1.0-4.8); LYMPH % 36 % (24-48); MEAN CORPUSCULAR HEMOGLOBIN 32 pg (25-35); MEAN CORPUSCULAR HGB CONC 33 g/dL (31-37); MEAN CORPUSCULAR VOLUME 96 fL (79-100); MONO # 0.4 x10^3/uL (0.0-1.1); MONO % 10 % (0-9); NEUT % 50 % (31-73); PLATELET COUNT 202 x10^3/uL (140-400); RED BLOOD COUNT 3.73 x10^6/uL (3.50-5.40); RED CELL DISTRIBUTION WIDTH 13.2 % (11.5-14.5); WHITE BLOOD COUNT 3.9 x10^3/uL (4.0-11.0)
[2018-06-06 09:54] LABS: ALBUMIN 3.3 g/dL (3.4-5.0); ALBUMIN/GLOBULIN RATIO 0.9 (1.0-1.7); CALCIUM 8.6 mg/dL (8.5-10.1); CREATININE 1.2 mg/dL (0.6-1.0); GFR 43.2; TOTAL BILIRUBIN 0.4 mg/dL (0.2-1.0); TOTAL PROTEIN 6.8 g/dL (6.4-8.2)
[2018-06-06] MEDS: LORazepam 0.5 MG TABLET PO SCH (12:00)
[2018-06-06 15:45] VITALS: BP 115/71
[2018-06-06] MEDS: risperiDONE 0.25 MG TABLET. PO SCH (21:55)
[2018-06-06] MEDS: DONEPEZIL HCL 10 MG TABLET PO SCH (21:56)
--- NOTE | 2018-06-06 22:17 | PDOC ---
Exam Note: Christopher Note: Please also refer to the separate dictated note~for this date of service dictated separately.~Patient seen individually. Discussed the patient with Nursing staff reviewed the chart.~Reviewed interim history and current functioning. Reviewed vital signs,~Labs/ Radiology~and current medications noted below. Continue current treatment with the changes noted in the dictated addendum note Assessment: Vital Signs: Vital Signs Date Time Temp Pulse Resp B/P (MAP) Pulse Ox O2 Delivery O2 Flow Rate FiO2 06/06/18 22:10 62 113/67 06/06/18 15:45 97.6 20 96 Room Air I&O Intake and Output 06/06/18 07:01 Intake Total 720 ml Balance 720 ml Intake Oral 720 ml Labs: Laboratory Tests Test 06/06/18 09:04 White Blood Count 3.9 x10^3/uL (4.0-11.0) L Red Blood Count 3.73 x10^6/uL (3.50-5.40) Hemoglobin 12.0 g/dL (12.0-15.5) Hematocrit 35.8 % (36.0-47.0) L Mean Corpuscular Volume 96 fL (79-100) Mean Corpuscular Hemoglobin 32 pg (25-35) Mean Corpuscular Hemoglobin Concent 33 g/dL (31-37) Red Cell Distribution Width 13.2 % (11.5-14.5) Platelet Count 202 x10^3/uL (140-400) Neutrophils (%) (Auto) 50 % (31-73) Lymphocytes (%) (Auto) 36 % (24-48) Monocytes (%) (Auto) 10 % (0-9) H Eosinophils (%) (Auto) 4 % (0-3) H Basophils (%) (Auto) 0 % (0-3) Neutrophils # (Auto) 2.0 x10^3uL (1.8-7.7) Lymphocytes # (Auto) 1.4 x10^3/uL (1.0-4.8) Monocytes # (Auto) 0.4 x10^3/uL (0.0-1.1) Eosinophils # (Auto) 0.2 x10^3/uL (0.0-0.7) Basophils # (Auto) 0.0 x10^3/uL (0.0-0.2) Sodium Level 142 mmol/L (136-145) Potassium Level 4.0 mmol/L (3.5-5.1) Chloride Level 106 mmol/L (98-107) Carbon Dioxide Level 29 mmol/L (21-32) Anion Gap 7 (6-14) Blood Urea Nitrogen 17 mg/dL (7-20) Creatinine 1.2 mg/dL (0.6-1.0) H Estimated GFR (Cockcroft-Gault) 43.2 BUN/Creatinine Ratio 14 (6-20) Glucose Level 91 mg/dL (70-99) Calcium Level 8.6 mg/dL (8.5-10.1) Total Bilirubin 0.4 mg/dL (0.2-1.0) Aspartate Amino Transferase (AST) 27 U/L (15-37) Alanine Aminotransferase (ALT) 23 U/L (14-59) Alkaline Phosphatase 78 U/L (46-116) Total Protein 6.8 g/dL (6.4-8.2) Albumin 3.3 g/dL (3.4-5.0) L Albumin/Globulin Ratio 0.9 (1.0-1.7) L Current Medications: Meds: Current Medications Acetaminophen (Tylenol) 650 mg BID PO Last administered on 06/06/18 21:56; Start 05/24/18 at 21:00 Gabapentin (Neurontin) 200 mg TID PO Last administered on 06/06/18at 21:55; Start 05/24/18 at 14:30 Levothyroxine Sodium (Synthroid) 100 mcg DAILYAC PO Last administered on at 07:56; Start 05/25/18 at 07:30; Stop 05/25/18 at 07:59; Status DC Al Hydroxide/Mg Hydroxide (Mylanta Plus Xs) 20 ml PRN Q4HRS PRN PO DYSPEPSIA; Start 05/24/18 at 13:45 Mirabegron (Myrbetriq) 25 mg DAILY PO Last administered on 06/06/18at 07:28; Start 05/25/18 at 09:00 Tramadol HCl (Ultram) 50 mg PRN Q8HRS PRN PO PAIN; Start 05/24/18 at 13:45 Acetaminophen (Tylenol) 1,000 mg PRN Q6HRS PRN PO PAIN / TEMP; Start 05/24/18 at 14:30 Apixaban (Eliquis) 5 mg BID PO Last administered on 06/06/18 21:55; Start 05/24 at 21:00 Bisacodyl (Dulcolax Supp) 10 mg PRN DAILY PRN [place] CONSTIPATION; Start 05/24/18 at 14:30 Calcium/Vitamin D (Oscal D 500mg/ 200uts) 1 tab DAILY PO Last administered on 07:28; Start 05/25/18 at 09:00 Donepezil HCl (Aricept) 5 mg HS PO Last administered on 05/26/18 20:09; Start 05/24/18 at 21:00; Stop 05/27/18 at 18:19; Status DC Levetiracetam (Keppra) 500 mg BID PO Last administered on 06/06/18 21:56; Start 05/24/18 at 21:00 Lorazepam (Ativan) 0.5 mg DAILYWLUN PO Last administered on 06/06/18at 12:00; Start 05/25/18 at 12:00 Lorazepam (Ativan) 0.5 mg PRN Q6HRS PRN PO ANXIETY / AGITATION Last administered on 05/28/18 16:00; Start 05/24/18 at 14:30 Magnesium Hydroxide (Milk Of Magnesia) 2,400 mg PRN QHS PRN PO CONSTIPATION Last administered on 06/03/18 17:01; Start 05/24/18 at 14:30 Olanzapine (ZyPREXA ZYDIS) 2.5 mg PRN Q6HRS PRN PO ANXIETY / AGITATION Last administered on 05/31/18at 18:07; Start 05/24/18 at 14:45; Stop 05/31/18 at 20:27 ; Status DC Non-Formulary Medication (Propafenone Hcl ) 150 mg TID PO ; Start 05/24/18 at 14 :00; Stop 05/24/18 at 14:37; Status DC Risperidone (RisperDAL) 0.5 mg PRN Q12HR PRN PO ANXIETY / AGITATION; Start at 14:45; Stop 05/25/18 at 21:57; Status DC Trazodone HCl (Desyrel) 50 mg PRN QHS PRN PO INSOMNIA; Start 05/24/18 at 14:45 Multi-Ingredient Ointment (Analgesic [place]) 1 norbert PRN QID PRN TP MUSCLE PAIN; Start 05/24/18 at 14:15 Propafenone HCl (Rythmol) 150 mg TID PO ; Start 05/24/18 at 21:00; Status Cancel Propafenone HCl (Rythmol) 150 mg TID PO Last administered on 06/06/18at 22:10; Start 05/24/18 at 15:00 Levothyroxine Sodium (Synthroid) 100 mcg 0600 PO Last administered on 06/06/18at 05:48; Start 05/26/18 at 06:00 Vitamin D (Vitamin D3) 50,000 unit WEEKLY PO ; Start 05/25/18 at 18:15; Stop at 18:36; Status DC Vitamin D (Vitamin D3) 50,000 unit WEEKLY PO Last administered on 06/02/18at 08: 03; Start 05/26/18 at 09:00 Sertraline HCl (Zoloft) 25 mg DAILY PO Last administered on 05/28/18at 07:59; Start 05/26/18 at 09:00; Stop 05/29/18 at 08:59; Status DC Sertraline HCl (Zoloft) 50 mg DAILY PO Last administered on 06/06/18at 07:28; Start 05/29/18 at 09:00 Donepezil HCl (Aricept) 10 mg QHS PO Last administered on 06/06/18at 21:56; Start 05/27/18 at 21:00 Amoxicillin/ Clavulanate Potassium (Augmentin 500/ 125mg) 1 tab BID PO Last administered on 06/04/18at 12:19; Start 05/28/18 at 21:00; Stop 06/04/18 at 20:59 ; Status DC Lactobacillus Rhamnosus (Culturelle) 1 cap BID PO Last administered on at 21:58; Start 05/29/18 at 09:00 Carbidopa/Levodopa (Sinemet Cr) 1 tab.sa TID PO ; Start 05/31/18 at 21:00; Stop 05/31/18 at 21:00; Status DC Olanzapine (ZyPREXA ZYDIS) 2.5 mg PRN Q2HR PRN PO ANXIETY / AGITATION Last administered on 06/06/18at 14:04; Start 05/31/18 at 20:30 Olanzapine (ZyPREXA ZYDIS) 5 mg 1X ONCE PO Last administered on 05/31/18at 20: 36; Start 05/31/18 at 20:30; Stop 05/31/18 at 20:34; Status DC Risperidone (RisperDAL) 0.25 mg HS PO Last administered on 06/06/18at 21:55; Start 06/01/18 at 21:00 Active Scripts Active Reported Acetaminophen 500 Mg Tablet 1,000 Mg PO PRN Q6HRS PRN Lorazepam 0.5 Mg Tablet 0.5 Mg PO PRN Q6HRS PRN Dulcolax (Bisacodyl) 10 Mg Supp.rect 10 Mg RC PRN DAILY PRN Maalox Maximum Strength Susp (Mag Hydrox/Al Hydrox/Simeth) 355 Ml Oral.susp 20 Ml PO PRN Q4HRS PRN Propafenone Hcl 150 Mg Tablet 150 Mg PO TID Myrbetriq (Mirabegron) 25 Mg Tab.er.24h 25 Mg PO DAILY Trazodone Hcl 50 Mg Tablet 50 Mg PO PRN QHS PRN Tramadol Hcl (Tramadol HCl) 50 Mg Tablet 50 Mg PO PRN Q8HRS PRN Risperdal (Risperidone) 0.5 Mg Tablet 0.5 Mg PO PRN Q12HR PRN Olanzapine 5 Mg Tablet 2.5 Mg PO PRN Q6HRS PRN Milk Of Magnesia (Magnesium Hydroxide) 2,400 Mg/10 Ml Oral.susp 2,400 Mg PO PRN QHS PRN Tylenol (Acetaminophen) 325 Mg Tablet 650 Mg PO BID Lorazepam 0.5 Mg Tablet 0.5 Mg PO DAILYWLUN Levothyroxine Sodium 100 Mcg Tablet 100 Mcg PO DAILYAC Levetiracetam 500 Mg Tablet 500 Mg PO BID Gabapentin (Gabapentin) 100 Mg Capsule 200 Mg PO TID Eliquis (Apixaban) 5 Mg Tablet 5 Mg PO BID Donepezil Hcl 5 Mg Tablet 5 Mg PO HS Calcium 500 + Vit D 400 Tablet (Calcium Carbonate/Vitamin D3) 1 Each Tablet 1 Each PO DAILY I have reviewed the current psychotropics carefully including drug interactions. Risk benefit ratio favors no change other than as noted in my dictated progress note. Diagnosis: Problems: (1) Anxiety disorder (2) Dementia, vascular, with delusions (3) Dementia, vascular, with depression (4) Dementia in Alzheimer's disease with delusions (5) Dementia in Alzheimer's disease with depression (6) Impulse control disorder VIKI VALLE MD Jun 06, 2018 22:17
[2018-06-07] MEDS: LEVOTHYROXINE 100 MCG TABLET PO SCH (04:42)
[2018-06-07 05:56] VITALS: BP 111/66
[2018-06-07] MEDS: levETIRAcetam 500 MG TABLET PO SCH ×2 (07:38→19:45)
[2018-06-07] MEDS: LACTOBACILLUS RHAMNOSUS GG 1 CAPSULE. PO SCH ×2 (07:39→19:44)
[2018-06-07] MEDS: APIXABAN 5 MG TABLET. PO SCH ×2 (07:39→19:45)
[2018-06-07] MEDS: CALCIUM CARB/VIT D3 500/200 TABLET PO SCH (07:39)
[2018-06-07] MEDS: MIRABEGRON 25 MG TAB.ER.24H PO SCH (07:39)
[2018-06-07] MEDS: PROPAFENONE 150 MG TABLET. PO SCH ×3 (07:39→19:44)
[2018-06-07] MEDS: ACETAMINOPHEN 325 MG TABLET PO SCH ×2 (07:40→19:44)
[2018-06-07] MEDS: GABAPENTIN 100 MG CAPSULE. PO SCH ×3 (07:43→19:46)
[2018-06-07] MEDS: SERTRALINE 50 MG TABLET. PO SCH (07:43)
[2018-06-07] MEDS: LORazepam 0.5 MG TABLET PO SCH (12:00)
[2018-06-07 15:52] VITALS: BP 114/83
[2018-06-07] MEDS: risperiDONE 0.25 MG TABLET. PO SCH (19:44)
[2018-06-07] MEDS: DONEPEZIL HCL 10 MG TABLET PO SCH (19:45)
--- NOTE | 2018-06-07 22:19 | PDOC ---
Exam Note: Christopher Note: Please also refer to the separate dictated note~for this date of service dictated separately.~Patient seen individually. Discussed the patient with Nursing staff reviewed the chart.~Reviewed interim history and current functioning. Reviewed vital signs,~Labs/ Radiology~and current medications noted below. Continue current treatment with the changes noted in the dictated addendum note Assessment: Vital Signs: Vital Signs Date Time Temp Pulse Resp B/P (MAP) Pulse Ox O2 Delivery O2 Flow Rate FiO2 06/07/18 19:44 72 147/77 06/07/18 15:52 98.5 18 92 Room Air I&O Intake and Output 06/07/18 07:01 Intake Total 360 ml Balance 360 ml Intake Oral 360 ml # Bowel Movements 1 Current Medications: Meds: Current Medications Acetaminophen (Tylenol) 650 mg BID PO Last administered on 06/07/18at 19:44; Start 05/24/18 at 21:00 Gabapentin (Neurontin) 200 mg TID PO Last administered on 06/07/18 19:46; Start 05/24/18 at 14:30 Levothyroxine Sodium (Synthroid) 100 mcg DAILYAC PO Last administered on at 07:56; Start 05/25/18 at 07:30; Stop 05/25/18 at 07:59; Status DC Al Hydroxide/Mg Hydroxide (Mylanta Plus Xs) 20 ml PRN Q4HRS PRN PO DYSPEPSIA; Start 05/24/18 at 13:45 Mirabegron (Myrbetriq) 25 mg DAILY PO Last administered on 06/07/18at 07:39; Start 05/25/18 at 09:00 Tramadol HCl (Ultram) 50 mg PRN Q8HRS PRN PO PAIN; Start 05/24/18 at 13:45 Acetaminophen (Tylenol) 1,000 mg PRN Q6HRS PRN PO PAIN / TEMP; Start 05/24/18 at 14:30 Apixaban (Eliquis) 5 mg BID PO Last administered on 06/07/18at 19:45; Start 05/24 at 21:00 Bisacodyl (Dulcolax Supp) 10 mg PRN DAILY PRN [place] CONSTIPATION; Start 05/24/18 at 14:30 Calcium/Vitamin D (Oscal D 500mg/ 200uts) 1 tab DAILY PO Last administered on 07:39; Start 05/25/18 at 09:00 Donepezil HCl (Aricept) 5 mg HS PO Last administered on 05/26/18 20:09; Start 05/24/18 at 21:00; Stop 05/27/18 at 18:19; Status DC Levetiracetam (Keppra) 500 mg BID PO Last administered on 06/07/18 19:45; Start 05/24/18 at 21:00 Lorazepam (Ativan) 0.5 mg DAILYWLUN PO Last administered on 06/07/18 12:00; Start 05/25/18 at 12:00 Lorazepam (Ativan) 0.5 mg PRN Q6HRS PRN PO ANXIETY / AGITATION Last administered on 05/28/18 16:00; Start 05/24/18 at 14:30 Magnesium Hydroxide (Milk Of Magnesia) 2,400 mg PRN QHS PRN PO CONSTIPATION Last administered on 06/03/18 17:01; Start 05/24/18 at 14:30 Olanzapine (ZyPREXA ZYDIS) 2.5 mg PRN Q6HRS PRN PO ANXIETY / AGITATION Last administered on 05/31/18 18:07; Start 05/24/18 at 14:45; Stop 05/31/18 at 20:27 ; Status DC Non-Formulary Medication (Propafenone Hcl ) 150 mg TID PO ; Start 05/24/18 at 14 :00; Stop 05/24/18 at 14:37; Status DC Risperidone (RisperDAL) 0.5 mg PRN Q12HR PRN PO ANXIETY / AGITATION; Start at 14:45; Stop 05/25/18 at 21:57; Status DC Trazodone HCl (Desyrel) 50 mg PRN QHS PRN PO INSOMNIA; Start 05/24/18 at 14:45 Multi-Ingredient Ointment (Analgesic [place]) 1 norbert PRN QID PRN TP MUSCLE PAIN; Start 05/24/18 at 14:15 Propafenone HCl (Rythmol) 150 mg TID PO ; Start 05/24/18 at 21:00; Status Cancel Propafenone HCl (Rythmol) 150 mg TID PO Last administered on 06/07/18 19:44; Start 05/24/18 at 15:00 Levothyroxine Sodium (Synthroid) 100 mcg 0600 PO Last administered on 06/07/18 04:42; Start 05/26/18 at 06:00 Vitamin D (Vitamin D3) 50,000 unit WEEKLY PO ; Start 05/25/18 at 18:15; Stop at 18:36; Status DC Vitamin D (Vitamin D3) 50,000 unit WEEKLY PO Last administered on 06/02/18 08: 03; Start 05/26/18 at 09:00 Sertraline HCl (Zoloft) 25 mg DAILY PO Last administered on 05/28/18 07:59; Start 05/26/18 at 09:00; Stop 05/29/18 at 08:59; Status DC Sertraline HCl (Zoloft) 50 mg DAILY PO Last administered on 06/06/18 07:28; Start 05/29/18 at 09:00; Stop 06/07/18 at 00:43; Status DC Donepezil HCl (Aricept) 10 mg QHS PO Last administered on 06/07/18 19:45; Start 05/27/18 at 21:00 Amoxicillin/ Clavulanate Potassium (Augmentin 500/ 125mg) 1 tab BID PO Last administered on 06/04/18 12:19; Start 05/28/18 at 21:00; Stop 06/04/18 at 20:59 ; Status DC Lactobacillus Rhamnosus (Culturelle) 1 cap BID PO Last administered on 19:44; Start 05/29/18 at 09:00 Carbidopa/Levodopa (Sinemet Cr) 1 tab.sa TID PO ; Start 05/31/18 at 21:00; Stop 05/31/18 at 21:00; Status DC Olanzapine (ZyPREXA ZYDIS) 2.5 mg PRN Q2HR PRN PO ANXIETY / AGITATION Last administered on 06/06/18 14:04; Start 05/31/18 at 20:30 Olanzapine (ZyPREXA ZYDIS) 5 mg 1X ONCE PO Last administered on 05/31/18 20: 36; Start 05/31/18 at 20:30; Stop 05/31/18 at 20:34; Status DC Risperidone (RisperDAL) 0.25 mg HS PO Last administered on 06/07/18at 19:44; Start 06/01/18 at 21:00 Sertraline HCl (Zoloft) 75 mg DAILY PO Last administered on 06/07/18at 07:43; Start 06/07/18 at 09:00 Active Scripts Active Reported Acetaminophen 500 Mg Tablet 1,000 Mg PO PRN Q6HRS PRN Lorazepam 0.5 Mg Tablet 0.5 Mg PO PRN Q6HRS PRN Dulcolax (Bisacodyl) 10 Mg Supp.rect 10 Mg RC PRN DAILY PRN Maalox Maximum Strength Susp (Mag Hydrox/Al Hydrox/Simeth) 355 Ml Oral.susp 20 Ml PO PRN Q4HRS PRN Propafenone Hcl 150 Mg Tablet 150 Mg PO TID Myrbetriq (Mirabegron) 25 Mg Tab.er.24h 25 Mg PO DAILY Trazodone Hcl 50 Mg Tablet 50 Mg PO PRN QHS PRN Tramadol Hcl (Tramadol HCl) 50 Mg Tablet 50 Mg PO PRN Q8HRS PRN Risperdal (Risperidone) 0.5 Mg Tablet 0.5 Mg PO PRN Q12HR PRN Olanzapine 5 Mg Tablet 2.5 Mg PO PRN Q6HRS PRN Milk Of Magnesia (Magnesium Hydroxide) 2,400 Mg/10 Ml Oral.susp 2,400 Mg PO PRN QHS PRN Tylenol (Acetaminophen) 325 Mg Tablet 650 Mg PO BID Lorazepam 0.5 Mg Tablet 0.5 Mg PO DAILYWLUN Levothyroxine Sodium 100 Mcg Tablet 100 Mcg PO DAILYAC Levetiracetam 500 Mg Tablet 500 Mg PO BID Gabapentin (Gabapentin) 100 Mg Capsule 200 Mg PO TID Eliquis (Apixaban) 5 Mg Tablet 5 Mg PO BID Donepezil Hcl 5 Mg Tablet 5 Mg PO HS Calcium 500 + Vit D 400 Tablet (Calcium Carbonate/Vitamin D3) 1 Each Tablet 1 Each PO DAILY I have reviewed the current psychotropics carefully including drug interactions. Risk benefit ratio favors no change other than as noted in my dictated progress note. Diagnosis: Problems: (1) Anxiety disorder (2) Dementia, vascular, with delusions (3) Dementia, vascular, with depression (4) Dementia in Alzheimer's disease with delusions (5) Dementia in Alzheimer's disease with depression (6) Impulse control disorder VIKI VALLE MD Jun 07, 2018 22:19
--- NOTE | 2018-06-08 01:00 | PN ---
DATE: 06/05/2018 PSYCHIATRIC PROGRESS NOTE This late entry 06/05/2018 covers elements, not covered in my initial note. SUBJECTIVE: I met with the patient in the evening. The patient slept 9-3/4 hours previous night. She has been sarcastic, believes she is the panama hat smearer of this "[employer]." Previous night, she told the nursing staff that she had not seen any of the [employer] workers here for 2 days, compliant with medications. REVIEW OF SYSTEMS: Hard of hearing. No CV, , pulmonary, eye, ENT system symptoms on review. Reliability poor. MENTAL STATUS EXAM: Oriented to herself. Insight, judgment, recent and remote memory, attention, concentration, fund of knowledge poor, consistent with her diagnoses. IMPRESSION: Major neurocognitive disorder, Alzheimer, vascular with delusion, depression, behavioral disturbance. Rest unchanged. PLAN: No change from initial note. MAN Eddi VALLE MD DR: SPIKE/stefano JOB#: [id number] / [id number]
[2018-06-08] MEDS: LEVOTHYROXINE 100 MCG TABLET PO SCH (05:11)
[2018-06-08 06:02] VITALS: BP 130/69
[2018-06-08] MEDS: LACTOBACILLUS RHAMNOSUS GG 1 CAPSULE. PO SCH ×2 (08:57→19:42)
[2018-06-08] MEDS: levETIRAcetam 500 MG TABLET PO SCH ×2 (08:58→19:42)
[2018-06-08] MEDS: SERTRALINE 50 MG TABLET. PO SCH (08:58)
[2018-06-08] MEDS: APIXABAN 5 MG TABLET. PO SCH ×2 (08:58→19:42)
[2018-06-08] MEDS: ACETAMINOPHEN 325 MG TABLET PO SCH ×2 (08:59→19:42)
[2018-06-08] MEDS: CALCIUM CARB/VIT D3 500/200 TABLET PO SCH (08:59)
[2018-06-08] MEDS: MIRABEGRON 25 MG TAB.ER.24H PO SCH (09:02)
[2018-06-08] MEDS: GABAPENTIN 100 MG CAPSULE. PO SCH ×3 (09:02→19:45)
[2018-06-08] MEDS: PROPAFENONE 150 MG TABLET. PO SCH ×3 (09:02→19:45)
[2018-06-08] MEDS: LORazepam 0.5 MG TABLET PO SCH (12:22)
[2018-06-08 16:06] VITALS: BP 131/80
--- NOTE | 2018-06-08 19:37 | PN ---
DATE: 06/06/2018 This late entry for 06/06/2018 covers elements not covered in my initial note. SUBJECTIVE: I met with the patient in the evening in her room. The patient slept 5-1/2 hours previous night. She was agitated, combative at times, refusing medications, took it later in the day. REVIEW OF SYSTEMS: Extremely hard of hearing, confused. REVIEW OF SYSTEMS: No CV, , pulmonary, eye system symptoms on review. Reliability poor. MENTAL STATUS EXAM: Oriented to herself. Insight, judgment, recent and remote memory, attention, concentration, fund of knowledge poor, consistent with her diagnosis mentioned in my initial note. PLAN: Increase Zoloft from 50 mg a day to 75 mg a day after she has been on the 50 mg for 3 days. Rest unchanged from initial note. MAN Eddi VALLE MD DR: SPIKE/stefano JOB#: [id number] / [id number]
[2018-06-08] MEDS: DONEPEZIL HCL 10 MG TABLET PO SCH (19:42)
[2018-06-08] MEDS: risperiDONE 0.25 MG TABLET. PO SCH (19:42)
--- NOTE | 2018-06-08 22:13 | PN ---
DATE: 06/07/2018 This late entry for 06/07/2018 covers elements not covered in my initial note. SUBJECTIVE: I met with the patient in the evening. The patient slept 9-1/2 hours previous night. She has been less agitated. REVIEW OF SYSTEMS: Hard of hearing. No CV, , pulmonary, eye system symptoms on review. Reliability poor. MENTAL STATUS EXAM: Oriented to herself. Insight, judgment, recent and remote memory, attention, concentration, fund of knowledge poor, consistent with her diagnosis mentioned in my initial note. PLAN: No change from initial note. MAN Eddi VALLE MD DR: SPIKE/stefano JOB#: [id number] / [id number]
--- NOTE | 2018-06-08 22:26 | PDOC ---
Exam Note: Christopher Note: Please also refer to the separate dictated note~for this date of service dictated separately.~Patient seen individually. Discussed the patient with Nursing staff reviewed the chart.~Reviewed interim history and current functioning. Reviewed vital signs,~Labs/ Radiology~and current medications noted below. Continue current treatment with the changes noted in the dictated addendum note Assessment: Vital Signs: Vital Signs Date Time Temp Pulse Resp B/P (MAP) Pulse Ox O2 Delivery O2 Flow Rate FiO2 06/08/18 19:45 78 131/80 06/08/18 16:06 98.9 19 94 06/07/18 15:52 Room Air I&O Intake and Output 06/08/18 07:01 Intake Total 840 ml Balance 840 ml Intake Oral 840 ml Current Medications: Meds: Current Medications Acetaminophen (Tylenol) 650 mg BID PO Last administered on 06/08/18at 19:42; Start 05/24/18 at 21:00 Gabapentin (Neurontin) 200 mg TID PO Last administered on 06/08/18 19:45; Start 05/24/18 at 14:30 Levothyroxine Sodium (Synthroid) 100 mcg DAILYAC PO Last administered on at 07:56; Start 05/25/18 at 07:30; Stop 05/25/18 at 07:59; Status DC Al Hydroxide/Mg Hydroxide (Mylanta Plus Xs) 20 ml PRN Q4HRS PRN PO DYSPEPSIA; Start 05/24/18 at 13:45 Mirabegron (Myrbetriq) 25 mg DAILY PO Last administered on 06/08/18at 09:02; Start 05/25/18 at 09:00 Tramadol HCl (Ultram) 50 mg PRN Q8HRS PRN PO PAIN; Start 05/24/18 at 13:45 Acetaminophen (Tylenol) 1,000 mg PRN Q6HRS PRN PO PAIN / TEMP; Start 05/24/18 at 14:30 Apixaban (Eliquis) 5 mg BID PO Last administered on 06/08/18at 19:42; Start 05/24 at 21:00 Bisacodyl (Dulcolax Supp) 10 mg PRN DAILY PRN [place] CONSTIPATION; Start 05/24/18 at 14:30 Calcium/Vitamin D (Oscal D 500mg/ 200uts) 1 tab DAILY PO Last administered on 08:59; Start 05/25/18 at 09:00 Donepezil HCl (Aricept) 5 mg HS PO Last administered on 05/26/18 20:09; Start 05/24/18 at 21:00; Stop 05/27/18 at 18:19; Status DC Levetiracetam (Keppra) 500 mg BID PO Last administered on 06/08/18 19:42; Start 05/24/18 at 21:00 Lorazepam (Ativan) 0.5 mg DAILYWLUN PO Last administered on 06/08/18 12:22; Start 05/25/18 at 12:00 Lorazepam (Ativan) 0.5 mg PRN Q6HRS PRN PO ANXIETY / AGITATION Last administered on 05/28/18 16:00; Start 05/24/18 at 14:30 Magnesium Hydroxide (Milk Of Magnesia) 2,400 mg PRN QHS PRN PO CONSTIPATION Last administered on 06/03/18 17:01; Start 05/24/18 at 14:30 Olanzapine (ZyPREXA ZYDIS) 2.5 mg PRN Q6HRS PRN PO ANXIETY / AGITATION Last administered on 05/31/18 18:07; Start 05/24/18 at 14:45; Stop 05/31/18 at 20:27 ; Status DC Non-Formulary Medication (Propafenone Hcl ) 150 mg TID PO ; Start 05/24/18 at 14 :00; Stop 05/24/18 at 14:37; Status DC Risperidone (RisperDAL) 0.5 mg PRN Q12HR PRN PO ANXIETY / AGITATION; Start at 14:45; Stop 05/25/18 at 21:57; Status DC Trazodone HCl (Desyrel) 50 mg PRN QHS PRN PO INSOMNIA; Start 05/24/18 at 14:45 Multi-Ingredient Ointment (Analgesic [place]) 1 norbert PRN QID PRN TP MUSCLE PAIN; Start 05/24/18 at 14:15 Propafenone HCl (Rythmol) 150 mg TID PO ; Start 05/24/18 at 21:00; Status Cancel Propafenone HCl (Rythmol) 150 mg TID PO Last administered on 06/08/18 19:45; Start 05/24/18 at 15:00 Levothyroxine Sodium (Synthroid) 100 mcg 0600 PO Last administered on 06/08/18 05:11; Start 05/26/18 at 06:00 Vitamin D (Vitamin D3) 50,000 unit WEEKLY PO ; Start 05/25/18 at 18:15; Stop at 18:36; Status DC Vitamin D (Vitamin D3) 50,000 unit WEEKLY PO Last administered on 06/02/18 08: 03; Start 05/26/18 at 09:00 Sertraline HCl (Zoloft) 25 mg DAILY PO Last administered on 05/28/18 07:59; Start 05/26/18 at 09:00; Stop 05/29/18 at 08:59; Status DC Sertraline HCl (Zoloft) 50 mg DAILY PO Last administered on 06/06/18 07:28; Start 05/29/18 at 09:00; Stop 06/07/18 at 00:43; Status DC Donepezil HCl (Aricept) 10 mg QHS PO Last administered on 06/08/18 19:42; Start 05/27/18 at 21:00 Amoxicillin/ Clavulanate Potassium (Augmentin 500/ 125mg) 1 tab BID PO Last administered on 06/04/18at 12:19; Start 05/28/18 at 21:00; Stop 06/04/18 at 20:59 ; Status DC Lactobacillus Rhamnosus (Culturelle) 1 cap BID PO Last administered on 19:42; Start 05/29/18 at 09:00 Carbidopa/Levodopa (Sinemet Cr) 1 tab.sa TID PO ; Start 05/31/18 at 21:00; Stop 05/31/18 at 21:00; Status DC Olanzapine (ZyPREXA ZYDIS) 2.5 mg PRN Q2HR PRN PO ANXIETY / AGITATION Last administered on 06/06/18 14:04; Start 05/31/18 at 20:30 Olanzapine (ZyPREXA ZYDIS) 5 mg 1X ONCE PO Last administered on 05/31/18 20: 36; Start 05/31/18 at 20:30; Stop 05/31/18 at 20:34; Status DC Risperidone (RisperDAL) 0.25 mg HS PO Last administered on 06/08/18at 19:42; Start 06/01/18 at 21:00 Sertraline HCl (Zoloft) 75 mg DAILY PO Last administered on 06/08/18at 08:58; Start 06/07/18 at 09:00 Active Scripts Active Reported Acetaminophen 500 Mg Tablet 1,000 Mg PO PRN Q6HRS PRN Lorazepam 0.5 Mg Tablet 0.5 Mg PO PRN Q6HRS PRN Dulcolax (Bisacodyl) 10 Mg Supp.rect 10 Mg RC PRN DAILY PRN Maalox Maximum Strength Susp (Mag Hydrox/Al Hydrox/Simeth) 355 Ml Oral.susp 20 Ml PO PRN Q4HRS PRN Propafenone Hcl 150 Mg Tablet 150 Mg PO TID Myrbetriq (Mirabegron) 25 Mg Tab.er.24h 25 Mg PO DAILY Trazodone Hcl 50 Mg Tablet 50 Mg PO PRN QHS PRN Tramadol Hcl (Tramadol HCl) 50 Mg Tablet 50 Mg PO PRN Q8HRS PRN Risperdal (Risperidone) 0.5 Mg Tablet 0.5 Mg PO PRN Q12HR PRN Olanzapine 5 Mg Tablet 2.5 Mg PO PRN Q6HRS PRN Milk Of Magnesia (Magnesium Hydroxide) 2,400 Mg/10 Ml Oral.susp 2,400 Mg PO PRN QHS PRN Tylenol (Acetaminophen) 325 Mg Tablet 650 Mg PO BID Lorazepam 0.5 Mg Tablet 0.5 Mg PO DAILYWLUN Levothyroxine Sodium 100 Mcg Tablet 100 Mcg PO DAILYAC Levetiracetam 500 Mg Tablet 500 Mg PO BID Gabapentin (Gabapentin) 100 Mg Capsule 200 Mg PO TID Eliquis (Apixaban) 5 Mg Tablet 5 Mg PO BID Donepezil Hcl 5 Mg Tablet 5 Mg PO HS Calcium 500 + Vit D 400 Tablet (Calcium Carbonate/Vitamin D3) 1 Each Tablet 1 Each PO DAILY I have reviewed the current psychotropics carefully including drug interactions. Risk benefit ratio favors no change other than as noted in my dictated progress note. Diagnosis: Problems: (1) Anxiety disorder (2) Dementia, vascular, with delusions (3) Dementia, vascular, with depression (4) Dementia in Alzheimer's disease with delusions (5) Dementia in Alzheimer's disease with depression (6) Impulse control disorder VIKI VALLE MD Jun 08, 2018 22:26
[2018-06-09] MEDS: LEVOTHYROXINE 100 MCG TABLET PO SCH (05:17)
[2018-06-09 06:08] VITALS: BP 147/79
[2018-06-09] MEDS: GABAPENTIN 100 MG CAPSULE. PO SCH ×3 (09:49→21:26)
[2018-06-09] MEDS: SERTRALINE 50 MG TABLET. PO SCH (09:49)
[2018-06-09] MEDS: LACTOBACILLUS RHAMNOSUS GG 1 CAPSULE. PO SCH ×2 (09:49→21:26)
[2018-06-09] MEDS: levETIRAcetam 500 MG TABLET PO SCH ×2 (09:50→21:26)
[2018-06-09] MEDS: APIXABAN 5 MG TABLET. PO SCH ×2 (09:50→21:26)
[2018-06-09] MEDS: ACETAMINOPHEN 325 MG TABLET PO SCH ×2 (09:50→21:26)
[2018-06-09] MEDS: CALCIUM CARB/VIT D3 500/200 TABLET PO SCH (09:50)
[2018-06-09] MEDS: CHOLECALCIFEROL (VITAMIN D3) 50,000 UNIT CAPSULE PO SCH (09:52)
[2018-06-09] MEDS: PROPAFENONE 150 MG TABLET. PO SCH ×3 (09:53→21:32)
[2018-06-09] MEDS: MIRABEGRON 25 MG TAB.ER.24H PO SCH (09:53)
[2018-06-09] MEDS: LORazepam 0.5 MG TABLET PO SCH (12:05)
[2018-06-09 16:49] VITALS: BP 100/59
[2018-06-09] MEDS: risperiDONE 0.25 MG TABLET. PO SCH (21:26)
[2018-06-09] MEDS: DONEPEZIL HCL 10 MG TABLET PO SCH (21:26)
--- NOTE | 2018-06-09 22:36 | PDOC ---
Exam Note: Christopher Note: Please also refer to the separate dictated note~for this date of service dictated separately.~Patient seen individually. Discussed the patient with Nursing staff reviewed the chart.~Reviewed interim history and current functioning. Reviewed vital signs,~Labs/ Radiology~and current medications noted below. Continue current treatment with the changes noted in the dictated addendum note Assessment: Vital Signs: Vital Signs Date Time Temp Pulse Resp B/P (MAP) Pulse Ox O2 Delivery O2 Flow Rate FiO2 06/09/18 21:32 72 129/75 06/09/18 16:49 97.8 18 98 06/07/18 15:52 Room Air I&O Intake and Output 06/09/18 07:01 Intake Total 1080 ml Balance 1080 ml Intake Oral 1080 ml Current Medications: Meds: Current Medications Acetaminophen (Tylenol) 650 mg BID PO Last administered on 06/09/18at 21:26; Start 05/24/18 at 21:00 Gabapentin (Neurontin) 200 mg TID PO Last administered on 06/09/18at 21:26; Start 05/24/18 at 14:30 Levothyroxine Sodium (Synthroid) 100 mcg DAILYAC PO Last administered on at 07:56; Start 05/25/18 at 07:30; Stop 05/25/18 at 07:59; Status DC Al Hydroxide/Mg Hydroxide (Mylanta Plus Xs) 20 ml PRN Q4HRS PRN PO DYSPEPSIA; Start 05/24/18 at 13:45 Mirabegron (Myrbetriq) 25 mg DAILY PO Last administered on 06/09/18at 09:53; Start 05/25/18 at 09:00 Tramadol HCl (Ultram) 50 mg PRN Q8HRS PRN PO PAIN; Start 05/24/18 at 13:45 Acetaminophen (Tylenol) 1,000 mg PRN Q6HRS PRN PO PAIN / TEMP; Start 05/24/18 at 14:30 Apixaban (Eliquis) 5 mg BID PO Last administered on 06/09/18at 21:26; Start 05/24 at 21:00 Bisacodyl (Dulcolax Supp) 10 mg PRN DAILY PRN [place] CONSTIPATION; Start 05/24/18 at 14:30 Calcium/Vitamin D (Oscal D 500mg/ 200uts) 1 tab DAILY PO Last administered on 09:50; Start 05/25/18 at 09:00 Donepezil HCl (Aricept) 5 mg HS PO Last administered on 05/26/18 20:09; Start 05/24/18 at 21:00; Stop 05/27/18 at 18:19; Status DC Levetiracetam (Keppra) 500 mg BID PO Last administered on 06/09/18 21:26; Start 05/24/18 at 21:00 Lorazepam (Ativan) 0.5 mg DAILYWLUN PO Last administered on 06/09/18 12:05; Start 05/25/18 at 12:00 Lorazepam (Ativan) 0.5 mg PRN Q6HRS PRN PO ANXIETY / AGITATION Last administered on 05/28/18 16:00; Start 05/24/18 at 14:30 Magnesium Hydroxide (Milk Of Magnesia) 2,400 mg PRN QHS PRN PO CONSTIPATION Last administered on 06/03/18 17:01; Start 05/24/18 at 14:30 Olanzapine (ZyPREXA ZYDIS) 2.5 mg PRN Q6HRS PRN PO ANXIETY / AGITATION Last administered on 05/31/18 18:07; Start 05/24/18 at 14:45; Stop 05/31/18 at 20:27 ; Status DC Non-Formulary Medication (Propafenone Hcl ) 150 mg TID PO ; Start 05/24/18 at 14 :00; Stop 05/24/18 at 14:37; Status DC Risperidone (RisperDAL) 0.5 mg PRN Q12HR PRN PO ANXIETY / AGITATION; Start at 14:45; Stop 05/25/18 at 21:57; Status DC Trazodone HCl (Desyrel) 50 mg PRN QHS PRN PO INSOMNIA; Start 05/24/18 at 14:45 Multi-Ingredient Ointment (Analgesic [place]) 1 norbert PRN QID PRN TP MUSCLE PAIN; Start 05/24/18 at 14:15 Propafenone HCl (Rythmol) 150 mg TID PO ; Start 05/24/18 at 21:00; Status Cancel Propafenone HCl (Rythmol) 150 mg TID PO Last administered on 06/09/18 21:32; Start 05/24/18 at 15:00 Levothyroxine Sodium (Synthroid) 100 mcg 0600 PO Last administered on 06/09/18 05:17; Start 05/26/18 at 06:00 Vitamin D (Vitamin D3) 50,000 unit WEEKLY PO ; Start 05/25/18 at 18:15; Stop at 18:36; Status DC Vitamin D (Vitamin D3) 50,000 unit WEEKLY PO Last administered on 06/09/18 09: 52; Start 05/26/18 at 09:00 Sertraline HCl (Zoloft) 25 mg DAILY PO Last administered on 05/28/18 07:59; Start 05/26/18 at 09:00; Stop 05/29/18 at 08:59; Status DC Sertraline HCl (Zoloft) 50 mg DAILY PO Last administered on 06/06/18 07:28; Start 05/29/18 at 09:00; Stop 06/07/18 at 00:43; Status DC Donepezil HCl (Aricept) 10 mg QHS PO Last administered on 06/09/18 21:26; Start 05/27/18 at 21:00 Amoxicillin/ Clavulanate Potassium (Augmentin 500/ 125mg) 1 tab BID PO Last administered on 06/04/18 12:19; Start 05/28/18 at 21:00; Stop 06/04/18 at 20:59 ; Status DC Lactobacillus Rhamnosus (Culturelle) 1 cap BID PO Last administered on 21:26; Start 05/29/18 at 09:00 Carbidopa/Levodopa (Sinemet Cr) 1 tab.sa TID PO ; Start 05/31/18 at 21:00; Stop 05/31/18 at 21:00; Status DC Olanzapine (ZyPREXA ZYDIS) 2.5 mg PRN Q2HR PRN PO ANXIETY / AGITATION Last administered on 06/06/18 14:04; Start 05/31/18 at 20:30 Olanzapine (ZyPREXA ZYDIS) 5 mg 1X ONCE PO Last administered on 05/31/18 20: 36; Start 05/31/18 at 20:30; Stop 05/31/18 at 20:34; Status DC Risperidone (RisperDAL) 0.25 mg HS PO Last administered on 06/09/18at 21:26; Start 06/01/18 at 21:00 Sertraline HCl (Zoloft) 75 mg DAILY PO Last administered on 06/09/18at 09:49; Start 06/07/18 at 09:00 Active Scripts Active Reported Acetaminophen 500 Mg Tablet 1,000 Mg PO PRN Q6HRS PRN Lorazepam 0.5 Mg Tablet 0.5 Mg PO PRN Q6HRS PRN Dulcolax (Bisacodyl) 10 Mg Supp.rect 10 Mg RC PRN DAILY PRN Maalox Maximum Strength Susp (Mag Hydrox/Al Hydrox/Simeth) 355 Ml Oral.susp 20 Ml PO PRN Q4HRS PRN Propafenone Hcl 150 Mg Tablet 150 Mg PO TID Myrbetriq (Mirabegron) 25 Mg Tab.er.24h 25 Mg PO DAILY Trazodone Hcl 50 Mg Tablet 50 Mg PO PRN QHS PRN Tramadol Hcl (Tramadol HCl) 50 Mg Tablet 50 Mg PO PRN Q8HRS PRN Risperdal (Risperidone) 0.5 Mg Tablet 0.5 Mg PO PRN Q12HR PRN Olanzapine 5 Mg Tablet 2.5 Mg PO PRN Q6HRS PRN Milk Of Magnesia (Magnesium Hydroxide) 2,400 Mg/10 Ml Oral.susp 2,400 Mg PO PRN QHS PRN Tylenol (Acetaminophen) 325 Mg Tablet 650 Mg PO BID Lorazepam 0.5 Mg Tablet 0.5 Mg PO DAILYWLUN Levothyroxine Sodium 100 Mcg Tablet 100 Mcg PO DAILYAC Levetiracetam 500 Mg Tablet 500 Mg PO BID Gabapentin (Gabapentin) 100 Mg Capsule 200 Mg PO TID Eliquis (Apixaban) 5 Mg Tablet 5 Mg PO BID Donepezil Hcl 5 Mg Tablet 5 Mg PO HS Calcium 500 + Vit D 400 Tablet (Calcium Carbonate/Vitamin D3) 1 Each Tablet 1 Each PO DAILY I have reviewed the current psychotropics carefully including drug interactions. Risk benefit ratio favors no change other than as noted in my dictated progress note. Diagnosis: Problems: (1) Anxiety disorder (2) Dementia, vascular, with delusions (3) Dementia, vascular, with depression (4) Dementia in Alzheimer's disease with delusions (5) Dementia in Alzheimer's disease with depression (6) Impulse control disorder VIKI VALLE MD Jun 09, 2018 22:36
--- NOTE | 2018-06-09 23:27 | PN ---
DATE: 06/08/2018 PSYCHIATRIC PROGRESS NOTE This late entry for 06/08/2018 covers elements not covered in my initial note. SUBJECTIVE: I met with the patient in the evening. The patient slept 5-1/2 hours previous night. She was cooperative with cares and meds previous night. She is quite hard of hearing, met with her in her room. She has been walking up and down the hallway. At one point, was on her knees in the hallway on the floor. No injuries noted. REVIEW OF SYSTEMS: Other than her being hard of hearing, no CV, , pulmonary, eye system symptoms on review. Reliability poor. MENTAL STATUS EXAM: Oriented to herself. Insight, judgment, recent and remote memory, attention, concentration, fund of knowledge poor, consistent with her diagnosis mentioned in my initial note. PLAN: No change from initial note. MAN Eddi VALLE MD DR: SPIKE/stefano JOB#: [id number] / [id number]
[2018-06-10] MEDS ORDERED: CHOL500021 PO (05:35)
[2018-06-10] MEDS ORDERED: METH29OI TP (05:37)
[2018-06-10] MEDS ORDERED: LACT1CAP21 PO (05:39)
[2018-06-10] MEDS ORDERED: SERT50TA PO (05:43)
[2018-06-10 05:45] VITALS: BP 101/63
[2018-06-10] MEDS: LEVOTHYROXINE 100 MCG TABLET PO SCH (05:56)
[2018-06-10] MEDS: levETIRAcetam 500 MG TABLET PO SCH (07:49)
[2018-06-10] MEDS: LACTOBACILLUS RHAMNOSUS GG 1 CAPSULE. PO SCH (07:49)
[2018-06-10] MEDS: SERTRALINE 50 MG TABLET. PO SCH (07:50)
[2018-06-10] MEDS: CALCIUM CARB/VIT D3 500/200 TABLET PO SCH (07:50)
[2018-06-10] MEDS: APIXABAN 5 MG TABLET. PO SCH (07:50)
[2018-06-10] MEDS: PROPAFENONE 150 MG TABLET. PO SCH ×2 (07:57→13:12)
[2018-06-10] MEDS: MIRABEGRON 25 MG TAB.ER.24H PO SCH (07:57)
[2018-06-10] MEDS: ACETAMINOPHEN 325 MG TABLET PO SCH (07:57)
[2018-06-10] MEDS: GABAPENTIN 100 MG CAPSULE. PO SCH ×2 (07:57→13:12)
[2018-06-10] MEDS: LORazepam 0.5 MG TABLET PO SCH (13:12)
[2018-06-10 15:55] VITALS: BP 115/78
--- NOTE | 2018-06-10 19:37 | PN ---
DATE: 06/09/2018 PSYCHIATRIC PROGRESS NOTE This late entry 06/09/2017 covers elements not covered in my initial note. SUBJECTIVE: I met with the patient in the evening. The patient slept 8-1/4 hours previous night. She is compliant with her medications, confused at times, a little "grumpy" per nursing report. She refused noon Ativan, takes her medications crushed. REVIEW OF SYSTEMS: No CV, , pulmonary, eye, ENT system symptoms on review. Reliability poor. She is hard of hearing. MENTAL STATUS EXAM: Oriented to herself. Insight, judgment, recent and remote memory, attention, concentration, fund of knowledge poor, consistent with her diagnosis mentioned in my initial note. PLAN: No change from initial note with possible transition back to nursing facility to on 06/10/2018. MAN Eddi VALLE MD DR: SPIKE/stefano JOB#: [id number] / [id number]
--- NOTE | 2018-06-10 23:14 | PDOC ---
Exam Note: Christopher Note: Please also refer to the separate dictated note~for this date of service dictated separately.~Patient seen individually. Discussed the patient with Nursing staff reviewed the chart.~Reviewed interim history and current functioning. Reviewed vital signs,~Labs/ Radiology~and current medications noted below. Continue current treatment with the changes noted in the dictated addendum note Assessment: Vital Signs: Vital Signs Date Time Temp Pulse Resp B/P (MAP) Pulse Ox O2 Delivery O2 Flow Rate FiO2 06/10/18 15:55 98.7 79 20 115/78 (90) 96 0.0 06/07/18 15:52 Room Air I&O Intake and Output 06/10/18 07:01 Intake Total 720 ml Balance 720 ml Intake Oral 720 ml # Voids 1 Current Medications: Meds: Current Medications Acetaminophen (Tylenol) 650 mg BID PO Last administered on 06/10/18at 07:57; Start 05/24/18 at 21:00; Stop 06/10/18 at 19:02; Status DC Gabapentin (Neurontin) 200 mg TID PO Last administered on 06/10/18at 13:12; Start 05/24/18 at 14:30; Stop 06/10/18 at 19:02; Status DC Levothyroxine Sodium (Synthroid) 100 mcg DAILYAC PO Last administered on at 07:56; Start 05/25/18 at 07:30; Stop 05/25/18 at 07:59; Status DC Al Hydroxide/Mg Hydroxide (Mylanta Plus Xs) 20 ml PRN Q4HRS PRN PO DYSPEPSIA; Start 05/24/18 at 13:45; Stop 06/10/18 at 19:02; Status DC Mirabegron (Myrbetriq) 25 mg DAILY PO Last administered on 06/10/18at 07:57; Start 05/25/18 at 09:00; Stop 06/10/18 at 19:02; Status DC Tramadol HCl (Ultram) 50 mg PRN Q8HRS PRN PO PAIN; Start 05/24/18 at 13:45; Stop 06/10/18 at 19:02; Status DC Acetaminophen (Tylenol) 1,000 mg PRN Q6HRS PRN PO PAIN / TEMP; Start 05/24/18 at 14:30; Stop 06/10/18 at 19:02; Status DC Apixaban (Eliquis) 5 mg BID PO Last administered on 06/10/18 07:50; Start 05/24 at 21:00; Stop 06/10/18 at 19:02; Status DC Bisacodyl (Dulcolax Supp) 10 mg PRN DAILY PRN DE CONSTIPATION; Start 05/24/18 at 14:30; Stop 06/10/18 at 19:02; Status DC Calcium/Vitamin D (Oscal D 500mg/ 200uts) 1 tab DAILY PO Last administered on at 07:50; Start 05/25/18 at 09:00; Stop 06/10/18 at 19:02; Status DC Donepezil HCl (Aricept) 5 mg HS PO Last administered on 05/26/18at 20:09; Start 05/24/18 at 21:00; Stop 05/27/18 at 18:19; Status DC Levetiracetam (Keppra) 500 mg BID PO Last administered on 06/10/18 07:49; Start 05/24/18 at 21:00; Stop 06/10/18 at 19:02; Status DC Lorazepam (Ativan) 0.5 mg DAILYWLUN PO Last administered on 06/10/18 13:12; Start 05/25/18 at 12:00; Stop 06/10/18 at 19:02; Status DC Lorazepam (Ativan) 0.5 mg PRN Q6HRS PRN PO ANXIETY / AGITATION Last administered on 05/28/18at 16:00; Start 05/24/18 at 14:30; Stop 06/10/18 at 19:02 ; Status DC Magnesium Hydroxide (Milk Of Magnesia) 2,400 mg PRN QHS PRN PO CONSTIPATION Last administered on 06/03/18 17:01; Start 05/24/18 at 14:30; Stop 06/10/18 at 19:02; Status DC Olanzapine (ZyPREXA ZYDIS) 2.5 mg PRN Q6HRS PRN PO ANXIETY / AGITATION Last administered on 05/31/18at 18:07; Start 05/24/18 at 14:45; Stop 05/31/18 at 20:27 ; Status DC Non-Formulary Medication (Propafenone Hcl ) 150 mg TID PO ; Start 05/24/18 at 14 :00; Stop 05/24/18 at 14:37; Status DC Risperidone (RisperDAL) 0.5 mg PRN Q12HR PRN PO ANXIETY / AGITATION; Start at 14:45; Stop 05/25/18 at 21:57; Status DC Trazodone HCl (Desyrel) 50 mg PRN QHS PRN PO INSOMNIA; Start 05/24/18 at 14:45 ; Stop 06/10/18 at 19:02; Status DC Multi-Ingredient Ointment (Analgesic Iuka) 1 kosta PRN QID PRN TP MUSCLE PAIN; Start 05/24/18 at 14:15; Stop 06/10/18 at 19:02; Status DC Propafenone HCl (Rythmol) 150 mg TID PO ; Start 05/24/18 at 21:00; Status Cancel Propafenone HCl (Rythmol) 150 mg TID PO Last administered on 06/10/18at 13:12; Start 05/24/18 at 15:00; Stop 06/10/18 at 19:02; Status DC Levothyroxine Sodium (Synthroid) 100 mcg 0600 PO Last administered on 06/10/18at 05:56; Start 05/26/18 at 06:00; Stop 06/10/18 at 19:02; Status DC Vitamin D (Vitamin D3) 50,000 unit WEEKLY PO ; Start 05/25/18 at 18:15; Stop at 18:36; Status DC Vitamin D (Vitamin D3) 50,000 unit WEEKLY PO Last administered on 06/09/18at 09: 52; Start 05/26/18 at 09:00; Stop 06/10/18 at 19:02; Status DC Sertraline HCl (Zoloft) 25 mg DAILY PO Last administered on 05/28/18at 07:59; Start 05/26/18 at 09:00; Stop 05/29/18 at 08:59; Status DC Sertraline HCl (Zoloft) 50 mg DAILY PO Last administered on 06/06/18at 07:28; Start 05/29/18 at 09:00; Stop 06/07/18 at 00:43; Status DC Donepezil HCl (Aricept) 10 mg QHS PO Last administered on 06/09/18at 21:26; Start 05/27/18 at 21:00; Stop 06/10/18 at 19:02; Status DC Amoxicillin/ Clavulanate Potassium (Augmentin 500/ 125mg) 1 tab BID PO Last administered on 06/04/18at 12:19; Start 05/28/18 at 21:00; Stop 06/04/18 at 20:59 ; Status DC Lactobacillus Rhamnosus (Culturelle) 1 cap BID PO Last administered on at 07:49; Start 05/29/18 at 09:00; Stop 06/10/18 at 19:02; Status DC Carbidopa/Levodopa (Sinemet Cr) 1 tab.sa TID PO ; Start 05/31/18 at 21:00; Stop 05/31/18 at 21:00; Status DC Olanzapine (ZyPREXA ZYDIS) 2.5 mg PRN Q2HR PRN PO ANXIETY / AGITATION Last administered on 06/06/18at 14:04; Start 05/31/18 at 20:30; Stop 06/10/18 at 19:02; Status DC Olanzapine (ZyPREXA ZYDIS) 5 mg 1X ONCE PO Last administered on 05/31/18at 20: 36; Start 05/31/18 at 20:30; Stop 05/31/18 at 20:34; Status DC Risperidone (RisperDAL) 0.25 mg HS PO Last administered on 06/09/18at 21:26; Start 06/01/18 at 21:00; Stop 06/10/18 at 19:02; Status DC Sertraline HCl (Zoloft) 75 mg DAILY PO Last administered on 06/10/18at 07:50; Start 06/07/18 at 09:00; Stop 06/10/18 at 19:02; Status DC Active Scripts Active Reported Zoloft (Sertraline Hcl) 50 Mg Tablet 75 Mg PO DAILY Culturelle (Lactobacillus Rhamnosus Gg) 1 Each Capsule 1 Each PO BID Analgesic Iuka (Methyl Salicylate/Menthol) 28 Gm Oint...g. 1 Kosta TP PRN QID PRN D3-50 (Cholecalciferol (Vitamin D3)) 50,000 Unit Capsule 50,000 Unit PO WEEKLY Acetaminophen 500 Mg Tablet 1,000 Mg PO PRN Q6HRS PRN Lorazepam 0.5 Mg Tablet 0.5 Mg PO PRN Q6HRS PRN Dulcolax (Bisacodyl) 10 Mg Supp.rect 10 Mg RC PRN DAILY PRN Maalox Maximum Strength Susp (Mag Hydrox/Al Hydrox/Simeth) 355 Ml Oral.susp 20 Ml PO PRN Q4HRS PRN Propafenone Hcl 150 Mg Tablet 150 Mg PO TID Myrbetriq (Mirabegron) 25 Mg Tab.er.24h 25 Mg PO DAILY Trazodone Hcl 50 Mg Tablet 50 Mg PO PRN QHS PRN Tramadol Hcl (Tramadol HCl) 50 Mg Tablet 50 Mg PO PRN Q8HRS PRN Risperdal (Risperidone) 0.5 Mg Tablet 0.25 Mg PO QHS Olanzapine 5 Mg Tablet 2.5 Mg PO PRN Q2HR PRN Milk Of Magnesia (Magnesium Hydroxide) 2,400 Mg/10 Ml Oral.susp 2,400 Mg PO PRN QHS PRN Tylenol (Acetaminophen) 325 Mg Tablet 650 Mg PO BID Lorazepam 0.5 Mg Tablet 0.5 Mg PO DAILYWLUN Levothyroxine Sodium 100 Mcg Tablet 100 Mcg PO DAILY06 Levetiracetam 500 Mg Tablet 500 Mg PO BID Gabapentin (Gabapentin) 100 Mg Capsule 200 Mg PO TID Eliquis (Apixaban) 5 Mg Tablet 5 Mg PO BID Donepezil Hcl 5 Mg Tablet 10 Mg PO HS Calcium 500 + Vit D 400 Tablet (Calcium Carbonate/Vitamin D3) 1 Each Tablet 1 Each PO DAILY I have reviewed the current psychotropics carefully including drug interactions. Risk benefit ratio favors no change other than as noted in my dictated progress note. Diagnosis: Problems: (1) Dementia with behavioral disturbance (2) Anxiety disorder (3) Dementia, vascular, with delusions (4) Dementia, vascular, with depression (5) Dementia in Alzheimer's disease with delusions (6) Dementia in Alzheimer's disease with depression (7) Impulse control disorder VIKI VALLE MD Jun 10, 2018 23:14
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
--- NOTE | 2018-06-20 00:38 | PN ---
DATE: 06/17/2018 PSYCHIATRIC PROGRESS NOTE This late entry 06/17/2018, covers elements not covered in my initial note. SUBJECTIVE: I met with the patient in the evening. The patient slept 6-1/4 hours previous night. She is telling nursing staff that she voiced suicidal ideation due to financial problems. Earlier in the day, someone came into her room, she was screaming, agitated at staff's response to this, remained somewhat paranoid. Addressed this with her at great length in the evening individually by myself. No CV, , pulmonary, eye system symptoms on review. MENTAL STATUS EXAM: Oriented to herself and situation. Speech is coherent, rapid at times. Abstraction fair, computation impaired, language function intact, attention span short. Mood and affect somewhat anxious, labile at times. LABORATORY DATA: Reviewed. IMPRESSION: Bipolar I disorder, mixed with psychotic features; borderline personality disorder; posttraumatic stress disorder. PLAN: Start Risperdal 0.5 mg p.o. at bedtime. Check a valproic acid level to reach therapeutic level. Rest unchanged. MAN Eddi VALLE MD DR: SPIKE/stefano JOB#: [id number] / [id number]
== END 2018-06-10 19:01 | DRG 57 ==
LOC: GEROPSY 12:49
PROVIDERS: ADMIT Psychiatry & Neurology Psychiatry; ATTEND Psychiatry & Neurology Psychiatry
DX: G30.9 Alzheimer's disease, unspecified (principal); F01.51 Vascular dementia, unspecified severity, with behavioral disturbance; F02.81 Dementia in other diseases classified elsewhere, unspecified severity, with behavioral disturbance; I42.9 Cardiomyopathy, unspecified; N39.0 Urinary tract infection, site not specified; F41.9 Anxiety disorder, unspecified; F63.9 Impulse disorder, unspecified; E03.9 Hypothyroidism, unspecified; E66.3 Overweight; F32.9 Major depressive disorder, single episode, unspecified; G40.909 Epilepsy, unspecified, not intractable, without status epilepticus; M19.90 Unspecified osteoarthritis, unspecified site; H90.5 Unspecified sensorineural hearing loss; I10 Essential (primary) hypertension; I48.91 Unspecified atrial fibrillation; K21.9 Gastro-esophageal reflux disease without esophagitis; M81.0 Age-related osteoporosis without current pathological fracture; Z86.718 Personal history of other venous thrombosis and embolism; Z95.0 Presence of cardiac pacemaker; Z79.899 Other long term (current) drug therapy; Z91.83 Wandering in diseases classified elsewhere
CPT/HCPCS: 36415; 80053; 80061; 81001; 82306; 82607; 83036; 83540; 83550; 83735; 84436; 84443; 84480; 85025; 86592; 87086; 87186; 93005